=== PATIENT | male | born 1940 | race Caucasian/White ===

== ENCOUNTER → 2018-09-24 12:08 | Outpatient (CLI) | payer MEDICARE, OTHER, SELFPAY ==
--- NOTE | 2018-09-24 12:36 | RAD_ITS ---
STUDY: X-RAY CHEST REASON FOR EXAM: Male, 78 years old. Preop. No chest complaints. TECHNIQUE: PA and lateral views of the chest. COMPARISON: None. FINDINGS: The lungs are clear and expanded. There is no demonstrated pleural abnormality. Normal size heart. Normal mediastinum and mario. Normal visualized pulmonary arteries. Normal visualized aortic arch and descending thoracic aorta. Normal visualized thoracic spine. Normal visualized ribs, clavicles, and shoulders. There is no demonstrated abnormality of the visualized soft tissue structures of the upper abdomen. RAD/Chest PA and Lateral IMPRESSION: Normal x-ray examination of the chest. Electronically Signed: Malachi Morales DO at 12:56 EST Tel , Service support ,
--- NOTE | 2018-09-24 12:48 | EKG12_ITS ---
Test Reason : Blood Pressure : / mmHG Vent. Rate : 054 BPM Atrial Rate : 054 BPM P-R Int : 186 ms QRS Dur : 102 ms QT Int : 428 ms P-R-T Axes : 004 057 037 degrees QTc Int : 405 ms Sinus bradycardia Otherwise normal ECG Confirmed by DB HERRERA, MAGDALENA ([id number]), book or script editor AMALIA SANABRIA ([id number]) on 09/25/2018 9:37:29 AM Referred By: Clark Sanabria Confirmed By:MAGDALENA ACE MD
[2018-09-24 13:59] LABS: Hemoglobin A1c 7.7 % (4.2-6.3)
== END ==
PROVIDERS: Family Provider Preventive Medicine Occupational Medicine; PCP Preventive Medicine Occupational Medicine; Referring Provider Orthopaedic Surgery; Visit Provider Orthopaedic Surgery
DX: Z01.810 Encounter for preprocedural cardiovascular examination (principal); Z01.811 Encounter for preprocedural respiratory examination; E11.9 Type 2 diabetes mellitus without complications
CPT/HCPCS: 36415; 71046; 83036; 93005

== ENCOUNTER → 2020-09-09 13:22 | Outpatient (CLI) | payer MEDICARE, SELFPAY ==
[2020-09-09 14:18] LABS: Hemoglobin A1c 8.9 % (3.8-5.6)
[2020-09-09 14:40] LABS: ALB/GLOB Ratio 1.1 RATIO (0.9-2.4); AST(SGOT) 27 U/L (15-37); Alanine Aminotransfer ALT/SGPT 36 U/L (16-61); Albumin, Serum 3.7 g/dL (3.2-5.0); Alkaline Phosphatase 90 U/L (45-117); Anion Gap 7 (5-15); BUN 18 mg/dL (7-18); BUN/Creat Ratio 31.1 RATIO (10-20); Chloride 104 mmol/L (98-107); Cholesterol 117 mg/dL (200); Creatinine, Serum 0.58 mg/dL (0.70-1.30); EST Glomerular Filtration Rate 144 mL/min (>60); Est Glom Filt Rate - Afr Amer 174 mL/min (>60); Globulin 3.3 g/dL (2.2-4.2); Glucose 203 mg/dL (74-106); High Density Lipoprotein 43 mg/dL; PSA,Total - Annual Screen 2.62 ng/mL (0.00-4.00); Potassium 3.5 mmol/L (3.5-5.1); Sodium Level 140 mmol/L (136-145); Triglycerides 79 mg/dL; Very Low Density Lipoprotein 16 mg/dL (5-40)
== END ==
PROVIDERS: PCP Preventive Medicine Occupational Medicine; Referring Provider Preventive Medicine Occupational Medicine; Visit Provider Preventive Medicine Occupational Medicine
DX: E78.5 Hyperlipidemia, unspecified (principal); E11.9 Type 2 diabetes mellitus without complications; I10 Essential (primary) hypertension; Z12.5 Encounter for screening for malignant neoplasm of prostate
CPT/HCPCS: 36415; 80053; 80061; 82043; 83036; 84153; G0103

== ENCOUNTER → 2021-03-08 14:13 | Outpatient (CLI) | payer MEDICARE, SELFPAY ==
--- NOTE | 2021-03-08 14:20 | RAD_ITS ---
STUDY: X-RAY - LUMBAR SPINE REASON FOR EXAM: Male, 80 years old. Low back pain TECHNIQUE: 2 view(s) of the lumbar spine were obtained. COMPARISON: None FINDINGS: Normal lumbar lordosis. There is no substantial scoliosis. There is a normal alignment of the vertebrae. There is multilevel endplate spondylosis of the lumbar vertebrae. There is multi-level degenerative disc disease with multi-level disc space narrowing. There is no demonstrated fracture. The soft tissue structures are unremarkable. RAD/Lumbar Spine 2 or 3 Views IMPRESSION: Degenerative changes of the spine, as detailed above. Electronically Signed: Warren Powell MD at 11:15 EDT , Service support ,
== END ==
PROVIDERS: PCP Preventive Medicine Occupational Medicine; Referring Provider Anesthesiology Pain Medicine; Visit Provider Anesthesiology Pain Medicine
DX: M54.9 Dorsalgia, unspecified (principal)
CPT/HCPCS: 72100

== ENCOUNTER 2021-03-31 14:30 | Outpatient (RCR) | payer MEDICARE, SELFPAY ==
--- NOTE | 2021-03-15 15:32 | HP.PTEVAL_ITS ---
Patient's Visit Information LOIDA DONG is a 80 year old M referred to Physical Therapy by Dr. Stephanie Dickinson MD with a diagnosis of BACK AND LEG PAIN. Date of Evaluation: 03/15/21 Physical Therapist: Vianca Marks PT, Cert MDT - Visit Plan Frequency: 2-3x /Week Duration: 4-6 Weeks Plan: POSTURE CORRECTION/STRENGTHENING, INSTRUCTION IN APPROPRIATE BODY MECHANICS AND ACTIVITY MODIFICATIONS. DLS STARTING WITH A NEUTRAL SPINE PROGRESSING ROM TOLERATED. MIRIAM LE ROM, STRETCHING AND STRENGTHENING. HEP INSTRUCTION. 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 Present symptoms: MIRIAM LOW BACK, THIGH PAIN. R>L. INTERMITTENT MIRIAM LE NUMBNESS. RIGHT LE SX'S MUCH GREATER THAN LEFT. PAIN BELOW KNEES MIRIAM BEFORE LAST INJECTION. Present since: ABOUT 18 MONTHS OR SO AGO. Pain Scale: WORST 3/10, LEAST 1/10. Currently: 09/27. Commenced as a result of: NO APPARENT REASON. WAS BOTHERING HIM SOME BEFORE R TKR WHICH WAS ABOUT 18 MONTHS. Symptoms at onset: R BACK AND R LE. Worse: STANDING AND WALKING. LIMPING UP STAIRS DUE TO R KNEE STIFFNESS. Better: SITTING. OTHER: PATIENT REPORTS HIS SX'S ARE A LOT BETTER SINCE LAST NEHEMIAS APPROX 03/10/21. Disturbed sleep: NO. Previous history/Previous treatment: NO CHIROPRACTOR FOR YEARS EXCEPT RECENTLY X 3 VISITS FOR MID BACK PAIN SPRING 2020. NO BACK PT. ONLY ONE BACK NEHEMIAS AND THAT WAS LAST WEEK. NO BACK SURGERY. Coughing/sneezing/straining: NO. Gait: BETTER BUT STIFFNESS RIGHT KNEE ON STEPS. GAIT STILL SOMEWHAT TIME AND DISTANCE LIMITED DUE TO PAIN BUT AGAIN - MUCH BETTER SINCE INJECTION. Difficulty initiating urinatin: NO. Accidents: NO. Unexplained weight loss: NO. Imaging: RECENT LUMBAR X-RAY - STUDY: X- RAY - LUMBAR SPINE. REASON FOR EXAM: Male, 80 years old. Low back pain. TECHNIQUE: 2 view(s) of the lumbar spine were obtained. COMPARISON: None. . FINDINGS: Normal lumbar lordosis. There is no substantial scoliosis. There is a. normal alignment of the vertebrae. There is multilevel endplate spondylosis of the lumbar vertebrae. There is. multi-level degenerative disc disease with multi-level disc space. narrowing. There is no demonstrated fracture. The soft tissue structures are unremarkable. . RAD/Lumbar Spine 2 or 3 Views. IMPRESSION: Degenerative changes of the spine, as detailed above. . Electronically Signed: Warren Powell MD. at 11:15 EDT. 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 OTHER: IS CURRENTLY GETTING CHEMOTHERAPY AND RADIATION JUST CONCLUDED FOR LUNG CANCER. - Objective Sitting/Standing Posture: FH. DECREASED LORDOSIS. Active Correction of posture: NE. Other Observations: INDEP TRANSFER SIT TO STAND WITHOUT UE ASSIST. INDEP GAIT INTO PT WITHOUT ANY ASSISTIVE DEVICES OR LOB. Motor deficit: MIRIAM LE STRENGTH STRENGTH GROSSLY 5/5 WITH MMT'ING EXCEPT HIPS 4/5. Sensory deficit: DECREASED RIGHT THIGH AND KNEE LIGHT TOUCH COMPARED TO LEFT. ROM deficit: TIGHT MIRIAM HIP FLEXORS, HS'S AND GASTROC SOLEUS COMPLEX'S. Reflexes: NT. Dural Signs: NEGATIVE MIRIAM LE'S. Lumbar mvmt loss: flex - MOD. ext - YANIRA. R SG - MOD. L SG - YANIRA. Core strength: POOR. Palpation: NO ACUTE LUMBAR, SACRAL OR HIP TENDERNESS TODAY. TREATMENT: NEUROMUSCULAR REEDUCATION - RETRAINING OF MVMT AND POSTURE FOR SITTING, LYING AND STANDING ACTIVITIES. - Goals Goal 1:: DECREASE C/O LOW BACK AND MIRIAM LE SX'S. Goal Time Frame: 4-6 Weeks Goal 2:: IMPROVE STANDING AND WALKING FUNCTION Goal Time Frame: 4-6 Weeks Goal 3:: INSTRUCT INPROPHYLAXIS Goal Time Frame: 4-6 Weeks - Anticipated Interventions Patient/Client Instruction: Educate patient on: Condition, Plan of Care, Risk Factors For the Purpose of:: To improve self management Therapeutic Exercise to Include: Strength training, Body mechanics, Postural training, Flexibilty training, Neuromotor development, Dynamic Lumbar Stabilization For the Purpose of:: To decrease pain, To improve muscle performance and motor function, To increase tolerance to activity/condition/position, To improve ability of physical actions for home/community/work/leisure Thank you for the opportunity to evaluate your patient. For Medicare and Medicare HMO plans, please review the plan of care and approve it. It will need to be FAXED BACK to us at [phone] for Medicare purposes. For Medicare only, by signing this I certify the plan of care. Please let me know if there are questions or concerns regarding this plan of care. Physician Signature: Date:
== END 2021-03-31 19:00 | disposition home or self-care (01) ==
LOC: PT 14:30
PROVIDERS: PCP Preventive Medicine Occupational Medicine; Referring Provider Anesthesiology Pain Medicine; Visit Provider Anesthesiology Pain Medicine
DX: M54.9 Dorsalgia, unspecified (principal); M79.606 Pain in leg, unspecified
CPT/HCPCS: 97035; 97110; 97112; 97162; 97530

== ENCOUNTER → 2021-05-11 17:48 | Outpatient (CLI) | payer MEDICARE, SELFPAY ==
--- NOTE | 2021-05-11 18:15 | MRI_ITS ---
STUDY: MRI LUMBAR SPINE WITHOUT CONTRAST REASON FOR EXAM: Male, 80 years old. BACK AND LEG PAIN TECHNIQUE: Standardized fat and water weighted pulse sequences were obtained in the sagittal and axial planes. COMPARISON: X-ray 03/08/2021 FINDINGS: T12-L1: Normal endplates. Normal disc height, hydration and morphology. Normal bilateral facet joints. Normal central canal and bilateral lateral recesses. Normal bilateral intervertebral neural foramina. Normal lumbar lordosis. There is no substantial scoliosis. Normal conus medullaris that terminates at the L1/L2. L1-2: Normal endplates. Normal disc height, hydration and morphology. Normal bilateral facet joints. Normal central canal and bilateral lateral recesses. Normal bilateral intervertebral neural foramina. L2-3: Normal endplates. Normal disc height, hydration and morphology. Normal bilateral facet joints. Normal central canal and bilateral lateral recesses. Normal bilateral intervertebral neural foramina. L3-4: Mild bilateral facet hypertrophy and ligament flavum hypertrophy. Mild broad disc protrusion produces mild spinal stenosis and mild bilateral neural foraminal stenosis. L4-5: Moderate bilateral facet hypertrophy and ligament flavum hypertrophy. 2 mm of anterolisthesis of L4 on L5 with a moderate broad disc protrusion produces severe spinal stenosis with moderate bilateral neural foraminal stenosis with abutment of the L4 nerve roots bilaterally. L5-S1: Mild broad disc protrusion produces mild spinal stenosis and mild bilateral neural foraminal stenosis. Normal visualized sacral ala. Normal visualized paraspinous soft tissue structures. MRI/Spine Lumbar (Routine) IMPRESSION: Multilevel degenerative changes, as described above. Electronically Signed: Karlo Jones MD at 14:50 EDT Tel , Service support ,
== END ==
PROVIDERS: PCP Preventive Medicine Occupational Medicine; Referring Provider Anesthesiology Pain Medicine; Visit Provider Anesthesiology Pain Medicine
DX: M54.9 Dorsalgia, unspecified (principal); M79.606 Pain in leg, unspecified
CPT/HCPCS: 72148

== ENCOUNTER → 2023-02-09 | Outpatient (CLI) | payer MEDICARE, SELFPAY ==
--- NOTE | 2023-02-09 13:38 | MRI_ITS ---
STUDY: MRI LUMBAR SPINE WITHOUT CONTRAST REASON FOR EXAM: Male, 82 years old. pain into BILATERAL HIPS AND INTO LEGS TECHNIQUE: MRI examination lumbar spine fusion protocol including multiplanar multiecho noncontrast imaging. Contrast: No contrast administered. COMPARISON: 05/11/2021 FINDINGS: Vertebral bodies and alignment. 1. Vertebral body height is maintained throughout the lumbar spine. There has been interval mild wedge compression deformity at T12, Schmorl''s node is identified in the superior endplate of T12 which has developed in the interval. 2. There is a grade 1 anterolisthesis of L4 and L5 estimated at approximately 7 mm anterolisthesis. Discogenic endplate changes are present at the L4-5 level. 3. No destructive marrow replacement processes. 4. Paraspinous soft tissue planes have normal appearance. Normal appearance of the muscular fascial planes of the erector spinae. 5. Normal appearance of the sacrum and sacroiliac joints. Intervertebral disks levels. T12-L1: No evidence of disc herniation or canal stenosis, interval development of Schmorl''s node along the superior endplate of T12 as noted above. No disc herniation or canal stenosis at the T12-L1 level. L1-2: Disc desiccation, broad-based posterior disc bulge and minimal osteophyte without disc herniation canal or foraminal narrowing. L2-3: Disc desiccation, loss of disc height, degenerative endplate changes and broad-based disc bulge and osteophyte without evidence of acute disc herniation canal or foraminal narrowing. Mild facet hypertrophic changes. L3-4: Disc desiccation, facet hypertrophic changes, ligamentum flavum hypertrophy also noted. No acute disc herniation, central canal however is maintained at approximately 7 mm, and there is mild crowding of nerve roots in the lateral recesses in part contributed by concentric chronic appearing disc bulge, findings are stable. There is mild foraminal narrowing without terry nerve root impingement although the emerging RIGHT L3 nerve root is in contact with the disc. L4-5: Degenerative grade 1 anterolisthesis, no pars defects noted. Facet and ligament flavum hypertrophy noted. There is narrowing the central thecal sac to 6 mm, and effacement of the lateral recesses bilaterally. There also appears to be a synovial cyst on the LEFT which significantly deforms the LEFT lateral recess with potential nerve root impingement. Narrowing of the neural foramina bilaterally. L5-S1: Disc desiccation, broad-based posterior disc bulge and osteophyte complex. There is minimal retrolisthesis. No canal stenosis. There is narrowing of the neural foramina particularly on the LEFT and there is contact with the emerging LEFT L5 nerve root. Spinal cord: Normal appearance of the spinal cord and conus. Conus is located at L1. Cauda equina are remarkable for marked crowding of nerve roots at the L4-5 level. Early kinking of nerve roots also noted within the lumbar cistern. No evidence of cord compression or edema. No intramedullary signal abnormality noted. MRI/Spine Lumbar (Routine) IMPRESSION: 1. Extensive multilevel lumbar spondylosis. 2. Persistent grade 1 anterolisthesis of L4 and L5 contributed by degenerative facet changes. There is however moderate narrowing the central canal and significant narrowing of the lateral recesses with potential nerve root impingement as detailed. There is an anteriorly directed synovial cyst on the LEFT which significantly deforms the LEFT lateral recess with potential nerve root impingement. 3. Chronic changes at L5-S1, no evidence of canal stenosis, there is however contact with the emerging L5 nerve root on the LEFT with a chronic appearing disc bulge and osteophyte complex. 4. Moderate spondylosis at remaining levels without canal stenosis. 5. Interval development of wedge deformity at T12 and Schmorl''s node along the superior endplate of T12. No canal stenosis. 6. Normal appearance of the spinal cord and conus. Electronically Signed: Karlo Alfonso MD at 0:45 EDT ,
== END | disposition home or self-care (01) ==
LOC: MRI 13:04
PROVIDERS: PCP Preventive Medicine Occupational Medicine; Referring Provider Orthopaedic Surgery; Visit Provider Orthopaedic Surgery
DX: M48.061 Spinal stenosis, lumbar region without neurogenic claudication (principal); M54.2 Cervicalgia
CPT/HCPCS: 72148

== ENCOUNTER → 2023-03-22 | Outpatient (CLI) | payer MEDICARE, SELFPAY ==
--- NOTE | 2023-03-22 11:57 | US_ITS ---
INDICATION: CHRONIC KIDNEY 2 DISEASE EXAMINATION: Ultrasound US Kidney(s) complete (eg, kidneys and bladder) TECHNIQUE: Segovia scale and color doppler images were obtained of the kidneys. COMPARISON: FINDINGS: RIGHT KIDNEY: 12.0 cm length. There is no hydronephrosis. No shadowing calculus, focal lesion or perinephric collection is demonstrated. LEFT KIDNEY: 12.0 cm length. There is no hydronephrosis. No shadowing calculus, focal lesion or perinephric collection is demonstrated. URINARY BLADDER: Distended. Bladder volume 431 mL. Right ureteral jet was visualized, the left jet was not visualized. Prostate: 5.0 x 4.1 x 4.9 cm.. US/Kidney and Bladder IMPRESSION: Negative renal ultrasound. Electronically Signed: Paulette Bee MD at 23:14 EDT ,
== END | disposition home or self-care (01) ==
PROVIDERS: PCP Preventive Medicine Occupational Medicine; Referring Provider Student in an Organized Health Care Education/Training Program; Visit Provider Student in an Organized Health Care Education/Training Program
DX: N18.2 Chronic kidney disease, stage 2 (mild) (principal); R80.9 Proteinuria, unspecified
CPT/HCPCS: 76770

== ENCOUNTER → 2023-04-05 | Outpatient (CLI) | payer MEDICARE, SELFPAY ==
[2023-04-05 15:39] LABS: Absolute Lymphocyte Count 1.61 X10^3/uL (0.83-4.51); Absolute Neutrophil Count 2.3 X10^3/uL (2.0-7.7); Basophil# 0.02 X10^3/uL; Basophil% 0.4 % (0-1); Eosinophil# 0.06 X10^3/uL; Eosinophils% 1.3 % (0-5); Hematocrit 41.6 % (40-54); Hemoglobin 14.5 g/dL (13.0-16.5); Lymphocyte # 1.61 X10^3/ul (0.83-4.51); Lymphocyte % 35.9 % (19-41); Mean Corp Hgb Conc 34.9 g/dL (32-36); Mean Corpuscular Hgb 30.2 pg (27.0-32.0); Mean Corpuscular Volume 86.7 fL (80-94); Mean Platelet Vol. 9.8 fl (6.2-12.0); Monocyte# 0.45 X10^3/uL; NRBC Flagged by Analyzer 0 % (0-5); Neutrophil # 2.33 X10^3/uL (2.7-7.7); Neutrophil % 52.2 % (47-70); Platelet Count 146 K/mm3 (150-450); RBC Distribution Width CV 12.5 % (11.6-14.6); RBC Distribution Width SD 39.7 fl (35.1-43.9); White Blood Count 4.5 K/mm3 (4.4-11.0)
[2023-04-05 16:19] LABS: Anion Gap 8 (5-15); BUN 19 mg/dL (7-18); BUN/Creat Ratio 29.1 RATIO (10-20); Calcium,Total 8.9 mg/dL (8.5-10.1); Chloride 104 mmol/L (98-107); Creatinine, Serum 0.65 mg/dL (0.70-1.30); EST Glomerular Filtration Rate 124 mL/min (>60); Est Glom Filt Rate - Afr Amer 150 mL/min (>60); Glucose 144 mg/dL (74-106); Potassium 3.5 mmol/L (3.5-5.1); Sodium Level 140 mmol/L (136-145); Uric Acid 4.9 mg/dL (3.5-7.2)
[2023-04-05 16:31] LABS: Protein, Urine (Random) 39.7 mg/dL (<11.9); Protein:Creat Ratio 170 mg/g CRE (0-200)
[2023-04-06 08:12] LABS: PTHIN 44.5 pg/mL (18.4-80.1)
== END | disposition home or self-care (01) ==
LOC: LAB 15:07
PROVIDERS: PCP Preventive Medicine Occupational Medicine; Referring Provider Student in an Organized Health Care Education/Training Program; Visit Provider Student in an Organized Health Care Education/Training Program
DX: N18.2 Chronic kidney disease, stage 2 (mild) (principal); E21.1 Secondary hyperparathyroidism, not elsewhere classified; D63.1 Anemia in chronic kidney disease
CPT/HCPCS: 36415; 80048; 82570; 82652; 82784; 83970; 84156; 84165; 84166; 84550; 85025; 86334

== ENCOUNTER → 2023-04-18 | Outpatient (CLI) | payer MEDICARE, SELFPAY ==
--- NOTE | 2023-04-18 11:03 | EKG12_ITS ---
Test Reason : PREOP Blood Pressure : / mmHG Vent. Rate : 063 BPM Atrial Rate : 107 BPM P-R Int : 000 ms QRS Dur : 082 ms QT Int : 436 ms P-R-T Axes : 000 067 039 degrees QTc Int : 446 ms Sinus rhythm with occasional Premature ventricular complexes Abnormal ECG Confirmed by SHAAN HERRERA, CRISTY ([id number]), editorial project manager LISETTE GUERRERO ([id number]) on 04/20/2023 8:49:17 AM Referred By: Bull York Confirmed By:CASI GARDUNO MD
[2023-04-18 12:14] LABS: Hemoglobin A1c 6.1 % (3.8-5.6)
[2023-04-18 12:50] LABS: HIV - WCH Non-Reactive (Nonreactive); Hepatitis B Surface Antibody Non-Reactive; Hepatitis C Antibody Non-Reactive (Nonreactive)
[2023-04-19 05:07] LABS: Hepatitis A AB, Total Negative (Negative)
[2023-05-30 11:20] LABS: Magnesium 1.8 mg/dL (1.6-2.6)
--- NOTE | 2023-06-08 11:05 | PCM.HP.BLA ---
History and Physical Add?Addendum MR#: [id number] Acct: [id number] Name: LOIDA SALCIDO Rep #: [id number] : 1940 Provider: Dr. Bull York DO Age/Sex: 82/M Location: [facility] [place].ISABELA Status: Signed Intake Vital Signs 01/20/2313:42 Height 6 ft 1 in Intake Visit Reasons: LUMBER SPINE Chief Complaint: Lumbar spine pain Is patient in pain?: Yes Pain scale (1-10): 9 Allergies No Known Allergies Allergy (Verified 01/27/23 11:08) Medications amlodipine 5 mg-valsartan 320 mg tablet 1 tab PO DAILY 02/16/22 [History Confirmed 01/27/23] atorvastatin 20 mg tablet 20 mg PO DAILY 02/16/22 [History Confirmed 01/27/23] carvedilol 25 mg tablet ea PO 02/16/22 [History Confirmed 01/27/23] esomeprazole magnesium 40 mg capsule,delayed release cap PO 02/16/22 [History Confirmed 01/27/23] glipizide 5 mg tablet, extended release 24 hr 5 mg PO DAILY 02/16/22 [History Confirmed 01/27/23] hydrochlorothiazide 25 mg tablet 25 mg PO DAILY 02/16/22 [History Confirmed 01/27/23] pioglitazone 30 mg tablet 30 mg PO DAILY 02/16/22 [History Confirmed 01/27/23] potassium chloride 8 mEq capsule,extended release 8 meq PO DAILY 02/16/22 [History Confirmed 01/27/23] PFSH Social History Smoking Status: Former smoker HPI LUMBER SPINE Details: Parts of this documentation were recorded by a scribe, this documentation accurately reflects the service provided and the decisions made by me, Dr. Bull York DO 01/27/23 [id number]. LOIDA SALCIDO is a 82 year old M here today for follow up on ongoing low back pain. He rates his pain a 9/10 today. He reports the pain has been getting worse over the last several months. He does report numbness and tingling into his legs bilaterally. He states the pain is constant. His previous injections with Dr. Dickinson were not helpful. He would like to discuss what to options are available for control of his pain. He has tried Tylenol, Ibuprofen, heat, ice and stretching to help with his pain. Mr. Salcido returns after not having been seen in quite a while. He was dealing with his who was dying of lung cancer. She passed on in July of last year. He states that overall his symptoms are getting worse the pain goes down both legs with just a little bit of walking. Sitting down makes the pain go away. 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 His MRI scan was from 2020 so it is almost 2 years old. He wishes to have something done surgically and get it fixed. Can get some work done in his urologic system and his eyes sometime this month so it would probably be the end of February before any surgical intervention. On examination today it is noted that he can stand on his toes he can stand on his heels. He walks with a forward bent posture. Extension of his lumbar spine increases his pain and bending forward relieves his pain. He has good motor strength of all the major muscle groups of both lower extremities. He has barely perceptible Achilles reflexes and patellar reflexes bilaterally. We are ordering a new MRI scan of the lumbar spine. Plan on doing his decompression at L4-5 in February. I will see him again after the MRI scan. Coding Level of Care Code Off vis,est,level 3 Diagnoses Spinal stenosis at L4-L5 level M48.061 Time Spent (min) 25 Assessment and Plan Assessment and Plan (1) Spinal stenosis at L4-L5 level: Status: Acute
== END | disposition home or self-care (01) ==
LOC: PAT 06-08 15:52
PROVIDERS: Anesthesiology; PCP Preventive Medicine Occupational Medicine; Referring Provider Orthopaedic Surgery; Visit Provider Orthopaedic Surgery
DX: Z01.810 Encounter for preprocedural cardiovascular examination (principal); Z01.812 Encounter for preprocedural laboratory examination
CPT/HCPCS: 36415; 83036; 83735; 86703; 86706; 86708; 86803; 87081; 93005

== ENCOUNTER → 2023-05-18 | Outpatient (CLI) | payer MEDICARE, SELFPAY | END | disposition home or self-care (01) | LOC: LAB 11:18 | PROVIDERS: PCP Preventive Medicine Occupational Medicine; Referring Provider Internal Medicine Cardiovascular Disease; Visit Provider Internal Medicine Cardiovascular Disease | DX: E11.9 Type 2 diabetes mellitus without complications (principal); I49.3 Ventricular premature depolarization; R94.31 Abnormal electrocardiogram [ECG] [EKG] | CPT/HCPCS: 36415; 84443 ==

== ENCOUNTER → 2023-05-30 | Outpatient (CLI) | payer MEDICARE, SELFPAY | END | disposition home or self-care (01) | LOC: PSN 09:58 | PROVIDERS: PCP Preventive Medicine Occupational Medicine; Referring Provider Physician Assistant Medical; Visit Provider Physician Assistant Medical | DX: I49.3 Ventricular premature depolarization (principal); R94.31 Abnormal electrocardiogram [ECG] [EKG] | CPT/HCPCS: 93225; 93226 ==

== ENCOUNTER → 2023-06-02 | Outpatient (CLI) | payer MEDICARE, SELFPAY ==
--- NOTE | 2023-06-02 06:56 | ECHOCS_ITS ---
Reason For Study: Pre Op Procedure This was a 2D Doppler, Color Flow transthoracic echocardiogram. The study was technically difficult. Contrast injection was performed. Exam performed in department. Left Ventricle Normal LV size. Left ventricular systolic function is normal. The estimated ejection fraction is 60 %. Normal diastology for age. No regional wall motion abnormalities noted. Right Ventricle Normal RV size. Normal systolic function. Atria Normal left atrium. The right atrium is mildly enlarged. Mitral Valve The mitral valve is structurally normal. No prolapse or stenosis seen. Mild (1+) mitral valve insufficiency. Tricuspid Valve Normal tricuspid valve. Trivial tricuspid valve insufficiency. Right ventricular systolic pressure estimated to be 28 mmHg. Aortic Valve Trisinus/trileaflet aortic valve. Mild (1+) eccentric aortic valve insufficiency. Pulmonic Valve Normal pulmonic valve. Mild (1+) pulmonic valve insufficiency. Great Vessels Normal aortic root. Pericardium/Pleural No pericardial effusion. Medication 22 gauge I.V. with prn adaptor inserted into right arm. Diluted definity 1.5ml given slow IV push to enhance endocardial definition. MMode/2D Measurements & Calculations LVIDd: 4.5 cm IVSd: 0.97 cm Ao root diam: 3.8 cm LVIDs: 3.6 cm LVPWd: 0.95 cm LA dimension: 3.8 cm RVDd: 5.3 cm FS: 19.9 % LAV(MOD-bp): 65.2 ml LVAd ap4: 41.6 cm2 SV(MOD-sp4): 73.9 ml LAV(MOD-bp) Indexed: 28.8 ml/m2 LVLd ap4: 9.9 cm LAV(MOD-sp2): 54.6 ml EDV(MOD-sp4): 140.9 ml LAV(MOD-sp4): 72.0 ml EDV(sp4-el): 148.8 ml LVAs ap4: 24.7 cm2 LVLs ap4: 7.7 cm ESV(MOD-sp4): 67.0 ml ESV(sp4-el): 67.8 ml EF(MOD-sp4): 52.5 % EF(sp4-el): 54.5 % SV(sp4-el): 81.1 ml LA A4 area: 23.8 cm2 RA A4 area: 27.9 cm2 TAPSE: 3.2 cm Time Measurements MV dec time: 0.23 sec Doppler Measurements & Calculations MV E max sarabjit: 85.6 cm/sec Lat Peak E' Sarabjit: 10.9 cm/sec Med Peak E' Sarabjit: 9.9 cm/sec MV A max sarabjit: 66.1 cm/sec E/E' lat: 7.8 E/E' med: 8.6 MV E/A: 1.3 MV V2 max: 96.9 cm/sec MV P1/2t max sarabjit: 97.9 cm/sec Ao V2 max: 133.4 cm/sec MV max P.8 mmHg MV P1/2t: 81.0 msec Ao max P.1 mmHg MV V2 mean: 58.3 cm/sec Ao V2 mean: 88.6 cm/sec MV mean P.6 mmHg MV dec slope: 354.2 cm/sec2 Ao mean P.6 mmHg MV V2 VTI: 32.1 cm MVA(P1/2t): 2.7 cm2 Ao V2 VTI: 35.1 cm AV (velocity ratio): 0.73 LV V1 max: 98.9 cm/sec MR max sarabjit: 553.2 cm/sec PA V2 max: 96.5 cm/sec LV V1 max P.9 mmHg MR max P.4 mmHg PA V2 mean: 65.9 cm/sec LV V1 mean P.3 mmHg LV V1 mean: 71.2 cm/sec LV V1 VTI: 25.5 cm TR max sarabjit: 249.6 cm/sec TR max P.9 mmHg ECHO/Echo Complete W/ Contrast Interpretation Summary The estimated ejection fraction is 60 %. The right atrium is mildly enlarged. Mild (1+) mitral valve insufficiency. Mild (1+) eccentric aortic valve insufficiency. Mild (1+) pulmonic valve insufficiency. The study was technically difficult. Contrast injection was performed. Ordering Physician: Greg Nam Referring Physician: Elsa Shirley Performed By: Brodwolf, Robert, RCS
--- NOTE | 2023-06-06 15:36 | STRESSREP_ITS ---
Stress Test Report Date: 06/02/2023 Procedure: Pharmacologic stress nuclear imaging study Indications: Abnormal ECG Consent: Per the patient Procedure: The patient underwent pharmacologic (Regadenoson 0.4mg ) evaluation with a peak heart rate of 70 beats per minute (50%predicted maximal heart rate) and a peak blood pressure of 146/70 mmHg. The baseline ECG demonstrated sinus bradycardia with PVCs. The peak pharmacologic ECG demonstrated no ischemic changes. Frequent PVCs at rest, during infusion and in recovery. There was no complaint of chest discomfort during pharmacologic infusion or recovery. The patient was injected with 14.3 millicuries of technetium 99m Cardiolite and subsequently rest SPECT Cardiolite nuclear imaging was obtained in the horizontal long, vertical long, and short axis views. The patient underwent pharmacologic (Regadenoson) evaluation. The patient was injected with 44.7 millicuries of technetium 99m Cardiolite and subsequently stress SPECT Cardiolite nuclear imaging was obtained in the horizontal long, vertical long, and short axis views. A gated Cardiolite study at peak stress was obtained. The examination was stopped secondary to completion of protocol. Rest and stress SPECT Cardiolite nuclear imaging status post realignment, normalization, and attenuation correction demonstrate no fixed or reversible perfusion defects. There is end systolic thickening and brightening. The gated Cardiolite study demonstrates myocardial thickening and inward wall motion. The reported LVEF is 75%. Impression: 1. Pharmacologic (Regadenoson) evaluation 2. Peak pharmacologic ECG with no ischemic changes. 3. Frequent PVCs at baseline as well as during infusion and in recovery. 5. Rest and stress SPECT Cardiolite nuclear imaging demonstrate relative uniform tracer uptake and myocardial perfusion appearing within normal limits. 6. The gated Cardiolite study reports an LVEF of 75%. This note was generated with [employer] software. It may contain incorrect words, spelling, and punctuation that were not noted in checking the note before signing.
== END | disposition home or self-care (01) ==
PROVIDERS: PCP Preventive Medicine Occupational Medicine; Referring Provider Physician Assistant Medical; Visit Provider Physician Assistant Medical
DX: Z01.810 Encounter for preprocedural cardiovascular examination (principal); R94.31 Abnormal electrocardiogram [ECG] [EKG]; I49.3 Ventricular premature depolarization; I10 Essential (primary) hypertension; E78.5 Hyperlipidemia, unspecified
CPT/HCPCS: 78452; 93017; 93306; A9500; Q9957; A4216; C8929; J2785

== ENCOUNTER → 2023-06-12 | Outpatient (CLI) | payer MEDICARE, SELFPAY ==
--- NOTE | 2023-06-12 13:45 | RAD_ITS ---
STUDY: X-RAY CHEST REASON FOR EXAM: Male, 82 years old. pre-operative- Pacemaker TECHNIQUE: Single AP portable view of the chest. COMPARISON: None. FINDINGS: The lungs are clear and expanded. There is no demonstrated pleural abnormality. Normal size heart. Normal mediastinum and mario. Normal visualized pulmonary arteries. There is atherosclerotic tortuosity of the aortic arch and descending thoracic aorta. There are diffuse degenerative changes of the visualized thoracic spine. Normal visualized ribs, clavicles, and shoulders. There is no demonstrated abnormality of the visualized soft tissue structures of the upper abdomen. RAD/Chest PA and Lateral IMPRESSION: Degenerative changes, as described above. No demonstrated acute cardiopulmonary process. Electronically Signed: Corwin Hayward MD at 8:33 EDT ,
[2023-06-12 13:58] LABS: Bacteria 0 SEEN /hpf (None Seen); Mucous, Urine 0 SEEN /hpf (<or=2+); Red Blood Cells-Urine 0 SEEN /hpf (0-5); Squamous Epithelial Cells - UA 0 SEEN /hpf (0-5); White Blood Cells 0 SEEN /hpf (0-5)
[2023-06-12 15:01] LABS: Hematocrit 42.7 % (40-54); Hemoglobin 14.4 g/dL (13.0-16.5); Mean Corp Hgb Conc 33.7 g/dL (32-36); Mean Corpuscular Hgb 29.6 pg (27.0-32.0); Mean Corpuscular Volume 87.9 fL (80-94); Mean Platelet Vol. 10.2 fl (6.2-12.0); Platelet Count 155 K/mm3 (150-450); RBC Distribution Width CV 12.7 % (11.6-14.6); RBC Distribution Width SD 41.1 fl (35.1-43.9); Red Blood Count 4.86 M/mm3 (4.6-6.2); White Blood Count 4.7 K/mm3 (4.4-11.0)
[2023-06-12 15:03] LABS: Color, Urine Yellow (Yellow); Glucose, Dipstick Normal (Normal); Ketone-Dipstick Negative (Negative); Leukocyte Esterase-Dipstick Negative /ul (Negative); Nitrite-Dipstick Negative (Negative); Occult Blood-Urine 10 /ul (Negative); Protein-Dipstick 15 mg/dl (Negative); Urine Bilirubin Dipstick Negative (Negative); Urine Clarity Clear (Clear); Urine Urobilinogen Normal (Normal)
[2023-06-12 15:08] LABS: International Normalized Ratio 1.2; Prothrombin Time (Protime)PT. 15.3 SECONDS (11.7-14.9)
[2023-06-12 15:23] LABS: Anion Gap 5 (5-15); BUN 16 mg/dL (7-18); BUN/Creat Ratio 27.3 RATIO (10-20); Chloride 104 mmol/L (98-107); Creatinine, Serum 0.59 mg/dL (0.70-1.30); EST Glomerular Filtration Rate 140 mL/min (>60); Est Glom Filt Rate - Afr Amer 170 mL/min (>60); Glucose 148 mg/dL (74-106); Potassium 3.5 mmol/L (3.5-5.1); Sodium Level 138 mmol/L (136-145)
== END | disposition home or self-care (01) ==
PROVIDERS: PCP Preventive Medicine Occupational Medicine; Referring Provider Nurse Practitioner Family; Visit Provider Nurse Practitioner Family
DX: I49.5 Sick sinus syndrome (principal); I44.2 Atrioventricular block, complete; I49.3 Ventricular premature depolarization
CPT/HCPCS: 36415; 71046; 80048; 81001; 85027; 85610

== ENCOUNTER 2023-06-19 13:34 | Observation (INO) | payer MEDICARE, SELFPAY ==
--- NOTE | 2023-06-13 10:58 | PCM.HP.BLA ---
History and Physical Date of Admission: 06/19/23 This is a pleasant 82 year old male who presents to the cardiac recyclable materials [facility] for permanent pacemaker placement. He has a history significant for hypertension, diabetes mellitus and dyslipidemia. He was previously seen for preoperative clearance to undergo back surgery for spinal stenosis. As part of his preop work-up, an ECG was done. It was noted to be abnormal with frequent PVCs. His Holter monitor from 05/30/2023 demonstrated episodes of sinus arrest with accelerated idioventricular escape. Patient denies any chest pains or shortness of breath either at rest or with exertion. Denies any palpitations. No orthopnea. No PND. No ankle edema. Denies any syncope or presyncope. No lightheadedness or dizziness. Intake Vital Signs See EMR Allergies See EMR Medications See EMR [facility] Medical History Abnormal EKG Arthritis Back pain Benign positional vertigo Cardiac arrhythmia DDD (degenerative disc disease), lumbar Diabetes Elevated PSA Essential hypertension Former smoker Gastric reflux High cholesterol History of edema History of pain when walking History of stress test Hyperlipidemia Hypertension Hypokalemia Low back pain Muscle spasm of back Shortness of breath on exertion Sleep apnea Spinal stenosis at L4-L5 level Wears glasses Surgical History History of ankle surgery History of laparoscopic cholecystectomy History of total bilateral knee replacement (TKR) Hx of hemorrhoidectomy Family History Brother Hypertension Atrial fibrillation Cancer prostateFather Cancer prostate Social History Smoking Status: Former smoker how long ago did patient quit smokin years ago alcohol intake: never substance use type: does not use caffeine: Yes Type: coffee Number of servings: 2 ROS Const Const: Positive for fatigue and daytime sleepiness; Negative for weakness, headache(s), frequent falls, difficulty sleeping or excessive sweating Eyes Eyes: Negative for loss of peripheral vision, transient loss of vision, blurry vision, double vision or tunnel vision ENT ENT: Positive for balance problems; Negative for headache(s), dizziness or Nosebleed/epistaxis Cardio Chest Pain: No Palpitations: No Edema: Right Muscle aches with walking: None Resp Respiratory: Negative for SOB with activity, SOB at rest, SOB orthopnea\SOB lying down, Cough or paroxysmal nocturnal dyspnea GI GI: Negative nausea, vomiting, heartburn or black,tarry stools : Negative for hematuria Musc Musc: Positive for joint pain and balance problems; Negative for muscle aches/ myalgia or muscle weakness Skin Skin: Negative non-healing lesions, rash or unusual bruising Neuro Neuro: Negative for dizziness, lightheadedness, near syncope, syncope, frequent falls, headache(s), weakness, blurry vision, double vision or lack of coordination Jonathan Hematologic/Lymphatic: Negative for easy bleeding or easy bruising Endo Endo: Positive for fatigue; Negative for excessive sweating or increased thirst/drinking Psych Psych: Negative for anxiety or depression Allergy Allergy/Immunology: Negative for hives and Negative for rash Cardiology Exam Const Appearance: comfortable and no acute distress Nutritional Appearance: well nourished Neck Neck: no JVD Carotids: Negative bruit Chest Auscultation: Bilateral: Clear to Auscultation Cardio Rate: regular rate Rhythm: regular rhythm Heart sounds: S1 normal and S2 normal Neuro General: patient alert, patient awake and patient oriented x3 Extremities Lower Extremity Edema: None: Bilateral Supplemental Info Supplemental Information Echocardiogram 06/02/2023: Interpretation Summary The estimated ejection fraction is 60 %. The right atrium is mildly enlarged. Mild (1+) mitral valve insufficiency. Mild (1+) eccentric aortic valve insufficiency. Mild (1+) pulmonic valve insufficiency. The study was technically difficult. Contrast injection was performed. Assessment and Plan Assessment and Plan (1) Accelerated idioventricular rhythm: Plan: Patient's Holter monitor from 05/30/2023 demonstrated episodes of sinus arrest with accelerated idioventricular escape. He will proceed with permanent pacemaker placement. (2) Sick Sinus syndrome: Plan: Patient will proceed with permanent pacemaker placement.
[2023-06-16 10:58] VITALS: BMI 29.9
[2023-06-19] VITALS (9 sets, daily range): BP systolic 119–146; BP diastolic 69–85; PULSE 55–70; RESP 14–18; TEMP 36.3–36.7; O2SAT 94–98; BMI 29.8
--- NOTE | 2023-06-19 13:38 | CL.IE_ITS ---
Patient: LOIDA DONG Study Date: 06/19/2023 Performing: Jonh Gracia MD : 1940 Age: 82 Gender: male PROCEDURES PERFORMED LP04-([id number])INITIAL PACER INSERT+DUAL LEADS INDICATIONS Sinoatrial node dysfunction/Sick sinus syndrome PROCEDURE DETAILS The patient was brought to the Catheterization Lab in the postabsorptive nonsedated state. Informed consent was obtained prior to the procedure. Local anesthetic was given subcutaneously to the left upper chest area with Lidocaine 2%. Access was achieved and a guidewire was advanced into the left subclavian vein. PPM ventricular lead was inserted / positioned to right ventricular apex. PPM ventricular lead testing performed. PPM ventricular lead testing performed. PPM atrial lead was inserted / positioned to the right atrial appendage. PPM atrial lead testing performed. The Atrial lead sutured in place with 2-0 Silk. The Ventricular PM lead sutured in place with 2-0 Silk. PPM generator was attached to the lead(s) and inserted into the pocket. Device pocket was irrigated with antibiotic. Subcutaneous closure was completed with 3-0 Vicryl. Skin closure was completed with 4-0 Vicryl. Steri-strips applied to left subclavicular incision. The patient tolerated the procedure well. Estimated Blood Loss: < 10 mls IMPLANTED / EX-PLANTED DEVICES IMPLANTED DEVICE(S): PPM Generator - Control Panel Assembler: [employer], Model # Assurity MRI pulse generator PM [id number] , Serial # [id number] PPM Atrial lead - Control Panel Assembler: [employer], Model # Tendril STS 2088TC , Serial # [id number] PPM Ventricular lead - Control Panel Assembler: [employer], Model # Tendril STS 2088TC , Serial # [id number] DEVICE PARAMETERS ATRIAL LEAD PARAMETERS: P wave- 1.8 (mV) threshold- 0.75 (V) impedence- 440 (OHMS) VENTRICULAR LEAD PARAMETERS: R wave- 10.5 (mV) threshold- 0.5 (V) impedence- 710 (OHMS) DEVICE PARAMETERS: Mode- DDIR Lower rate- 60 Upper rate- 120 CONCLUSIONS / RECOMMENDATIONS Device Conclusions: Successful implantation of a dual chamber pacemaker Device Recommendations: Follow up with Primary Care Physician PROCEDURE MEDICATIONS Versed 1 mg IV Fentanyl 50 mcg IV Versed 1 mg IV Oxygen: 2 L/min via nasal cannula Antibiotic given in appropriate timeframe. Ancef 2 Gm IV @ 06/19/2023 12:23:32 Signed By Jonh Gracia MD On 06/19/2023 13:37:44 Jonh Gracia MD
[2023-06-19] MEDS: Carvedilol 25 MG Tablet PO (21:16)
[2023-06-19] MEDS: Atorvastatin Calcium 20 MG Tablet PO (21:16)
[2023-06-19] MEDS: Acetaminophen 325 MG Tablet 650 MG PO (21:19)
[2023-06-20 03:05] VITALS: BP 136/66; PULSE 61; RESP 18; TEMP 36.7; O2SAT 99
--- NOTE | 2023-06-20 05:55 | RAD_ITS ---
EXAM: XR CHEST, 3 VIEWS CLINICAL INDICATION: Post permanant ICD/Pacemaker -- inspiration/expiration. Arms Down. Wet read to MD TECHNIQUE: Frontal, lateral and one additional view of the chest. COMPARISON: 2 view chest 06/12/2023 FINDINGS: LUNGS AND PLEURAL SPACES: Unremarkable. No consolidation or edema. No pneumothorax. No effusion. HEART: Unremarkable. Cardiac silhouette not enlarged. MEDIASTINUM: Central airways and mediastinal contour are unremarkable. BONES/JOINTS: Unremarkable. SOFT TISSUES: Unremarkable. TUBES, LINES AND DEVICES: Left chest pacer with leads in the right atrium and right ventricle. RAD/Chest 3 View IMPRESSION: Left chest pacer with leads in the right atrium and right ventricle. No pneumothorax identified. Electronically Signed: Kanu Barrios MD at 4:36 EDT ,
--- NOTE | 2023-06-20 08:00 | PCM.PN.CARD ---
Subjective Subjective Patient seen and evaluated. Appears to be doing well. No complaints. Objective Data Vital Signs: Vital Signs Temp Pulse Resp BP Pulse Ox O2 Del Method 98.0 F 61 18 136/66 H 99 Room Air 06/20/23 03:05 06/20/23 03:05 06/20/23 03:05 06/20/23 03:05 06/20/23 03:05 06/20/23 03:15 Oxygen Delivery Method Room Air Weight: 225 lb 15.581 oz Body Mass Index (BMI) 29.8 Intake & Output: Intake and Output for Last 24 Hours 06/18/23 06/19/23 06/20/23 23:59 23:59 23:59 Intake Total 860 / 860 120 / 120 Output Total 625 / 625 200 / 200 Balance 235 / 235 -80 / -80 Cardiology Labs/Tests Rhythm: EKG: ECHO: Stress Test: Cardiac Cath: PCI: CT Surgery: Holter monitor: EPS: PPM: CXR: Chest CT Scan: Radiography Diagnostic Testing: Radiology Impression Chest X-Ray 06/20/23 05:55 IMPRESSION: Left chest pacer with leads in the right atrium and right ventricle. No pneumothorax identified. Electronically Signed: Kanu Barrios MD at 4:36 EDT , Physical Exam Const alert, oriented x3 and no apparent distress General Appearance: cooperative HEENT hearing grossly normal bilaterally Head and Scalp: atraumatic Eyes EOMs intact bilaterally Neck General: normal visual inspection Chest inspection of chest normal and palpation of chest normal Resp normal respiratory effort Auscultation: clear to auscultation bilaterally Cardio regular rate, regular rhythm, S1 normal heart sound and S2 normal heart sound Jugular Venous Distention: JVD GI normal to inspection, nondistended, normoactive bowel sounds Extremity normal capillary refill and no pedal edema Peripheral Pulses: Yes pulses 2+ throughout and femoral pulses present Skin no rashes or lesions noted Neuro oriented x3 and CN's II-XII intact bilaterally Psych Appearance: grossly normal and appropriate Assessment & Plan Assessment/Plan (1) Pacemaker: PLAN: Patient presented with sick sinus syndrome and idioventricular rhythm. Underwent permanent pacemaker implantation yesterday. Chest x-ray is unremarkable. Pacemaker interrogation done. If normal patient will be discharged for outpatient follow-up.
[2023-06-20 08:03] VITALS: BP 122/69; PULSE 60; RESP 14; TEMP 36.4
--- NOTE | 2023-06-20 08:32 | PCM.DC ---
Discharge Instructions Diet Discharge Diet: No restrictions (as you feel able. No excessive stretching. No lifting your arm over your head (keep elbow below shoulder level) until seen for your pacemaker check. Do not lift your elbow away from your side until you are seen for your first visit. Keep the arm sling on if it helps remind you not to lift your arm.) Activity Discharge Activity: May Not Drive May shower in (days): 2 Additional Activity Instructions:: May shower or bathe on [day 3]. Do not scrub the incision or soak in the tub. Just wash with soap and let the water run over the incision. Gently pat dry with towel. Medications: Take your pain medication as directed. Refer to your discharge instruction sheet for a list of medications you are to take. Dressing / Incision Call your doctor if your incision/area has: Continuous Slow Oozing, Sudden Increased Bleeding, Increased Pain/ Swelling, Increased Redness, Foul Smelling Discharge and Swelling at the incision site Call your doctor if you observe: Fever of 101 or Higher, Shortness of breath, Dizziness, Fainting spells, Swelling in the ankles, Chest pain, Prolonged hiccupping and Increased palpitations (irregular heartbeat) Suture Line Care: Avoid Pulling/Pushing and Avoid Pinching/Bending Cleanse incision/area with: Do not get Incision Wet and Keep Dressing Clean & Dry Additional Dressing/Incision Instructions:: When dressing is removed, wash and dry incision. Keep covered with a light bandage if it is rubbing against your clothing. Do not cover the incision with an airtight bandage. Change the bandage daily. Do not remove steri strips. The strips will fall off on their own. Follow Up Care Please Follow Up With: Jonh Gracia MD When: Pacer follow-up on June 26 at 1 PM Test Results: Test results from this visit will be discussed in further detail at your follow-up appointment, if applicable. Discharge Plan Admission Admit Date/Time: 06/19/23 13:34 Attending Provider: Jonh Gracia Primary Care Provider: Benton Multani Discharge Orders/Prescriptions Prescriptions: No Action carvedilol 25 mg tablet 25 mg PO BID Patient Comments: take 1 tablet by mouth twice a day hydrochlorothiazide 25 mg tablet 25 mg PO DAILY Patient Comments: take 1 tablet by mouth once daily pioglitazone 30 mg tablet 30 mg PO DAILY atorvastatin 20 mg tablet 20 mg PO DAILY glipizide 5 mg tablet extended release 24hr 5 mg PO DAILY esomeprazole magnesium 40 mg capsule,delayed release(DR/EC) 40 mg PO DAILY potassium chloride 8 mEq capsule, extended release 8 meq PO DAILY Patient Comments: take 2 capsules by mouth once daily with food omega-3 fatty acids [Super [place]-3] 1,000 mg capsule 1,000 mg PO DAILY mecobalamin (vitamin B12) 1,000 mcg tablet,chewable 1,000 mcg PO DAILY pyridoxine (vitamin B6) 100 mg tablet 100 mg PO DAILY flaxseed oil 1,000 mg capsule 1,000 mg PO DAILY Rx Instructions: administer with a meal magnesium glycinate-mag oxide 120 mg magnesium capsule 360 mg PO DAILY cholecalciferol (vitamin D3) [Vitamin D3] 25 mcg (1,000 unit) capsule 25 mcg PO DAILY PreserVision AREDS 4,296 mcg-226 mg-90 mg capsule 1 cap PO BID ascorbic acid (vitamin C) [C-500] 500 mg tablet extended release 500 mg PO DAILY coenzyme Q10 [Co Q-10] 100 mg capsule 100 mg PO DAILY amlodipine-valsartan 5-320 mg tablet 1 tab PO DAILY Patient Comments: take 1 tablet by mouth once daily Referrals / Follow Up: Benton Multani DO [Primary Care Provider] -
[2023-06-20] MEDS: Pantoprazole Sodium 40 MG Tablet PO (09:17)
[2023-06-20] MEDS: glipiZIDE XL 5 MG Tablet PO (09:17)
[2023-06-20] MEDS: Potassium Chloride Oral Tablet 10 MEQ PO (09:17)
[2023-06-20] MEDS: Pioglitazone Hydrochloride 30 MG Tablet PO (09:17)
[2023-06-20] MEDS: amLODIPine 5 MG Tablet PO (09:18)
[2023-06-20] MEDS: Carvedilol 25 MG Tablet PO (09:18)
[2023-06-20] MEDS: hydroCHLOROthiazide 25 MG Tablet PO (09:18)
--- NOTE | 2023-06-20 09:20 | CASEMGMT ---
RN CM: This RN CM met with pt at chairside. Pt alert, states he does live alone but is independent at baseline and has neighbors and friends available to assist him if needed. Pt states he often has visitors that stop by to check on him almost daily. Pt denies any discharge needs at this time. DC Plan: Return home with support of neighbors and friends. Beverly Dobbins RN CM
[2023-06-20] MEDS: Losartan Potassium 100 MG Tablet PO (11:30)
[2023-06-20 12:22] VITALS: BP 120/50; RESP 13; TEMP 36.6
== END 2023-06-20 08:33 | disposition home or self-care (01) ==
LOC: PCU 14:00
PROVIDERS: Admitting Provider Internal Medicine Cardiovascular Disease; PCP Preventive Medicine Occupational Medicine; Visit Provider Internal Medicine Cardiovascular Disease
DX: Z45.018 Encounter for adjustment and management of other part of cardiac pacemaker (principal); I49.5 Sick sinus syndrome; E11.9 Type 2 diabetes mellitus without complications; E78.5 Hyperlipidemia, unspecified; Z87.891 Personal history of nicotine dependence; E78.00 Pure hypercholesterolemia, unspecified; I10 Essential (primary) hypertension; K21.9 Gastro-esophageal reflux disease without esophagitis
CPT/HCPCS: 33208; 71047; 99152; 99153; 99221; J7040; J7050; C1894; G0378

== ENCOUNTER 2023-07-25 07:38 | Observation (INO) | payer MEDICARE, SELFPAY ==
--- NOTE | 2023-07-24 09:24 | HP.PCM_ITS ---
History and Physical Add?Addendum MR#: [id number] Acct: [id number] Name: LOIDA SALCIDO Rep #: [id number] : 1940 Provider: Dr. Bull York DO Age/Sex: 82/M Location: [facility] [place] Status: Signed Intake Vital Signs 01/20/2313:42 Height 6 ft 1 in Intake Visit Reasons: LUMBER SPINE Chief Complaint: Lumbar spine pain Is patient in pain?: Yes Pain scale (1-10): 9 Allergies No Known Allergies Allergy (Verified 01/27/23 11:08) Medications amlodipine 5 mg-valsartan 320 mg tablet 1 tab PO DAILY 02/16/22 [History Confirmed 01/27/23] atorvastatin 20 mg tablet 20 mg PO DAILY 02/16/22 [History Confirmed 01/27/23] carvedilol 25 mg tablet ea PO 02/16/22 [History Confirmed 01/27/23] esomeprazole magnesium 40 mg capsule,delayed release cap PO 02/16/22 [History Confirmed 01/27/23] glipizide 5 mg tablet, extended release 24 hr 5 mg PO DAILY 02/16/22 [History Confirmed 01/27/23] hydrochlorothiazide 25 mg tablet 25 mg PO DAILY 02/16/22 [History Confirmed 01/27/23] pioglitazone 30 mg tablet 30 mg PO DAILY 02/16/22 [History Confirmed 01/27/23] potassium chloride 8 mEq capsule,extended release 8 meq PO DAILY 02/16/22 [History Confirmed 01/27/23] PFSH Social History Smoking Status: Former smoker HPI LUMBER SPINE Details: Parts of this documentation were recorded by a scribe, this documentation accurately reflects the service provided and the decisions made by me, Dr. Bull York DO 01/27/23 1508. LOIDA SALCIDO is a 82 year old M here today for follow up on ongoing low back pain. He rates his pain a 9/10 today. He reports the pain has been getting worse over the last several months. He does report numbness and tingling into his legs bilaterally. He states the pain is constant. His previous injections with Dr. Dickinson were not helpful. He would like to discuss what to options are available for control of his pain. He has tried Tylenol, Ibuprofen, heat, ice and stretching to help with his pain. Mr. Salcido returns after not having been seen in quite a while. He was dealing with his who was dying of lung cancer. She passed on in July of last year. He states that overall his symptoms are getting worse the pain goes down both legs with just a little bit of walking. Sitting down makes the pain go away. 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 His MRI scan was from 2020 so it is almost 2 years old. He wishes to have something done surgically and get it fixed. Can get some work done in his urologic system and his eyes sometime this month so it would probably be the end of February before any surgical intervention. On examination today it is noted that he can stand on his toes he can stand on his heels. He walks with a forward bent posture. Extension of his lumbar spine increases his pain and bending forward relieves his pain. He has good motor strength of all the major muscle groups of both lower extremities. He has barely perceptible Achilles reflexes and patellar reflexes bilaterally. We are ordering a new MRI scan of the lumbar spine. Plan on doing his decompression at L4-5 in February. I will see him again after the MRI scan. Coding Level of Care Code Off vis,est,level 3 Diagnoses Spinal stenosis at L4-L5 level M48.061
[2023-07-25] VITALS (12 sets, daily range): BP systolic 131–171; BP diastolic 69–104; PULSE 56–70; RESP 12–20; TEMP 35.7–37; O2SAT 96–100; BMI 29.3; BMI 29.1
[2023-07-25] MEDS: Lactated Ringers 1,000 ML 15 ML IV ×2 (06:07→08:50)
[2023-07-25] MEDS: Magnesium 2 GM for ERAS IV (06:07)
[2023-07-25] MEDS: Insulin Lispro 100 UNIT/ML INSULN.PEN SC ×2 (06:21→20:43)
[2023-07-25 06:27] LABS: Bedside Glucose 265 mg/dL (74-106)
[2023-07-25] MEDS: Acetaminophen 500 MG Tablet 1000 MG PO ×3 (06:28→20:41)
[2023-07-25] MEDS: Cefazolin 2 GM in 0.9% Normal Saline (100mL Bag) 100 ML IV (08:15)
--- NOTE | 2023-07-25 08:45 | RAD_ITS ---
STUDY: X-RAY - LUMBAR SPINE REASON FOR EXAM: Male, 82 years old. LAMINECTOMY L4-5 TECHNIQUE: 1 lateral view(s) of the lumbar spine were obtained. COMPARISON: None FINDINGS: The localizing instrument is seen posterior to the L5 vertebrae. RAD/Spine 1 View Any Level IMPRESSION: The localizing instrument is seen posterior to the L5 vertebrae. Electronically Signed: Artur Baldwin MD at 11:07 EST ,
[2023-07-25] MEDS: THROMBIN (RECOMBINANT) 20,000 UNIT VIAL 20000 UNIT TOPICAL (08:53)
--- NOTE | 2023-07-25 09:25 | RAD_ITS ---
STUDY: X-RAY - LUMBAR SPINE REASON FOR EXAM: Male, 82 years old. LAMINECTOMY TECHNIQUE: Single lateral view(s) of the lumbar spine were obtained. COMPARISON: Comparison is made with prior study done earlier in the day. FINDINGS: The localization instrument is seen posterior to the L5-S1 disc space level. RAD/Spine 1 View Any Level IMPRESSION: The localization instrument is seen posterior to the L5-S1 disc space level. Electronically Signed: Artur Baldwin MD at 14:23 EST ,
--- NOTE | 2023-07-25 09:50 | RAD_ITS ---
STUDY: X-RAY - LUMBAR SPINE REASON FOR EXAM: Male, 82 years old. LAMINECTOMY TECHNIQUE: Single lateral view(s) of the lumbar spine were obtained. COMPARISON: None FINDINGS: A localization instrument is seen overlying the posterior L4-L5 disc space level. A second superior localizer is seen posterior to the L3-L4 disc space level. RAD/Spine 1 View Any Level IMPRESSION: Localization instruments as described above. Electronically Signed: Artur Baldwin MD at 11:05 EST ,
[2023-07-25 10:52] LABS: Bedside Glucose 170 mg/dL (74-106)
--- NOTE | 2023-07-25 11:16 | OP.PCM_ITS ---
Report of Operation Description of Surgical Findings:: Preoperative diagnosis: Severe spinal stenosis L4-5 Postoperative diagnosis: Same Procedure: Complete lumbar laminectomy decompression L4-5 CPT code 88576 Surgeon: Dr. York Operating Room Registered Nurse: Frida Valencia NP Anesthesia: General endotracheal by [facility] EBL: 100 cc Drains: None Complications: Initially we started the surgery at the L5-S1 level but quickly realized that that probably was not the correct level and we took another x-ray to confirm that we had to move up just half a vertebral body. Procedure: Patient was taken to the OR where he was placed under general endotracheal anesthesia. A Cortes catheter was inserted. Neuro monitoring placed her leads on the patient. He was then placed in the prone position on the Brian frame. After appropriate positioning with care to protect his bony prominences his genitalia his brachial plexus and ulnar nerves on both sides and his facial features and neck the back was prepped draped standard fashion I then made a longitudinal incision centered over what appeared to be L4-5. Subcut aneous tissues were incised the length of the skin incision. An open the lumbar fascia of the left of the spinous processes and elevated the paravertebral muscles off the lamina of 5 and then took an intraoperative x-ray that appeared that we were at L4-5. However we quickly realized that that was probably the wrong level that we were at 5 1 so I took another intraoperative x-ray to confirm the level which was just a little above where we were. We then removed the spinous process of L4. Thinned the lamina down with double-action rongeurs. Note that we opened both sides and put the super slide retractors in place then thinned down the lamina with double-action rongeurs I release ligamentum flavum off the underside of the lamina with curettes. I then performed a laminotomy on both sides the left and right. I then began the removal of the ligamentum flavum this was a long and tedious process. In addition the patient was and what we call and boozer is used blood throughout the procedure but it was only slow bleeding. Ligamentum flavum was removed slowly with a 45 degree Kerrison rongeurs. Was also released off the top of 5. Then it was slowly removed. We protected the dura whenever we could either by retracting it or using a cottonoids when possible. Micki I removed all the ligamentum flavum off the right side which was his worst side. I then moved to the other side of the bed and did the same thing working from the right in order to remove the ligamentum flavum on the left side. I checked the foramina and what was found to be quite open below. Note that we thoroughly irrigated with copious amounts of sterile saline in the course of the case every 10 to 15 minutes. We felt that the bleeding had slowed down considerably and we felt that we did not need a drain. We placed amnionic membranes over the laminotomy site. Gelfoam was placed over the top of that. Then close lumbar fascia using [id number] suture with #1 Vicryl for closure of subcutaneous tissues with 2-0 Vicryl in interrupted fashion. The skin was then approximated using skin clips. Sterile dressings were then applied. The patient was then recovered in the OR moved to his hospital bed and taken to recovery in satisfactory condition. This the end of operative summary on Viktor Salcido. This is Dr. York dictating.
[2023-07-25] MEDS: Lactated Ringers 1,000 ML 100 ML IV (12:00)
[2023-07-25 12:56] LABS: Bedside Glucose 169 mg/dL (74-106)
--- NOTE | 2023-07-25 13:02 | SUR.PHASEI ---
awaiting room upstairs
[2023-07-25] MEDS: oxyCODONE 5 MG Tablet PO ×2 (14:03→18:00)
[2023-07-25] MEDS: Cefazolin 1 GM/50 ML BAG IV (15:54)
[2023-07-25] MEDS: Morphine 2 MG/ML Syringe IV (15:54)
--- NOTE | 2023-07-25 17:41 | PCM.PN.HOSP ---
Subjective Subjective 82-year-old male presents to the hospital for elective lumbar laminectomy decompression of L4-5 due to spinal stenosis. Doing well after surgery, vital signs are stable and pain is controlled Objective Data Objective Data Vital Signs: Vital Signs Temp Pulse Resp BP Pulse Ox O2 Del Method O2 Flow Rate 98.2 F 56 L 18 145/104 H 98 Room Air 4 07/25/23 17:25 07/25/23 17:25 07/25/23 17:25 07/25/23 17:25 07/25/23 17:25 07/25/23 17:36 07/25/23 12:54 Oxygen Flow Rate (L/min) 4 Oxygen Delivery Method Room Air Weight: 221 lb Body Mass Index (BMI) 29.1 Intake & Output: Intake and Output for Last 24 Hours 07/24/23 07/25/23 07/26/23 03:59 03:59 03:59 Intake Total 2264 / 2264 Output Total 400 / 400 Balance 1864 / 1864 Lab / Micro Data Labs: Laboratory Results - last 24 hr 07/25/23 06:10: POC Glucose 265 H 07/25/23 10:33: POC Glucose 170 H 07/25/23 12:37: POC Glucose 169 H Radiography Diagnostic Testing: Radiology Impression Spine X-Ray 07/25/23 08:45 IMPRESSION: The localizing instrument is seen posterior to the L5 vertebrae. Electronically Signed: Artur Baldwin MD at 11:07 EST , Spine X-Ray 07/25/23 09:25 IMPRESSION: The localization instrument is seen posterior to the L5-S1 disc space level. Electronically Signed: Artur Baldwin MD at 14:23 EST , Spine X-Ray 07/25/23 09:50 IMPRESSION: Localization instruments as described above. Electronically Signed: Artur Baldwin MD at 11:05 EST , Physical Exam Narrative General: Alert, Oriented x3, Cooperative, No apparent distress HEENT: Atraumatic, PERRLA, EOMI, Normocephalic Oral: Moist Mucosa Neck: Supple, No JVD Lungs: Diminished, Normal air movement, No rhonchi, No wheeze, No rales Cardiovascular: Regular rate, Regular Rhythm, Normal S1, Normal S2, No murmurs Abdomen: Soft, Non Tender, Non-Distended, No Hepato-splenomegaly Extremities: edema, Capillary Refill Less than 3 Seconds Skin: Dressing CDI Musculoskeletal: No Tenderness to Palpation of Joints or Extremities Neurological: Cranial nerves II-XII grossly intact, Motor Exam 5/5 strength throughout, Sensory exam intact to light touch and pain Psych/Mental Status: Normal Affect, Appropriate Assessment & Plan Assessment/Plan (1) Status post laminectomy: PLAN: Plan 1. Spinal stenosis status post laminectomy on L4-5 on 07/25/2023 ? Pain management per primary ? PT/OT ? We will obtain a CBC and BMP in the morning, if an elevated creatinine then can hold losartan and oral hypoglycemics 2. HTN/HLD/sick sinus syndrome status post pacemaker ? Blood pressures are stable, can resume his home blood pressure medications ? We will monitor and make adjustments as necessary 3. DM2 ? She is on Actos and glipizide, with anticipation of discharge in the morning these can resume ? We will place on Accu-Cheks ACHS ? Sliding scale insulin ? We will monitor and make adjustments as necessary DVT: SCDs Charges/Coding Visit Charges Office Visits / Consults: 93091 OV L3 New
[2023-07-25] MEDS: Carvedilol 25 MG Tablet 50 MG PO (20:41)
[2023-07-25 22:31] LABS: Bedside Glucose 216 mg/dL (74-106)
[2023-07-26 02:00] VITALS: BP 113/62; PULSE 61; RESP 18; TEMP 36.8; O2SAT 97
[2023-07-26] MEDS: Cefazolin 1 GM/50 ML BAG IV (02:27)
[2023-07-26] MEDS: 0.9% Saline Lock 10 ML Syringe IV (02:36)
[2023-07-26] MEDS: Morphine 2 MG/ML Syringe IV (02:36)
[2023-07-26] MEDS: oxyCODONE 5 MG Tablet PO ×2 (06:35→14:02)
[2023-07-26] MEDS: Acetaminophen 500 MG Tablet 1000 MG PO ×2 (06:35→14:02)
[2023-07-26] MEDS: Insulin Lispro 100 UNIT/ML INSULN.PEN SC ×2 (06:35→11:48)
[2023-07-26 06:55] VITALS: O2SAT 98
[2023-07-26 06:58] LABS: Bedside Glucose 174 mg/dL (74-106)
[2023-07-26 07:22] LABS: Absolute Lymphocyte Count 0.95 X10^3/uL (0.83-4.51); Absolute Neutrophil Count 5.2 X10^3/uL (2.0-7.7); Basophil# 0.02 X10^3/uL; Basophil% 0.3 % (0-1); Eosinophil# 0.15 X10^3/uL; Eosinophils% 2.1 % (0-5); Hematocrit 39.2 % (40-54); Hemoglobin 12.9 g/dL (13.0-16.5); Lymphocyte # 0.95 X10^3/ul (0.83-4.51); Lymphocyte % 13.3 % (19-41); Mean Corp Hgb Conc 32.9 g/dL (32-36); Mean Corpuscular Hgb 29.9 pg (27.0-32.0); Mean Corpuscular Volume 90.7 fL (80-94); Mean Platelet Vol. 10.3 fl (6.2-12.0); Monocyte# 0.77 X10^3/uL; Monocyte% 10.8 % (0-10); NRBC Flagged by Analyzer 0 % (0-5); Neutrophil # 5.19 X10^3/uL (2.7-7.7); Neutrophil % 72.9 % (47-70); Platelet Count 122 K/mm3 (150-450); RBC Distribution Width CV 13.2 % (11.6-14.6); RBC Distribution Width SD 43.8 fl (35.1-43.9); Red Blood Count 4.32 M/mm3 (4.6-6.2); White Blood Count 7.1 K/mm3 (4.4-11.0)
[2023-07-26 07:30] VITALS: BP 130/81; PULSE 120; RESP 18; TEMP 36.8; O2SAT 98
[2023-07-26 07:39] LABS: Anion Gap 2 (5-15); BUN 21 mg/dL (7-18); BUN/Creat Ratio 29.2 RATIO (10-20); Calcium,Total 8.6 mg/dL (8.5-10.1); Chloride 102 mmol/L (98-107); Creatinine, Serum 0.72 mg/dL (0.70-1.30); EST Glomerular Filtration Rate 111 mL/min (>60); Est Glom Filt Rate - Afr Amer 134 mL/min (>60); Estimated Creatinine Clearance 64.36 ml/min; Glucose 184 mg/dL (74-106); Potassium 3.4 mmol/L (3.5-5.1); Sodium Level 135 mmol/L (136-145)
[2023-07-26 08:20] VITALS: BP 132/79; PULSE 62; RESP 16; TEMP 36.6; O2SAT 98
[2023-07-26] MEDS: glipiZIDE XL 5 MG Tablet PO (08:33)
[2023-07-26] MEDS: hydroCHLOROthiazide 25 MG Tablet PO (09:37)
[2023-07-26] MEDS: Pioglitazone Hydrochloride 30 MG Tablet PO (09:37)
[2023-07-26] MEDS: Atorvastatin Calcium 20 MG Tablet PO (09:38)
[2023-07-26] MEDS: Potassium Chloride Oral Tablet 10 MEQ PO (09:38)
[2023-07-26] MEDS: Pantoprazole Sodium 40 MG Tablet PO (09:38)
--- NOTE | 2023-07-26 10:16 | CASEMGMT ---
Met with patient to complete EMANUEL form. EMANUEL form explained to patient who voiced understanding and signed form. Original form placed in pt?s chart and copy provided to patient.? Madeleine Gtz, Discharge Planning Asst
--- NOTE | 2023-07-26 11:38 | CASEMGMT ---
STEVEN FRAGA Assessment: Face to Face with pt for initial transition planning/care coordination assessment. STEVEN FRAGA introduced self and role at [facility], pt voices understanding and consents to assessment. Pt is A&O x4 and answers all questions appropriately at this time. Pt sitting up in chair in no distress. Care providers, pharmacy, and demographics verified/updated. Admitting Dx: lumbar laminectomy decompression L4 PCP:Nerissa Specialists:shy York [facility]acy: [facility] Insurance: [employer] Prescription Benefit: yes LNOK: Elisha Ba, dtr Living Arrangements: Pt lives alone in a split level home with no steps to enter. Pt reports he was I in ADL's prior to surgery. Pt dtr will stay with him the first week after surgery, then another dtr the 2nd week and his son the 3rd week if needed. Pt denies concerns at home. Transportation: Pt drives self and denies concerns with transportation. Pt dtr to transport post surgery. DME:Pt has a BGM with sufficient supplies but states he does not use, raised toilet seat, FWW HHC/SNF: Denies hx of Pt states no concerns with going home at time of dc. Pt states no further concerns/needs. CM to follow. Advised pt to ask CM if any further question/concerns/needs arise, voices understanding. Pt Goal: Home Plan: Home
[2023-07-26] MEDS: Potassium Chloride Oral Tablet 20 MEQ 40 MEQ PO (11:48)
[2023-07-26 12:07] LABS: Bedside Glucose 168 mg/dL (74-106)
--- NOTE | 2023-07-26 13:47 | DS.PCM_ITS ---
Providers Date of Admission: 07/25/23 Primary Care Physician: Dr. Benton Multani DO Attending Physician: This is discharge me on Viktor Leaver. This patient was admitted yesterday morning. He underwent lumbar laminectomy at the L4-5 level. He is doing well postoperatively. 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 His dressing is dry. Neurologically he is intact. He is ready for discharge. He has been walking around the hospital with a walker and doing very well. I gave him directions regarding his activities at home. He already has an appointment to see me in a couple of weeks. He has been sent home on oxycodone acetaminophen. This is the end of discharge summary on Viktor Leaver. This is Dr. York dictating. Consultations 07/25/23 12:29 Consult: Hospitalist Routine Consulting Provider: Daryl Moy Reason for Consult: Medical Management EMERGENT Consult: No MD Notified: Yes Date Notified: 07/25/23 Time Notified: 15:37 Method of Notification: Text Reason For Visit: Lumbar laminectomy decompression L4 Diagnosis Discharge Diagnosis (1) Status post laminectomy: Status: Acute Code(s): Z98.890 - Other specified postprocedural states Medications at Discharge Home Medications atorvastatin 20 mg tablet 20 mg PO DAILY cholesterol 02/16/22 esomeprazole magnesium 40 mg capsule,delayed release 40 mg PO DAILY reflux 02/16/22 glipizide 5 mg tablet, extended release 24 hr 5 mg PO DAILY diabetes 02/16/22 hydrochlorothiazide 25 mg tablet 25 mg PO DAILY diuretic 02/16/22 pioglitazone 30 mg tablet 30 mg PO DAILY diabetes 02/16/22 ascorbic acid (vitamin C) 500 mg tablet,extended release (C-500) 500 mg PO DAILY vitamin 04/10/23 cholecalciferol (vitamin D3) 25 mcg (1,000 unit) capsule (Vitamin D3) 25 mcg PO DAILY vitamin 04/10/23 vitamins A,C,S-bnxo-wndcza 4,296 mcg-226 mg-90 mg capsule (PreserVision AREDS) 1 cap PO BID vitamin 04/10/23 omega-3 fatty acids 1,000 mg capsule ([place]-3) 1,000 mg PO DAILY supplement 05/11/23 coenzyme Q10 100 mg capsule (Co Q-10) 100 mg PO DAILY supplement 05/18/23 flaxseed oil 1,000 mg capsule 1,000 mg PO DAILY supplement 05/18/23 magnesium glycinate-mag oxide 360 mg PO DAILY supplement 05/18/23 mecobalamin (vitamin B12) 1,000 mcg chewable tablet 1,000 mcg PO DAILY vitamin 05/18/23 potassium chloride 8 mEq capsule,extended release 8 meq PO DAILY supplement 05/18/23 pyridoxine (vitamin B6) 100 mg tablet 100 mg PO DAILY vitamin 05/18/23 valsartan 320 mg tablet 320 mg PO DAILY #30 tabs 06/29/23 carvedilol 25 mg tablet 50 mg PO BID 07/13/23 oxycodone-acetaminophen 5 mg-325 mg tablet 1 tab PO Q6H PRN pain 10 days #40 tabs 07/26/23 Weight / BMI Weight Weight: 221 lb Body Mass Index (BMI) 29.1 ABG / Lab / Microbiology Data 07/26/23 07:00 07/26/23 07:00 Laboratory: Laboratory Results - last 24 hr 07/25/23 20:40: POC Glucose 216 H 07/26/23 06:34: POC Glucose 174 H 07/26/23 07:00: WBC 7.1, RBC 4.32 L, Hgb 12.9 L, Hct 39.2 L, MCV 90.7, MCH 29.9, MCHC 32.9, RDW Std Deviation 43.8, RDW Coeff of Miguel 13.2, Plt Count 122 L, MPV 10.3, Immature Gran % (Auto) 0.600, Neut % (Auto) 72.9 H, Lymph % (Auto) 13.3 L, [place] % (Auto) 10.8 H, Eos % (Auto) 2.1, Baso % (Auto) 0.3, Absolute Neuts (auto) 5.2, Absolute Lymphs (auto) 0.95, Nucleated RBC % 0, Sodium 135 L, Potassium 3.4 L, Chloride 102, Carbon Dioxide 31.0, Anion Gap 2 L, BUN 21 H, Creatinine 0.72, Estim Creat Clear Calc 64.36, Est GFR (MDRD) Af Amer 134, Est GFR (MDRD) Non-Af 111, BUN/Creatinine Ratio 29.2 H, Glucose 184 H, Calcium 8.6 07/26/23 11:47: POC Glucose 168 H Radiography Diagnostic Testing: Radiology Impression Spine X-Ray 07/25/23 09:25 IMPRESSION: The localization instrument is seen posterior to the L5-S1 disc space level. Electronically Signed: Artur Baldwin MD at 14:23 EST , D/C Instructions May shower in (days): 5 Meaningful Use Info Meaningful Use Diagnoses (Choose all that apply): None applicable Discharge Plan Admission Admit Date/Time: 07/25/23 07:38 Primary Reason for Your Visit: back surgery Attending Provider: Bull York Primary Care Provider: Benton Multani Consulting Providers: Daryl Moy; Sher Cuellar Discharge Orders/Prescriptions Prescriptions: No Action hydrochlorothiazide 25 mg tablet 25 mg PO DAILY Patient Comments: take 1 tablet by mouth once daily pioglitazone 30 mg tablet 30 mg PO DAILY atorvastatin 20 mg tablet 20 mg PO DAILY glipizide 5 mg tablet extended release 24hr 5 mg PO DAILY esomeprazole magnesium 40 mg capsule,delayed release(DR/EC) 40 mg PO DAILY potassium chloride 8 mEq capsule, extended release 8 meq PO DAILY Patient Comments: take 2 capsules by mouth once daily with food omega-3 fatty acids [[place]-3] 1,000 mg capsule 1,000 mg PO DAILY mecobalamin (vitamin B12) 1,000 mcg tablet,chewable 1,000 mcg PO DAILY pyridoxine (vitamin B6) 100 mg tablet 100 mg PO DAILY flaxseed oil 1,000 mg capsule 1,000 mg PO DAILY Rx Instructions: administer with a meal magnesium glycinate-mag oxide 120 mg magnesium capsule 360 mg PO DAILY valsartan 320 mg tablet 320 mg PO DAILY Qty: 30 11RF cholecalciferol (vitamin D3) [Vitamin D3] 25 mcg (1,000 unit) capsule 25 mcg PO DAILY PreserVision AREDS 4,296 mcg-226 mg-90 mg capsule 1 cap PO BID ascorbic acid (vitamin C) [C-500] 500 mg tablet extended release 500 mg PO DAILY coenzyme Q10 [Co Q-10] 100 mg capsule 100 mg PO DAILY carvedilol 25 mg tablet 50 mg PO BID Rx Instructions: must administer with a meal/food oxycodone-acetaminophen 5-325 mg tablet 1 tab PO Q6H PRN (Reason: pain) 10 Days Qty: 40 0RF Referrals / Follow Up: Benton Multani DO [Primary Care Provider] - Disposition Disposition (needs filled in before D/C Order can be placed): Home, Self Care
[2023-07-26 13:55] VITALS: BP 128/76; PULSE 70; RESP 18; TEMP 36.8; O2SAT 97
== END 2023-07-26 15:41 | disposition home or self-care (01) ==
LOC: SDC 13:25 → MS3 13:25
PROVIDERS: Family Medicine; Admitting Provider Orthopaedic Surgery; PCP Preventive Medicine Occupational Medicine; Referring Provider Orthopaedic Surgery; Visit Provider Orthopaedic Surgery
PROC: (CPT 63030; principal; 2023-07-25 07:00)
DX: M48.061 Spinal stenosis, lumbar region without neurogenic claudication (principal); E11.9 Type 2 diabetes mellitus without complications; Z87.891 Personal history of nicotine dependence; Z79.899 Other long term (current) drug therapy; Z79.84 Long term (current) use of oral hypoglycemic drugs; I10 Essential (primary) hypertension; E78.00 Pure hypercholesterolemia, unspecified; K21.9 Gastro-esophageal reflux disease without esophagitis; Z95.0 Presence of cardiac pacemaker
CPT/HCPCS: 63047; 00630; 72020; 80048; 82962; 85025; 94668; 96361; 96365; 96366; 96375; 96376; 97162; 97530; 99221; 99252; J7120; A4216; G0378; G0463; J2405

== ENCOUNTER → 2024-10-28 | Outpatient (CLI) | payer MEDICARE, SELFPAY ==
--- NOTE | 2024-10-28 13:58 | ECHOD_ITS ---
Reason For Study Reason For Study: ARRHYTHMIA Procedure This was a 2D Doppler, Color Flow transthoracic echocardiogram. Exam performed in department. Left Ventricle Normal LV size. Mild concentric left ventricular hypertrophy. The left ventricular ejection fraction is 65 %. Stage 1 diastolic dysfunction. Right Ventricle Normal right ventricle. Atria The left and right atria are normal. Mitral Valve Mild (1+) mitral valve insufficiency. Tricuspid Valve Trivial tricuspid valve insufficiency. Unable to estimate RV systolic pressure due to insufficient tricuspid regurgitant envelope. Aortic Valve Trisinus/trileaflet aortic valve. Mild (1+) aortic valve insufficiency. Pulmonic Valve The pulmonic valve is not well visualized. Great Vessels Mildly dilated aortic root. Pericardium/Pleural No pericardial effusion. MMode/2D Measurements & Calculations LVIDd: 4.5 cm IVSd: 1.2 cm LVOT diam: 2.2 cm LVIDs: 2.9 cm LVPWd: 1.0 cm LVOT area: 3.8 cm2 RVDd: 4.8 cm FS: 35.3 % asc Aorta Diam: 3.8 cm LAV(MOD-bp): 50.1 ml LVAd ap4: 31.4 cm2 LAV(MOD-bp) Indexed: 21.6 ml/m2 LVLd ap4: 9.5 cm LAV(MOD-sp2): 58.3 ml EDV(MOD-sp4): 83.0 ml LAV(MOD-sp4): 35.4 ml EDV(sp4-el): 88.4 ml LVAs ap4: 19.0 cm2 LVLs ap4: 8.5 cm ESV(MOD-sp4): 36.5 ml ESV(sp4-el): 36.2 ml EF(MOD-sp4): 56.0 % EF(sp4-el): 59.1 % LVAd ap2: 30.4 cm2 SV(MOD-sp4): 46.5 ml SV(MOD-sp2): 44.8 ml LVLd ap2: 9.9 cm SI(MOD-sp4): 20.1 ml/m2 SI(MOD-sp2): 19.4 ml/m2 EDV(MOD-sp2): 78.9 ml EDV(sp2-el): 78.9 ml LVAs ap2: 18.2 cm2 LVLs ap2: 8.3 cm ESV(MOD-sp2): 34.1 ml ESV(sp2-el): 33.8 ml EF(MOD-sp2): 56.8 % SV(sp4-el): 52.2 ml Ao sinus diam: 3.[address] Junction: 3.1 cm LA dimension(2D): 3.5 cm LA A4 area: 15.0 cm2 RA A4 area: 17.6 cm2 TAPSE: 2.4 cm Time Measurements MV dec time: 0.25 sec Doppler Measurements & Calculations MV E max sarabjit: 49.8 cm/sec Lat Peak E' Sarabjit: 8.5 cm/sec Med Peak E' Sarabjit: 7.4 cm/sec MV A max sarabjit: 62.3 cm/sec E/E' lat: 5.9 E/E' med: 6.8 MV E/A: 0.80 MV dec slope: 198.2 cm/sec2 Ao V2 max: 94.9 cm/sec LV V1 max: 83.5 cm/sec Ao max P.6 mmHg LV V1 max P.8 mmHg Ao V2 mean: 69.4 cm/sec LV V1 mean P.7 mmHg Ao mean P.1 mmHg LV V1 mean: 63.6 cm/sec Ao V2 VTI: 20.8 cm LV V1 VTI: 18.7 cm AV (velocity ratio): 0.90 JIMENEZ(I,D): 3.4 cm2 JIMENEZ(V,D): 3.4 cm2 SV(LVOT): 71.6 ml PA V2 max: 102.7 cm/sec ECHO/Echo Complete Interpretation Summary Mild concentric left ventricular hypertrophy. The left ventricular ejection fraction is 65 %. Stage 1 diastolic dysfunction. Mild (1+) mitral valve insufficiency. Mild (1+) aortic valve insufficiency. Mildly dilated aortic root. Ordering Physician: Greg Nam Referring Physician: MD Benton Multani Performed By: Lucina Carmichael RDCS
[2024-10-28 15:45] LABS: Anion Gap 6 (5-15); BUN 22 mg/dL (7-18); BUN/Creat Ratio 36.1 RATIO (10-20); Chloride 105 mmol/L (98-107); Creatinine, Serum 0.61 mg/dL (0.70-1.30); EST Glomerular Filtration Rate 134 mL/min (>60); Est Glom Filt Rate - Afr Amer 162 mL/min (>60); Glucose 127 mg/dL (74-106); Potassium 3.4 mmol/L (3.5-5.1); Sodium Level 141 mmol/L (136-145)
== END | disposition home or self-care (01) ==
PROVIDERS: PCP Preventive Medicine Occupational Medicine; Referring Provider Internal Medicine Cardiovascular Disease; Visit Provider Internal Medicine Cardiovascular Disease
DX: E11.9 Type 2 diabetes mellitus without complications (principal); I49.3 Ventricular premature depolarization; M25.471 Effusion, right ankle; M25.472 Effusion, left ankle
CPT/HCPCS: 36415; 80048; 93306

== ENCOUNTER → 2024-11-11 | Outpatient (CLI) | payer MEDICARE, SELFPAY ==
[2024-11-11 11:53] LABS: Creatinine, Urine (random) < 13.00 mg/dL (NO RANGE EST.); Microalbumin,Random Urine 15.5 mg/L (NO RANGE EST.)
[2024-11-11 21:14] LABS: Anion Gap 3 (5-15); BUN 20 mg/dL (7-18); Calcium,Total 9.4 mg/dL (8.5-10.1); Chloride 105 mmol/L (98-107); Creatinine, Serum 0.59 mg/dL (0.70-1.30); EST Glomerular Filtration Rate 140 mL/min (>60); Est Glom Filt Rate - Afr Amer 169 mL/min (>60); Glucose 153 mg/dL (74-106); Sodium Level 139 mmol/L (136-145)
[2024-11-11 21:44] LABS: Cholesterol 96 mg/dL (200); High Density Lipoprotein 58 mg/dL; Triglycerides 63 mg/dL; Very Low Density Lipoprotein 13 mg/dL (5-40)
== END | disposition home or self-care (01) ==
PROVIDERS: Physician Assistant Medical; PCP Preventive Medicine Occupational Medicine; Referring Provider Internal Medicine Cardiovascular Disease; Visit Provider Internal Medicine Cardiovascular Disease
DX: E78.5 Hyperlipidemia, unspecified (principal); I10 Essential (primary) hypertension
CPT/HCPCS: 36415; 80048; 80061; 82043; 82570

== ENCOUNTER → 2025-03-31 | Outpatient (CLI) | payer MEDICARE, SELFPAY ==
[2025-03-31 16:14] LABS: Anion Gap 11 (5-15); BUN 23 mg/dL (4-19); BUN/Creat Ratio 37.8 RATIO (10-20); Calcium,Total 9.4 mg/dL (7.6-11.0); Carbon Dioxide 25.9 mmol/L (21.0-32.0); Chloride 104 mmol/L (98-108); Glucose 130 mg/dL (70-99); Potassium 3.6 mmol/L (3.3-5.1)
--- OUTSIDE RECORDS SUMMARY | 2025-03-31 22:50 | XMS RPT_ITS | CCD ---
Author Organization [facility] Care Team Providers Care Dry Wall Installations Mechanic Name Role Phone TAMMY COKER MD Admitting Unavailable TAMMY COKER MD Attending Unavailable TAMMY COKER MD Primary Care Unavailable TAMMY COKER MD Consulting Unavailable PROVIDER, UNKNOWN Consulting Unavailable PROVIDER, UNKNOWN Consulting Unavailable PROVIDER, UNKNOWN Consulting Unavailable CLARK JOHN DR Admitting Unavailable CLARK JOHN DR Attending Unavailable CLARK JOHN DR Primary Care Unavailable ROGELIO CLAROS DO Consulting Unavailable PROVIDER, UNKNOWN Consulting Unavailable CLARK JOHN DR Admitting Unavailable CLARK JOHN DR Attending Unavailable CLARK JOHN DR Primary Care Unavailable ROGELIO CLAROS DO Consulting Unavailable PROVIDER, UNKNOWN Consulting Unavailable ROGELIO CLAROS DO Primary Care Physician [phone] ROGELIO CLAROS DO Primary Care Physician [phone] ROGELIO CLAROS DO Primary Care Unavailable ROGELIO CLAROS DO Attending Unavailable ROGELIO CLAROS DO Attending Unavailable ROGELIO CLAROS DO Primary Care Unavailable ROGELIO CLAROS DO Attending Unavailable ROGELIO CLAROS DO Primary Care Unavailable ROGELIO CLAROS DO Attending Unavailable ROGELIO CLAROS DO Primary Care Unavailable Dr. Rogelio Claros Primary Care Provider Dr. Rogelio Claros Referring Provider [phone] Dr. Bull York Attending Provider [phone] Dr. Rogelio Claros Primary Care Provider Dr. Rogelio Claros Referring Provider [phone] Dr. Bull York Attending Provider [phone] Dr. Jud Collazo Attending Provider [phone] Dr. Bull York Referring Provider [phone] Dr. Greg Nam Attending Provider [phone] ABHAY Santana Referring Provider ABHAY Santana Other Provider Roof SHEETROCK APPLICATOR, SHEETROCK APPLICATOR-Delmy Gillespie Attending Provider Dr. Bull York Other Provider Dr. Rogelio Claros Primary Care Provider Dr. Jud Collazo Attending Provider [phone] Dr. Bull York Referring Provider [phone] Dr. Rogelio Claros Referring Provider [phone] Dr. Greg Nam Attending Provider [phone] Dr. Greg Nam Referring Provider [phone] Dr. Bull York Attending Provider [phone] ABHAY Santana Referring Provider ABHAY Santana Other Provider Roof SHEETROCK APPLICATOR, KALI-Delmy Gillespie Attending Provider Dr. Bull York Other Provider Annie Field Attending Provider Unavailable Dr. Jonh Gracia Attending Provider Dr. Jonh Graica Other Provider Dr. Jonh Gracia Admit Provider Dr. Bull York Admit Provider Dr. Daryl Moy Attending Provider Dr. Daryl Moy Other Provider Dr. Sher Cuellar Other Provider Rogelio Claros DO Primary Care Provider [phone] Dr. Rogelio Claros DO Primary Care Provider [phone] Dr. Jonh Gracia MD Attending Provider Dr. Jonh Gracia MD Referring Provider [phone] Dr. Rogelio Claros DO Referring Provider Clovis Adkins Attending Provider Cyril, Greg Referring Unavailable Hyacinth, Rogelio Primary Care Unavailable Cyril, Greg Attending Unavailable Cyril, Greg Attending Unavailable Hyacinth, Rogelio Primary Care Unavailable Hyacinth, Rogelio Referring Unavailable Basil, Napoleon Referring Unavailable Hyacinth, Rogelio Primary Care Unavailable Basil, Napoleon Attending Unavailable Hyacinth, Rogelio Primary Care Unavailable Cyril, Greg Attending Unavailable Basil, Jonh Attending Unavailable Hyacinth, Rogelio Primary Care Unavailable Basil, Jonh Referring Unavailable Clovis Zazueta Attending Unavailable HyacinthRogelio damon Referring Unavailable Hyacinth, Rogelio Primary Care Unavailable Basil, Jonh Referring Unavailable Hyacinth, Rogelio Primary Care Unavailable Basil, Napoleon Attending Unavailable Cyril, Greg Referring Unavailable Hyacinth, Rogelio Primary Care Unavailable Cyril, Greg Attending Unavailable Allergies Allergy Classification Reported Allergen(s) Allergy Type Date of Onset Reaction(s) Facility (8 sources) metFORMIN; Translations: [metformin] Drug Allergy 8 Nausea and vomiting (disorder) [facility] (1 source) amLODIPine Drug Allergy 5 Other [facility] (1 source) amLODIPine Drug Allergy 5 [facility] (1 source) metFORMIN Drug Allergy 5 [facility] Medications Current Medications Medication Drug Class(es) Dates Sig (Normalized) Sig (Original) ascorbic acid 500 mg extended release oral tablet (4 sources) Vitamin C Start: 04-10-2023 take 1 tablet by mouth once daily Ascorbic Acid (Vitamin C) (C-500) 500 mg tablet extended release Active 500 mg PO DAILY April 10, 2023 12:00am vitamin atorvastatin 20 mg oral tablet (13 sources) HMG-CoA Reductase Inhibitor Start: 01-12-2017 End: 03-18-2025 take 1 tablet by mouth once daily Atorvastatin 20 mg tablet Active 20 mg PO DAILY 90 3 March 18, 2025 2:35pm cholesterol Blood Glucose Test Machine (4 sources) Start: 09-08-2020 Blood Glucose Test Machine See Instructions, Dispense glucometer, #1, UAD daily to test blood sugar, # 1 EA, 0 Refill(s), [facility]: [facility], Diabetes mellitus, type 2, 186, cm, 09/08/20 16:50:00 EST, Height, 102.9, kg, 09/08/20 16:47:00 EST, Dosing Weight Start Date: 09/08/20 Status: Ordered carvedilol 25 mg oral tablet (17 sources) alpha-Adrenergic Travis, beta-Adrenergic Travis Start: 07-13-2023 End: 03-18-2025 take 2 tablets by mouth twice daily at mealtime Carvedilol 25 mg tablet Active 50 mg PO TWICE A DAY 180 3 March 18, 2025 2:35pm must administer with a meal/food Start: 07-13-2023 take 50 mg by mouth twice daily at mealtime Carvedilol Active 50 MG PO TWICE A DAY July 12, 2023 11:00pm must administer with a meal/food Start: 02-16-2022 End: 07-13-2023 take 1 tablet by mouth twice daily at mealtime Carvedilol 25 mg tablet Discontinued 25 mg PO TWICE A DAY 60 June 29, 2023 12:00am July 13, 2023 10:31am must administer with a meal/food Start: 10-25-2021 carvedilol 25 mg oral tablet Dose : 25 mg = 1 tab(s), Oral, BIDM, # 180 tab(s), 3 Refill(s), [facility]: [facility], Essential hypertension, 182, cm, 06/07/21 13:23:00 EDT, Height, kg, 06/07/21 13:23:00 EDT, Dosing Weight Start Date: 10/25/21 Status: Ordered Start: 01-01-2009 carvedilol celestine sphate(COREG CR 80 MG 24 HR CAP) Take one(1) tablet daily. 0 01/01/2009 Active Comment on above: Take one(1) tablet d aily. cholecalciferol 0.025 mg oral capsule (4 sources) Vitamin D Start: 04-10-20 23 take 1 capsule by mouth once daily Cholecalciferol (Vitamin D3) (Vitamin D3) 25 mcg (1,000 unit) capsule Active 25 ug PO DAILY April 10, 2023 12:00am vitamin CoQ10 300 mg oral capsule (3 sources) Start: 09-08-20 CoQ10 300 mg oral capsule Dose : 300 mg = 1 cap(s), Oral, qDay, # 100 cap(s), 0 Refill(s) Start Date: 09/08/20 Status: Ordered esomeprazole 40 mg delayed release oral capsule (11 sources) Proton Pump Inhibitor Start: 02-17-20 Esomeprazole Magnesium Active CAP PO February 16, 2022 12:00am Start: 01-01-2009 take 1 capsule by mo [facility] once daily Esomeprazole Magnesium 40 mg capsule,delayed release(DR/EC) Active 40 mg PO DAILY February 16, 2022 12:00am reflux Comment on above: Take one(1) capsule daily. esomeprazole 40 mg oral delayed release capsule (1 source) Start: 1 esomeprazole 40 mg oral delayed release capsule Dose : 40 mg = 1 cap(s), Oral, qDay, # 90 cap(s), 3 Refill(s), [facility]: [facility], 182, cm, 06/07/21 13:23:00 EDT, Height, kg, 06/07/21 13:23:00 EDT, Dosing Weight Start Date: 06/07/21 Status: Ordered furosemide 40 mg oral tablet (2 sources) Loop Diuretic Start: 5 End: 5 take 1 tablet by mouth once daily Furosemide 40 mg tablet Active 40 mg PO daily 90 3 March 18, 2025 2:36pm glipiZIDE 5 mg oral tablet (11 sources) Sulfonylurea Start: 3 GlipiZIDE XL 5 mg oral tablet, extended release Dose : 5 mg = 1 tab(s), Oral, qDay, # 90 tab(s), 3 Refill(s), [facility]: [id number], Diabetes mellitus, type 2, 180.5, cm, 01/03/23 14:54:00 EDT, Height, kg, 01/03/23 14:54:00 EDT, Dosing Weight Start Date: 01/03/23 Status: Ordered Start: 02-16-2022 take 1 tablet by [facility] once daily Glipizide 5 mg tablet extended release 24hr Active 5 mg PO DAILY February 16, 2022 12:00am diabetes Start: 12-06-2021 GlipiZIDE XL 5 mg oral tablet, extended release Dose : 5 mg = 1 tab(s), Oral, qDay, # 90 tab(s), 3 Refill(s), [facility]: [facility], Diabetes mellitus, type 2, 180, cm, 12/06/21 13:06:00 EDT, Height, kg, 12/06/21 13:06:00 EDT, Dosing Weight Start Date: 12/06/21 Status: Ordered linseed oil 1000 mg oral capsule (4 sources) Start: 05-18-2023 take 1 capsule by mouth once daily Flaxseed Oil 1,000 mg capsule Active 1000 mg PO DAILY May 18, 2023 12:00am supplement administer with a meal Magnesium Glycinate-Mag Oxide (3 sources) Start: 05-18-2023 take 360 mg by mouth once daily Magnesium Glycinate-Mag Oxide Active 360 MG PO DAILY May 17, 2023 11:00pm Start: 05-18-2023 take 360 mg by mouth once daily Magnesium Glycinate-Mag Oxide Active 360 MG PO DAILY May 18, 2023 12:00am Magnesium Glycinate-Mag Oxide 120 mg magnesium capsule (1 source) Start: 05-18-2023 Magnesium Glyc inate-Mag Oxide 120 mg magnesium capsule Active 360 mg PO DAILY May 18, 2023 12:00am supplement mecobalamin 1 mg chewable tablet (4 sources) Start: 05-18-2023 take 1 tablet by mouth once daily Mecobalamin (Vitamin B12) 1,000 mcg tablet,chewable Active 1000 ug PO DAILY May 18, 2023 12:00am vitamin [employer] [place]-3 1050 mg oral capsule (4 sources) Start: 09-08-2020 [employer] [place]-3 1050 m g oral capsule Dose : 1,050 mg = 1 cap(s), Oral, qDay, # 90 cap(s), 0 Refill(s) Start Date: 09/08/20 Status: Ordered [employer] [place]-[employer] Fatty Acids (Super [employer] [place]-3) 1,000 mg capsule (4 sources) Start: 05-11-2023 take 3 capsules by mouth once daily [employer]-[employer] Fatty Acids (Super [employer] [place]-3) 1,000 mg capsule Active 1000 mg PO DAILY May 11, 2023 12:00am supplement Start: 05-11-2023 take 3 capsules by m outh once daily [employer]-[employer] Fatty Acids (Super [employer]-3) 1,000 mg capsule Active 1000 MG PO DAILY May 10, 2023 11:00pm Start: 05-11-2023 take 3 capsules by m outh once daily [employer]-[employer] Fatty Acids (Super [employer] [place]-3) 1,000 mg capsule Active 1000 MG PO DAILY May 11, 2023 12:00am pioglitazone 30 mg oral tablet (11 sources) Peroxisome Proliferator Receptor alpha Agonist, Peroxisome Proliferator Receptor gamma Agonist, Thiazolidinedione Start: 02-16-2022 take 1 tablet by mouth once daily Pioglitazone 30 mg tablet Active 30 mg PO DAILY February 16, 2022 12:00am diabetes Start: 12-06-2021 pioglitazone 3 0 mg oral tablet Dose : 30 mg = 1 tab(s), Oral, Daily, # 90 tab(s), 3 Refill(s), [facility]: [facility] [address], Diabetes mellitus, type 2, 180, cm, 12/06/21 13:06:00 EDT, Height, kg, 12/06/21 13:06:00 EDT, Dosing Weight Start Date: 12/06/21 Status: Ordered potassium chloride 20 meq extended release oral tablet (20 sources) Start: 10-29-2024 End: 03-18-2025 take 2 tablets by mouth once daily Potassium Chloride 20 mEq tablet extended release Active 40 meq PO daily 180 3 March 18, 2025 2:36pm Start: 10-14-2024 End: 10-29-2024 take 1 tablet by mouth once daily Potassium Chloride 20 mEq tablet extended release Discontinued 20 meq PO daily 90 October 14, 2024 1:00am October 29, 2024 10:38am Start: 05-18-2023 End: 10-14-2024 take 1 capsule by mouth once daily Potassium Chloride 8 mEq capsule, extended release Discontinued 8 meq PO DAILY May 18, 2023 10:16am October 14, 2024 4:55pm supplement Start: 05-11-2023 End: 05-18-2023 take 2 capsules by mouth once daily Potassium Chloride 8 mEq capsule, extended release Discontinued 16 meq PO DAILY May 11, 2023 10:09am May 18, 2023 10:18am Start: 05-11-2023 End: 05-18-2023 take 16 mEq by mouth once daily Potassium Chloride Dis continued 16 MEQ PO DAILY May 11, 2023 9:09am May 18, 2023 9:18am Start: 01-03-2023 potassium chlo ride 8 mEq (600 mg) oral capsule, extended release Dose : 16 mEq = 2 cap(s), Oral, qDay, take with food., # 180 cap(s), 3 Refill(s), [facility]: [id number], Hypokalemia, 180.5, cm, 01/03/23 14:54:00 EDT, Height, kg, 01/03/23 14:54:00 EDT, Dosing Weight Start Date: 01/03/23 Status: Ordered Start: 02-16-2022 End: 05-11-2023 take 1 capsule by mouth once daily Potassium Chloride 8 mEq capsule, extended release Discontinued 8 meq PO DAILY February 16, 2022 12:00am May 11, 2023 10:10am Start: 10-25-2021 potassium chlo ride 8 mEq (600 mg) oral capsule, extended release Dose : 16 mEq = 2 cap(s), Oral, qDay, take with food., # 180 cap(s), 3 Refill(s), [facility]acy: [facility], Hypokalemia, 182, cm, 06/07/21 13:23:00 EDT, Height, kg, 06/07/21 13:23:00 EDT, Dosing Weight Start Date: 10/25/21 Status: Ordered PreserVision AREDS 2 oral capsule (6 sources) Start: 01-03-2023 take 1 capsule by mouth twice daily PreserVision AREDS 2 oral capsule Dose = 1 cap(s), Oral, BID, # 60 cap(s), 0 Refill(s) Start Date: 01/03/23 Status: Ordered Start: 07-05-2022 take 1 capsule by [facility] twice daily PreserVision AREDS 2 oral capsule Dose = 1 cap(s), Oral, BID, # 60 cap(s), 0 Refill(s) Start Date: 07/05/22 Status: Ordered tamsulosin hydrochloride 0.4 mg oral capsule (1 source) alpha-Adrenergic Travis Start: 03-19-2024 take 1 capsule by mouth once daily Tamsulosin 0.4 mg capsule Active 0.4 mg PO daily March 19, 2024 12:00am ubidecarenone 100 mg oral capsule (13 sources) Start: 05-18-2023 Coenzyme Q10 (Co Q-10) 100 mg capsule Active 100 mg PO DAILY May 18, 2023 10:16am supplement Start: 05-11-2023 End: 05-18-2023 Coenzyme Q10 (Co Q-10) 100 m g capsule Discontinued 300 mg PO DAILY May 11, 2023 10:09am May 18, 2023 10:18am Start: 04-10-2023 End: 05-11-2023 Coenzyme Q10 (Co Q-10) 100 m g capsule Discontinued 100 mg PO DAILY April 10, 2023 12:00am May 11, 2023 10:10am Start: 09-08-2020 CoQ10 300 mg o ral capsule Dose : 300 mg = 1 cap(s), Oral, qDay, # 100 cap(s), 0 Refill(s) Start Date: 09/08/20 Status: Ordered valsartan 80 mg oral tablet (4 sources) Angiotensin 2 Receptor Travis Start: 03-18-2025 take 1 tablet by mouth once daily Valsartan 80 mg tablet Active 80 mg PO daily 90 3 March 18, 2025 12:00am Start: 06-29-2023 End: 10-14-2024 take 1 tablet by mouth once daily Valsartan 320 mg tablet Discontinued 320 mg PO DAILY 30 July 01, 2024 8:07am October 14, 2024 2:15pm vitamin b6 100 mg oral tablet (4 sources) Start: 05-18-2023 take 1 tablet by mouth once daily Pyridoxine (Vitamin B6) 100 mg tablet Active 100 mg PO DAILY May 18, 2023 12:00am vitamin Vitamin D3 (4 sources) Start: 09-08-2020 Vitamin D3 Dos e : 400 unit(s) = 1 tab(s), Oral, Daily, 0 Refill(s) Start Date: 09/08/20 Status: Ordered Vitamins A,C,R-Ijsq-Bgssbm (Preservision Areds) 4,296 mcg-226 mg-90 mg capsule (4 sources) Start: 04-10-2023 Vitamins A,C,D-Iwtm-Vtlilm (Preservision Areds) 4,296 mcg-226 mg-90 mg capsule Active 1 NMA PO TWICE A DAY April 10, 2023 12:00am vitamin Start: 04-10-2023 take 1 capsule by [facility] twice daily Vitamins A,C,E-Szwi-Figqld (Preservision Areds) 4,296 mcg-226 mg-90 mg capsule Active 1 CAP PO TWICE A DAY April 09, 2023 11:00pm Start: 04-10-2023 take 1 capsule by [facility] twice daily Vitamins A,C,E-Eqol-Wammsb (Preservision Areds) 4,296 mcg-226 mg-90 mg capsule Active 1 CAP PO TWICE A DAY April 10, 2023 12:00am Completed/Discontinued Medications Medication Drug Class(es) Dates Sig (Normalized) Sig (Original) acetaminophen 325 mg / oxyCODONE hydrochloride 5 mg oral tablet (4 sources) Opioid Agonist Start: 07-26-2023 End: 08-05-2023 Oxycodone-Acetaminoph en 5-325 mg tablet Discontinued 1 {tbl} PO EVERY 6 HOURS as needed for pain 40 10 0 July 26, 2023 August 04, 2023 1:00am August 05, 2023 1:31am Status post laminectomy Other specified postprocedural states Start: 07-26-2023 take 1 tablet by [facility] every six hours Oxycodone-Acetaminophen Active 1 TABLET PO EVERY 6 HOURS 40 10 July 26, 2023 amLODIPine 5 mg / valsartan 320 mg oral tablet (18 sources) Dihydropyridine Calcium Channel Travis, Angiotensin 2 Receptor Travis Start: 10-14-2024 End: 03-18-2025 Amlodipine-Valsartan 5-320 mg tablet Discontinued 1 {tbl} PO daily October 14, 2024 1:00am March 18, 2025 2:27pm Start: 10-18-2023 End: 10-18-2023 Amlodipine-Valsartan 5-320 m g tablet Discontinued 1 {tbl} PO DAILY October 18, 2023 1:00am October 18, 2023 4:04pm Start: 05-29-2023 End: 06-29-2023 Amlodipine-Valsartan 5-320 m g tablet Discontinued 1 {tbl} PO DAILY May 29, 2023 12:00am June 29, 2023 1:37pm blood pressure Start: 05-29-2023 End: 06-29-2023 take 1 tablet by mouth once daily Amlodipine-Valsartan Discontinued 1 TABLET PO DAILY May 28, 2023 11:00pm June 29, 2023 12:37pm Start: 02-16-2022 End: 05-18-2023 take 1 tablet by mouth once daily amlodipine-valsartan 5 mg-320 mg oral tablet Dose = 1 tab(s), Oral, Daily, # 90 tab(s), 3 Refill(s), [facility]: [id number], Essential hypertension, 180.5, cm, 01/03/23 14:54:00 EDT, Height, kg, 01/03/23 14:54:00 EDT, Dosing Weight Start Date: 01/03/23 Status: Ordered Start: 02-16-2022 End: 05-18-2023 take 1 tablet by mouth once daily Amlodipine-Valsartan Discontinued 1 TABLET PO DAILY February 15, 2022 11:00pm May 18, 2023 10:04am Start: 12-06-2021 take 1 tablet by memo th once daily amlodipine-valsartan 5 mg-320 mg oral tablet Dose = 1 tab(s), Oral, Daily, # 90 tab(s), 3 Refill(s), [facility]acy: [facility], Essential hypertension, 180, cm, 12/06/21 13:06:00 EDT, Height, kg, 12/06/21 13:06:00 EDT, Dosing Weight Start Date: 12/06/21 Status: Ordered Start: 01-01-2009 amlodipine/tabatha sartan(EXFORGE 10 MG-320 MG TAB) Take one(1) tablet daily. 0 01/01/2009 Active Comment on above: Take one(1) tablet d aily. Calcium Carbonate / vitamin D3 (1 source) CALCIUM CARBONAT E/VITAMIN D3 (VITAMIN D-3 ORAL) Take by mouth. 0 Active Comment on above: Take by mouth. hydroCHLOROthiazide 25 mg oral tablet (12 sources) Thiazide Diuretic Start: 009 End: 025 take 1 tablet by mouth once daily Hydrochlorothiazide 25 mg tablet Discontinued 25 mg PO DAILY February 16, 2022 12:00am October 14, 2024 4:54pm diuretic Comment on above: Take one(1) tablet d ailnelson. Mrnoy-LH4-ATO-NOJ-ZI0-Ifl- Astx 1000-130(40-80) mg cap (1 source) Zsonm-UP4-POC-EP A-OM6-Lip -Astx 1000-130(40-80) mg cap Take by mouth. 0 Active Comment on above: Take by mouth. MULTIVITAMINS WITH FLUORIDE (MULTI VIT-FLUORIDE ORAL) (1 source) MULTIVITAMINS WI TH FLUORIDE (MULTI VIT-FLUORIDE ORAL) Take by mouth. 0 Active Comment on above: Take by mouth. ubiquinol (1 source) COQ10, UBIQUINOL , ORAL Take by mouth. 0 Active Comment on above: Take by mouth. vitamin b12 5 mg sublingual tablet (1 source) Vitamin B12 cyanocobalamin, vitamin B-12, 5,000 mcg subl Dissolve under the tongue. 0 Active Comment on above: Dissolve under the t ongue. Problems Active Problems Problem Classification Problem Date Documented Date Episodic/Chronic Cardiac dysrhythmias (20 sources) Cardiac arrhythmia; Translations: [Cardiac arrhythmia, unspecified] Onset: 10-14-2024 05-11-2023 Chronic Comment on above: Per Holter 05/2023; Conditions associated with dizziness or vertigo (1 source) Peripheral vertigo 12-06-2021 Episodic Conduction disorders (15 sources) Accelerated idioventricular rhythm; Translations: [Atrioventricular block, complete] Onset: 10-14-2024 06-08-2023 Chronic Comment on above: Per Holter in 05/2023 ; Quinn DPPM implante d 06/19/23 @ [facility] Diabetes mellitus without complication (16 sources) Type 2 diabetes mellitus without complications; Translations: [Type 2 diabetes mellitus] Onset: 11-28-2018 09-08-2020 Chronic Disorders of lipid metabolism (18 sources) Hyperlipidemia; Translations: [Hyperlipidemia, unspecified] Onset: 11-21-2024 09-08-2020 Chronic Diverticulosis and diverticulitis (1 source) Diverticulosis of colon; Translations: [Diverticulosis of large intestine without perforation or abscess without bleeding] Onset: 01-16-2009 01-16-2009 Chronic Esophageal disorders (4 sources) Gastroesophageal reflux disease; Translations: [Gastro-esophageal reflux disease without esophagitis] Onset: 08-07-2012 07-05-2022 Chronic Essential hypertension (11 sources) Essential (primary) hypertension; Translations: [Essential hypertension] Onset: 11-28-2018 08-26-2020 Chronic Fluid and electrolyte disorders (2 sources) Hypokalemia; Translations: [Hypokalemia] 06-07-2021 Episodic Comment on above: ON POTASSIUM Genitourinary symptoms and ill-defined conditions (5 sources) Retention of urine, unspecified; Translations: [Proteinuria] Onset: 11-28-2018 01-10-2023 Episodic Osteoarthritis (1 source) Unilateral primary osteoarthritis, right knee; Translations: [Unilateral primary osteoarthritis, right knee] Onset: 11-28-2018 Chronic Other aftercare (1 source) Drug monitoring done; Translations: [Encounter for therapeutic drug level monitoring] Episodic Other aftercare (1 source) Long-term current use of drug therapy; Translations: [Other predatory animal exterminator (current) drug therapy] Episodic Other non-traumatic joint disorders (2 sources) Pain in right knee; Translations: [Pain in right knee] Onset: 11-28-2018 Episodic Other non-traumatic joint disorders (2 sources) Ankle edema; Translations: [Effusion, right ankle] 06-29-2023 Episodic Other nutritional; endocrine; and metabolic disorders (1 source) Obesity, unspecified; Translations: [Obesity, unspecified] Onset: 11-28-2018 Chronic Other nutritional; endocrine; and metabolic disorders (1 source) Body mass index (BMI) 30.0-30.9, adult; Translations: [Body mass index (BMI) 30.0-30.9, adult] Onset: 11-28-2018 Chronic Other screening for suspected conditions (not mental disorders or infectious disease) (8 sources) Raised prostate specific antigen; Translations: [Elevated prostate specific antigen [PSA]] Episodic Other skin disorders (1 source) Cafe au lait spots; Translations: [Cafe au lait spots] 09-04-2023 Episodic Residual codes; unclassified (1 source) Obstructive sleep apnea (adult) (pediatric); Translations: [Obstructive sleep apnea (adult) (pediatric)] Onset: 11-28-2018 Chronic Residual codes; unclassified (3 sources) H/O Spinal surgery; Translations: [Other specified postprocedural states] 07-25-2023 Episodic Residual codes; unclassified (1 source) Other specified postprocedural states; Translations: [Other postprocedural status] 07-26-2023 Episodic Spondylosis; intervertebral disc disorders; other back problems (4 sources) Degeneration of lumbar intervertebral disc 06-07-2021 Chronic Spondylosis; intervertebral disc disorders; other back problems (20 sources) Spasm of back muscles; Translations: [Low back pain] 12-08-2020 Episodic Unclassified (4 sources) Patient encounter status 09-08-2020 Past or Other Problems Problem Classification Problem Date Documented Da te Episodic/Chronic Other and unspecified benign neoplasm (1 source) History of polyp of colon; Translations: [Personal history of colonic polyps] Onset: 01-01-2009 01-01-2009 Episodic Other non-traumatic joint disorders (2 sources) Effusion, right ankle; Translations: [Effusion of joint, ankle and foot] Onset: 10-14-2024 06-29-2023 Episodic Other non-traumatic joint disorders (1 source) Effusion, left ankle; Translations: [Effusion, left ankle] Onset: 10-14-2024 Episodic Varicose veins of lower extremity (1 source) Venous varices; Translations: [Varicose veins of unspecified lower extremity with pain] Onset: 01-12-2016 01-12-2016 Episodic Results Test Name Value Interpretation Reference Range Facility Cardiology Visit Reporton Cardiology Visit Report [facility] [address] [place] [address] OFFICE VISIT Date of Service: 03/18/25 MR#: [id number] Acct: [id number] Name: LOIDA DONG Rep #: [id number] 32 : 1940 Provider: ABHAY Land Age/Sex: 84/M Location: [facility] Status: Signed HPI HPI History of Present Illness Details: Loida Dong is an 84-year-old male who presents to the office today for follow-up for monitoring his cardiovascular health. He has a history of sick sinus syndrome status post permanent pacemaker placement, hypertension and dyslipidemia. Echocardiogram 10/28/2024 demonstrates a preserved ejection fraction of 65%, mild concentric LVH, mild valve disease. His pacemaker report 12/27/24 demonstrates presenting rhythm as FAISAL/VPVS with PVC, 0 atrial high rate episodes detected, 0 high ventricular rate episodes detected 8 years and 1 month battery life remaining. Upon presentation today, he reports noticing SOB with bending over forward. This has been occurring for months. He feels he is also becoming tired quick but feels this is chronic/been going on for quite some time now. He notices some dizziness with certain movements. Further ROS below. Intake Vital Signs 10/14/24 08:42 03/18/25 13:58 03/18/25 14:01 Height 6 ft 1 in 6 ft 1 in 6 ft 1 in Weight: 220 lb BMI 29.0 BP 143/90 H 142/70 H Blood Pressure Location Lt brachial Rt brachial Position Sitting Sitting Respiration 18 Pulse 67 Pulse Source Monitor Pulse Oximetry (%) 98 Intake Visit Reasons: 6 M Medical Device Assembler Required: No Is patient in pain?: No Allergies amlodipine Adverse Reaction (Intermediate, Verified 10/14/24 13:11) Other metformin Adverse Reaction (Intermediate, Verified 10/14/24 13:11) Nausea/Vom/Diarrhea Medications ???Medication ???Instructions ???Recorded ???Confirmed ???Type esomeprazole magnesium 40 mg 40 mg PO DAILY reflux 02/16/2210/12 History capsule,delayed release glipizide 5 mg tablet, extended 5 mg PO DAILY diabetes 02/16/22 History release 24 hr pioglitazone 30 mg tablet 30 mg PO DAILY diabetes 02/16/22 0 03/18/25 History ascorbic acid (vitamin C) 500 mg 500 mg PO DAILY vitamin 04/10/23 0 03/18/25 History tablet,extended release (C-500) cholecalciferol (vitamin D3) 25 25 mcg PO DAILY vitamin 04/10/23 0 03/18/25 History mcg (1,000 unit) capsule (Vitamin D3) vitamins A,C,Q-xweg-djxuue 4,296 1 cap PO BID vitamin 04/10/2310/12 History mcg-226 mg-90 mg capsule (PreserVision AREDS) omega-3 fatty acids 1,000 mg 1,000 mg PO DAILY supplement 05/1103/18/25 History capsule (Super [place]-3) coenzyme Q10 100 mg capsule (Co 100 mg PO DAILY supplement 3 03/18/25 History Q-10) flaxseed oil 1,000 mg capsule 1,000 mg PO DAILY supplement 05/1803/18/25 History magnesium glycinate-mag oxide 360 mg PO DAILY supplement 3 03/18/25 History mecobalamin (vitamin B12) 1,000 1,000 mcg PO DAILY vitamin 3 03/18/25 History mcg chewable tablet pyridoxine (vitamin B6) 100 mg 100 mg PO DAILY vitamin 05/18/23 0 03/18/25 History tablet tamsulosin 0.4 mg capsule 0.4 mg PO QDAY 03/19/24 03/18/25 H istory atorvastatin 20 mg tablet 20 mg PO DAILY cholesterol #90 tab s 03/18/25 03/18/25 Rx carvedilol 25 mg tablet 50 mg (2 x 25 mg) PO BID #180 tabs 03/18/25 03/18/25 Rx furosemide 40 mg tablet 40 mg PO QDAY #90 tabs 03/18/25 Rx potassium chloride 20 mEq 40 meq (2 x 20 mEq) PO QDAY #180 0 03/18/25 03/18/25 Rx tablet,extended release tabs valsartan 80 mg tablet 80 mg PO QDAY #90 tabs 03/18/25 Rx Have you fallen in the past year?: No PFSH Medical History Spot, [id number] History of echocardiogram Ankle edema, bilateral Pacemaker Sick sinus syndrome Accelerated idioventricular rhythm Cardiology follow-up encounter Dyslipidemia PVCs (premature ventricular contractions) Abnormal EKG Preop cardiovascular exam Muscle spasm of back Benign positional vertigo Hypokalemia Hyperlipidemia Essential hypertension Elevated PSA DDD (degenerative disc disease), lumbar Cardiac arrhythmia Wears glasses Diabetes Arthritis High cholesterol Back pain Gastric reflux Former smoker Sleep apnea Shortness of breath on exertion History of pain when walking History of edema History of stress test Hypertension Spinal stenosis at L4-L5 level Low back pain Surgical History History of back surgery S/P laminectomy Status post laminectomy History of ankle surgery History of laparoscopic cholecystectomy Hx of hemorrhoidectomy History of total bilateral knee replacement (more content not included)... Normal [facility] Basic Metabolic Profile (BMP )on 11-11-2024 BUN/CRE 34.0 RATIO High 10-20 [facility] Comment on above: Performed By: #### L 500.2500 #### [facility] [address] [place], [address] CA,Total 9.4 mg/dL Normal 8.5-10.1 [facility] Comment on above: Performed By: #### L 500.2500 #### [facility] [address] [place], [address] Chloride [Moles/Vol] 105 mmol/L Normal 98-107 [facility] Comment on above: Performed By: #### L 500.2500 #### [facility] [address] [place], [address] CO2 [Moles/Vol] 31.0 mmol/L Normal 21.0-32.0 [facility] Comment on above: Performed By: #### L 500.2500 #### [facility] [address] [place], [address] Creatinine [Mass/Vol] 0.59 mg/dL Low 0.70-1.30 [facility] Comment on above: Result Comment: The validity of the calculated GFR GFRAA in patients over 70 years has not been determined. Clinical correlation is essential. Performed By: #### L 500.2500 #### [facility] [address] [place], [address] EST GFR - AA 169 mL/min Normal >60 [facility] Comment on above: Result Comment: Afri can Haitian GFR Calc Performed By: #### L 500.2500 #### [facility] [address] [place], [address] GAP 3 Low 5-15 [facility] Comment on above: Performed By: #### L 500.2500 #### [facility] [address] [place], [address] GFR/1.73 sq M.predicted among non-blacks MDRD (S/P/Bld) [Vol rate/Area] 140 mL/min/{1.73_m2} Normal >60 [facility] Comment on above: Result Comment: Non- GFR Calc Performed By: #### L 500.2500 #### [facility] [address] [place], [address] Glucose [Mass/Vol] 153 mg/dL High 74-106 [facility] Comment on above: Result Comment: Fast ing Glucose result greater than or equal to 126 mg/dL suggests DIABETES MELLITUS per A.D.A. criteria. Performed By: #### L 500.2500 #### [facility] [address] [place], [address] Potassium [Moles/Vol] 4.0 mmol/L Normal 3.5-5.1 [facility] Comment on above: Performed By: #### L 500.2500 #### [facility] [address] [place], [address] Sodium [Moles/Vol] 139 mmol/L Normal 136-145 [facility] Comment on above: Performed By: #### L 500.2500 #### [facility] [address] [place], [address] Urea nitrogen [Mass/Vol] 20 mg/dL High 7-18 [facility] Comment on above: Performed By: #### L 500.2500 #### [facility] [address] [place], [address] Lipid Profileon 11-11-2024 Cholesterol [Mass/Vol] 96 mg/dL Normal 200 [facility] Comment on above: Result Comment: <200 mg/dL Desirable 200-240 mg/dL Borderline >240 mg/dL High Risk Performed By: #### L 500.4100, L502.0250 #### [facility] [address] [place], [address] Cholesterol in HDL [Mass/Vol] 58 mg/dL Normal [facility] Comment on above: Result Comment: The drugs N-Acetylcysteine and Metamizole may falsely depress this assay. Reference Range HDL <40 mg/dL Low HDL Cholesterol HDL >or= 60 mg/dL High HDL Cholesterol Performed By: #### L 500.4100, L502.0250 #### [facility] [address] [place], [address] Cholesterol in LDL [Mass/Vol] 25 mg/dL Normal 0-130 [facility] Comment on above: Performed By: #### L 500.4100, L502.0250 #### [facility] [address] [place], [address] Cholesterol in VLDL [Mass/Vol] 13 mg/dL Normal 5-40 [facility] Comment on above: Performed By: #### L 500.4100, L502.0250 #### [facility] [address] [place], [address] Triglyceride [Mass/Vol] 63 mg/dL Normal [facility] Comment on above: Result Comment: The drugs N-Acetylcysteine and Metamizole may falsely depress this assay. Serum Triglycerides Reference Interval Normal <150 mg/dL Borderline high 150 - 199 mg/dL High 200 - 499 mg/dL Very High > or = 500 mg/dL Performed By: #### L 500.4100, L502.0250 #### [facility] [address] [place], [address] Microalb:Creat Ratio,Random URon 11-11-2024 MALB:CRE TNP Normal <30 mg/g CRE [facility] Comment on above: Performed By: #### L 500.4100, L502.0250 #### [facility] [address] [place], [address] MICROALBUMIN,UR 15.5 mg/L Normal NO RANGE EST. [facility] Comment on above: Performed By: #### L 500.4100, L502.0250 #### [facility] [address] [place], [address] UR CREAT < 13.00 Normal NO RANGE EST. [facility] Comment on above: Performed By: #### L 500.4100, L502.0250 #### [facility] [address] [place], [address] Basic Metabolic Profile (BMP )on 10-28-2024 BUN/CRE 36.1 RATIO High 10- [facility] Comment on above: Performed By: #### L 500.2500 #### [facility] [address] [place], [address] CA,Total 9.0 mg/dL Normal 8.5-10.1 [facility] Comment on above: Performed By: #### L 500.2500 #### [facility] [address] [place], [address] Chloride [Moles/Vol] 105 mmol/L Normal 98-107 [facility] Comment on above: Performed By: #### L 500.2500 #### [facility] [address] [place], [address] CO2 [Moles/Vol] 30.0 mmol/L Normal 21.0-32.0 [facility] Comment on above: Performed By: #### L 500.2500 #### [facility] [address] [place], [address] Creatinine [Mass/Vol] 0.61 mg/dL Low 0.70-1.30 [facility] Comment on above: Result Comment: The validity of the calculated GFR GFRAA in patients over 70 years has not been determined. Clinical correlation is essential. Performed By: #### L 500.2500 #### [facility] [address] [place], [address] EST GFR - AA 162 mL/min Normal >60 [facility] Comment on above: Result Comment: Afri can Haitian GFR Calc Performed By: #### L 500.2500 #### [facility] [address] [place], [address] GAP 6 Normal 5-15 [facility] Comment on above: Performed By: #### L 500.2500 #### [facility] [address] [place], [address] GFR/1.73 sq M.predicted among non-blacks MDRD (S/P/Bld) [Vol rate/Area] 134 mL/min/{1.73_m2} Normal >60 [facility] Comment on above: Result Comment: Non- GFR Calc Performed By: #### L 500.2500 #### [facility] [address] [place], [address] Glucose [Mass/Vol] 127 mg/dL High 74-106 [facility] Comment on above: Result Comment: Fast ing Glucose result greater than or equal to 126 mg/dL suggests DIABETES MELLITUS per A.D.A. criteria. Performed By: #### L 500.2500 #### [facility] [address] [place], [address] Potassium [Moles/Vol] 3.4 mmol/L Low 3.5-5.1 [facility] Comment on above: Performed By: #### L 500.2500 #### [facility] [address] [place], [address] Sodium [Moles/Vol] 141 mmol/L Normal 136-145 [facility] Comment on above: Performed By: #### L 500.2500 #### [facility] [address] [place], [address] Urea nitrogen [Mass/Vol] 22 mg/dL High 7-18 [facility] Comment on above: Performed By: #### L 500.2500 #### [facility] [address] [place], [address] Echo Completeon 10-28-2024 Echo Complete [facility] [address] [place] [address] Echo Complete 10/28/24 1359 MR#: [id number] Acct: [id number] Name: LOIDA DONG Rep #: [id number] : 1940 84 From: Greg Nam MD Attending Dr: Dr. Greg Nam MD Status: REG CLI Ordering Dr: Greg Nam MD Date: 10/28/24 Location: [facility] Sex: M C Admitted: Reason For Study Reason For Study: ARRHYTHMIA Procedure This was a 2D Doppler, Color Flow transthoracic echocardiogram. Exam performed in department. Left Ventricle Normal LV size. Mild concentric left ventricular hypertrophy. The left ventricular ejection fraction is 65 %. Stage 1 diastolic dysfunction. Right Ventricle Normal right ventricle. Atria The left and right atria are normal. Mitral Valve Mild (1+) mitral valve insufficiency. Tricuspid Valve Trivial tricuspid valve insufficiency. Unable to estimate RV systolic pressure due to insufficient tricuspid regurgitant envelope. Aortic Valve Trisinus/trileaflet aortic valve. Mild (1+) aortic valve insufficiency. Pulmonic Valve The pulmonic valve is not well visualized. Great Vessels Mildly dilated aortic root. Pericardium/Pleural No pericardial effusion. MMode/2D Measurements Calculations LVIDd: 4.5 cm IVSd: 1.2 cm LVOT diam: 2.2 cm LVIDs: 2.9 cm LVPWd: 1.0 cm LVOT area: 3.8 cm2 RVDd: 4.8 cm FS: 35.3 % _ asc Aorta Diam: 3.8 cm LAV(MOD-bp): 50.1 ml LVAd ap4: 31.4 cm2 LAV(MOD-bp) Indexed: 21.6 ml/m2 LVLd ap4: 9.5 cm LAV(MOD-sp2): 58.3 ml EDV(MOD-sp4): 83.0 ml LAV(MOD-sp4): 35.4 ml EDV(sp4-el): 88.4 ml LVAs ap4: 19.0 cm2 LVLs ap4: 8.5 cm ESV(MOD-sp4): 36.5 ml ESV(sp4-el): 36.2 ml EF(MOD-sp4): 56.0 % EF(sp4-el): 59.1 % _ LVAd ap2: 30.4 cm2 SV(MOD-sp4): 46.5 ml SV(MOD-sp2): 44.8 ml LVLd ap2: 9.9 cm SI(MOD-sp4): 20.1 ml/m2 SI(MOD-sp2): 19.4 ml/m2 EDV(MOD-sp2): 78.9 ml EDV(sp2-el): 78.9 ml LVAs ap2: 18.2 cm2 LVLs ap2: 8.3 cm ESV(MOD-sp2): 34.1 ml ESV(sp2-el): 33.8 ml EF(MOD-sp2): 56.8 % _ SV(sp4-el): 52.2 ml Ao sinus diam: 3.[address] Junction: 3.1 cm _ LA dimension(2D): 3.5 cm LA A4 area: 15.0 cm2 RA A4 area: 17.6 cm2 _ TAPSE: 2.4 cm Time Measurements MV dec time: 0.25 sec Doppler Measurements Calculations MV E max royal: 49.8 cm/sec Lat Peak E' Royal: 8.5 cm/sec Med Peak E' Royal: 7.4 cm/sec MV A max royal: 62.3 cm/sec E/E' lat: 5.9 E/E' med: 6.8 MV E/A: 0.80 _ MV dec slope: 198.2 cm/sec2 Ao V2 max: 94.9 cm/sec LV V1 max: 83.5 cm/sec Ao max P.6 mmHg LV V1 max P.8 mmHg Ao V2 mean: 69.4 cm/sec LV V1 mean P.7 mmHg Ao mean P.1 mmHg LV V1 mean: 63.6 cm/sec Ao V2 VTI: 20.8 cm LV V1 VTI: 18.7 cm AV (velocity ratio): 0.90 JIMENEZ(I,D): 3.4 cm2 JIMENEZ(V,D): 3.4 cm2 _ SV(LVOT): 71.6 ml PA V2 max: 102.7 cm/sec ECHO/Echo Complete Interpretation Summary Mild concentric left ventricular hypertrophy. The left ventricular ejection fraction is 65 %. Stage 1 diastolic dysfunction. Mild (1+) mitral valve insufficiency. Mild (1+) aortic valve insufficiency. Mildly dilated aortic root. Ordering Physician: Greg Nam Referring Physician: MD Rogelio Claros Performed By: Lucina Carmichael [facility] 10/30/24 1247 Date Greg Nam MD CC: Dr. Greg Nam MD; Dr. Rogelio Claros DO Date Dictated: 10/28/24 1359 Date Transcribed: 10/30/24 1247 [facility] Specialist: Signed Normal [facility] Cardiology Visit Reporton Cardiology Visit Report [facility] [address] [place] [address] OFFICE VISIT Date of Service: 10/14/24 MR#: [id number] Acct: [id number] Name: LOIDA DONG Rep #: [id number] : 1940 Provider: Dr. Greg Nam MD Age/Sex: 84/M Location: [facility] Status: Signed HPI HPI History of Present Illness Details: This gentleman with past medical history significant for sick sinus syndrome status post permanent pacemaker placement, hypertension and dyslipidemia is here for follow-up visit. Denies any chest pains or shortness of breath. No orthopnea. No PND. No palpitations. Lately has been complaining of some lower extremity edema. Per him, he may have increase his salt intake recently. Intake Vital Signs 03/19/24 13:10 10/14/24 08:42 Height 6 ft 1 in 6 ft 1 in Weight: 238 lb BMI 31.4 BP 134/82 H Blood Pressure Location Lt brachial Position Sitting Respiration 16 Pulse 63 Pulse Source NIBP Intake Visit Reasons: 6 M FU Medical Device Assembler Required: No Accompanied by: Self Is patient in pain?: No Allergies amlodipine Adverse Reaction (Intermediate, Verified 10/14/24 13:11) Other metformin Adverse Reaction (Intermediate, Verified 10/14/24 13:11) Nausea/Vom/Diarrhea Medications ???Medication ???Instructions ???Recorded ???Confirmed ???Type atorvastatin 20 mg tablet 20 mg PO DAILY cholesterol 02/16/22 10/14/24 History esomeprazole magnesium 40 mg 40 mg PO DAILY reflux 02/16/22 10/14/24 History capsule,delayed release glipizide 5 mg tablet, extended 5 mg PO DAILY diabetes 02/16/22 10/14/24 History release 24 hr hydrochlorothiazide 25 mg tablet 25 mg PO DAILY diuretic 02/16/22 10/14/24 History pioglitazone 30 mg tablet 30 mg PO DAILY diabetes 02/16/22 10/14/24 History ascorbic acid (vitamin C) 500 mg 500 mg PO DAILY vitamin 04/10/23 10/14/24 History tablet,extended release (C-500) cholecalciferol (vitamin D3) 25 25 mcg PO DAILY vitamin 04/10/23 03/19/24 History mcg (1,000 unit) capsule (Vitamin D3) vitamins A,C,Q-mvpd-hpvzpn 4,296 1 cap PO BID vitamin 04/10/23 10/14/24 History mcg-226 mg-90 mg capsule (PreserVision AREDS) omega-3 fatty acids 1,000 mg 1,000 mg PO DAILY supplement 05/11/23 10/14/24 History capsule (Super [place]-3) coenzyme Q10 100 mg capsule (Co 100 mg PO DAILY supplement 05/18/23 03/19/24 History Q-10) flaxseed oil 1,000 mg capsule 1,000 mg PO DAILY supplement 05/18/23 03/19/24 History magnesium glycinate-mag oxide 360 mg PO DAILY supplement 05/18/23 10/14/24 History mecobalamin (vitamin B12) 1,000 1,000 mcg PO DAILY vitamin 05/18/23 10/14/24 History mcg chewable tablet potassium chloride 8 mEq 8 meq PO DAILY supplement 05/18/23 10/14/24 History capsule,extended release pyridoxine (vitamin B6) 100 mg 100 mg PO DAILY vitamin 05/18/23 10/14/24 History tablet carvedilol 25 mg tablet 50 mg PO BID 07/13/23 10/14/24 History tamsulosin 0.4 mg capsule 0.4 mg PO QDAY 03/19/24 10/14/24 History amlodipine 5 mg-valsartan 320 mg 1 tab PO QDAY 10/14/24 10/14/24 History tablet Ejection fraction %: 75 Have you fallen in the past year?: No PFSH Medical History Abnormal EKG Accelerated idioventricular rhythm Ankle edema, bilateral Arthritis Back pain Benign positional vertigo Cardiac arrhythmia Cardiology follow-up encounter DDD (degenerative disc disease), lumbar Diabetes Dyslipidemia Elevated PSA Essential hypertension Former smoker Gastric reflux High cholesterol History of echocardiogram History of edema History of pain when walking History of stress test Hyperlipidemia Hypertension Hypokalemia Low back pain Muscle spasm of back Pacemaker Preop cardiovascular exam PVCs (premature ventricular contractions) Shortness of breath on exertion Sick sinus syndrome Sleep apnea Spinal stenosis at L4-L5 level Spot, [id number] Wears glasses Surgical History History of ankle surgery History of back surgery History of laparoscopic cholecystectomy History of total bilateral knee replacement (TKR) Hx of hemorrhoidectomy S/P laminectomy Status post laminectomy Family History Brother Hypertension Atrial fibrillation Cancer prostate Father Cancer prostate Social History housing: house Smoking Status: Former smoker how long ago did patient quit smokin years ago alcohol intake: never substance use type: does not use caffeine: Yes Type: coffee Number of servings: 2 ROS Const Const: Negative for fatigue, weakness, headache(s) or weight gain ENT ENT: Negat (more content not included)... Normal [facility] Absolute lymphocyte countOrd ered By: Daryl Moy on 07-26-2023 Lymphocytes Auto (Unsp spec) [#/Vol] 0.95 10*3/uL 0.83-4.51 [facility] Basophil percentageOrdered B y: Daryl Moy on 07-26-2023 Basophils/100 WBC (Bld) 0.3 % 0-1 [facility] Chloride [Moles/Vol] 102 mmol/L 98-107 [facility] Eosinophils/100 WBC (Bld) 2.1 % 0-5 [facility] Glucose [Mass/Vol] 184 mg/dL 74-106 [facility] Comment on above: Fasting Glucose resu lt greater than or equal to 126 mg/dL suggests DIABETES MELLITUS per A.D.A. criteria. Neutrophils (Bld) [#/Vol] 5.2 10*3/uL 2.0-7.7 [facility] Neutrophils/100 WBC (Bld) 72.9 % 47-70 [facility] Potassium [Moles/Vol] 3.4 mmol/L 3.5-5.1 [facility] Sodium [Moles/Vol] 135 mmol/L 136-145 [facility] WBC (Bld) [#/Vol] 7.1 10*3/uL 4.4-11.0 [facility] Blood erythrocytes count (nu mber/volume)Ordered By: Daryl Moy on 07-26-2023 RBC (Bld) [#/Vol] 4.32 10*6/uL 4.6-6.2 [facility] Blood hemoglobin measurement (mass/volume)Ordered By: Daryl Moy on 07-26-2023 Hemoglobin (Bld) [Mass/Vol] 12.9 g/dL 13.0-16.5 [facility] Blood lymphocytes/100 leukoc ytesOrdered By: Daryl Moy on 07-26-2023 Lymphocytes/100 WBC (Bld) 13.3 % 19-41 [facility] Blood monocytes/100 leukocyt esOrdered By: Daryl Moy on 07-26-2023 Monocytes/100 WBC (Bld) 10.8 % 0-10 [facility] Blood platelet mean volumeOr dered By: Daryl Moy on 07-26-2023 Platelet mean volume (Bld) [Entitic vol] 10.3 fL 6.2-12.0 [facility] Determination of erythrocyte mean corpuscular volume (MCV)Ordered By: Daryl Moy on 07-26-2023 MCV (RBC) [Entitic vol] 90.7 fL 80-94 [facility] Glucose Glucometer (dC) [M ass/Vol]Ordered By: Bull York on 07-26-2023 Glucose [Mass/Vol] 168 mg/dL 74-106 [facility] Comment on above: MANAGEMENT OF PATIEN T CARE PER NURSING PROTOCOL Hematocrit Auto (Bld) [Volum e fraction]Ordered By: Daryl Moy on 07-26-2023 Hematocrit (Bld) [Volume fraction] 39.2 % 40-54 [facility] - Chemistry and C hemistry - challengeOrdered By: Daryl Moy on 07-26-2023 CO2 [Moles/Vol] 31.0 mmol/L 21.0-32.0 [facility] Urea nitrogen/Creatinine [Mass ratio] 29.2 mg/mg 10-20 [facility] - Hematology and Cell countsOrdered By: Daryl Moy on 07-26-2023 Erythrocyte distribution width (RBC) [Entitic vol] 43.8 fL 35.1-43.9 [facility] Erythrocyte distribution width (RBC) [Ratio] 13.2 % 11.6-14.6 [facility] Immature granulocytes/100 WBC (Bld) 0.600 % 0.0-0.9 [facility] Comment on above: IG% - Immature Granu locytes (promyelocytes, myelocytes and metamyelocytes) > 1% indicates that a LEFT SHIFT is Present. MCH (RBC) [Entitic mass] 29.9 pg 27.0-32.0 [facility] Nucleated RBC/100 WBC (Bld) [Ratio] 0 % 0-5 [facility] MCHC Auto (RBC) [Mass/Vol]Or dered By: Daryl Moy on 07-26-2023 MCHC (RBC) [Mass/Vol] 32.9 g/dL 32-36 [facility] No Panel InformationOrdered By: Daryl Moy on 07-26-2023 Estimated Creatinine Clearance Calc 64.36 ml/min [facility] Estimated GFR (MDRD) Amer 134 mL/min >60 [facility] Comment on above: GFR Calc Estimated GFR (MDRD) Non-Af Amer 111 mL/min >60 [facility] Comment on above: Non- GFR Calc Platelets bldOrdered By: Bobby Moy on 07-26-2023 Platelets (Bld) [#/Vol] 122 10*3/uL 150-450 [facility] Serum or plasma calcium eunice urement (mass/volume)Ordered By: Daryl Moy on 07-26-2023 Calcium [Mass/Vol] 8.6 mg/dL 8.5-10.1 [facility] Serum or plasma creatinine m easurement (mass/volume)Ordered By: Daryl Moy on 07-26-2023 Creatinine [Mass/Vol] 0.72 mg/dL 0.70-1.30 [facility] Comment on above: The validity of the calculated GFR & GFRAA in patients over 70 years has not been determined. Clinical correlation is essential. Serum or plasma urea nitroge n measurement (mass/volume)Ordered By: Daryl Moy on 07-26-2023 Urea nitrogen [Mass/Vol] 21 mg/dL 7-18 [facility] Thin prep Papanicolaou smear with manual screeningOrdered By: Daryl Moy on 07-26-2023 Thin prep Papanicolaou smear with manual screening 2 5-15 [facility] Basophil percentageOrdered B y: Red Means on 06-12-2023 Basophil percentage 0 SEEN /hpf 0-5 [facility] Chloride [Moles/Vol] 104 mmol/L 98-107 [facility] Glucose [Mass/Vol] 148 mg/dL 74-106 [facility] Comment on above: Fasting Glucose resu lt greater than or equal to 126 mg/dL suggests DIABETES MELLITUS per A.D.A. criteria. Potassium [Moles/Vol] 3.5 mmol/L 3.5-5.1 [facility] Sodium [Moles/Vol] 138 mmol/L 136-145 [facility] WBC (Bld) [#/Vol] 4.7 10*3/uL 4.4-11.0 [facility] Bilirubin Test strip Ql (U)O rdered By: Red Means on 06-12-2023 Bilirubin Ql (U) Negative Negative [facility] Blood erythrocytes count (nu mber/volume)Ordered By: Red Means on 06-12-2023 RBC (Bld) [#/Vol] 4.86 10*6/uL 4.6-6.2 [facility] Blood hemoglobin measurement (mass/volume)Ordered By: Red Means on 06-12-2023 Hemoglobin (Bld) [Mass/Vol] 14.4 g/dL 13.0-16.5 [facility] Blood platelet mean volumeOr dered By: Red Means on 06-12-2023 Platelet mean volume (Bld) [Entitic vol] 10.2 fL 6.2-12.0 [facility] Determination of erythrocyte mean corpuscular volume (MCV)Ordered By: Red Means on 06-12-2023 MCV (RBC) [Entitic vol] 87.9 fL 80-94 [facility] Hematocrit Auto (Bld) [Volum e fraction]Ordered By: Red Means on 06-12-2023 Hematocrit (Bld) [Volume fraction] 42.7 % 40-54 [facility] INR in Blood by Coagulation assayOrdered By: Red Means on 06-12-2023 INR Coag (Bld) [Relative time] 1.2 {INR} [facility] Ketones Test strip Ql (U)Ord ered By: Red Means on 06-12-2023 Ketones Ql (U) Negative Negative [facility] Laboratory - Chemistry and C hemistry - challengeOrdered By: Red Means on 06-12-2023 CO2 [Moles/Vol] 29.0 mmol/L 21.0-32.0 [facility] Urea nitrogen/Creatinine [Mass ratio] 27.3 mg/mg 10-20 [facility] Laboratory - CoagulationOrde red By: Red Means on 06-12-2023 PT Coag (PPP) [Time] 15.3 s 11.7-14.9 [facility] Laboratory - Hematology and Cell countsOrdered By: Red Means on 06-12-2023 Erythrocyte distribution width (RBC) [Entitic vol] 41.1 fL 35.1-43.9 [facility] Erythrocyte distribution width (RBC) [Ratio] 12.7 % 11.6-14.6 [facility] MCH (RBC) [Entitic mass] 29.6 pg 27.0-32.0 [facility] MCHC Auto (RBC) [Mass/Vol]Or dered By: Red Means on 06-12-2023 MCHC (RBC) [Mass/Vol] 33.7 g/dL 32-36 [facility] Mucus LM Ql (Urine sed)Order ed By: Red Means on 06-12-2023 Mucus Ql (Urine sed) 0 SEEN /hpf [facility] Nitrite Test strip Ql (U)Ord ered By: Red Means on 06-12-2023 Nitrite Ql (U) Negative Negative [facility] No Panel InformationOrdered By: Red Means on 06-12-2023 Estimated GFR (MDRD) Amer 170 mL/min >60 [facility] Comment on above: GFR Calc Estimated GFR (MDRD) Non-Af Amer 140 mL/min >60 [facility] Comment on above: Non- GFR Calc Platelets bldOrdered By: Jevon Means on 06-12-2023 Platelets (Bld) [#/Vol] 155 10*3/uL 150-450 [facility] Protein Test strip Ql (U)Ord ered By: Red Means on 06-12-2023 Protein Ql (U) 15 mg/dl Negative [facility] Serum or plasma calcium eunice urement (mass/volume)Ordered By: Red Means on 06-12-2023 Calcium [Mass/Vol] 9.0 mg/dL 8.5-10.1 [facility] Serum or plasma creatinine m easurement (mass/volume)Ordered By: Red Means on 06-12-2023 Creatinine [Mass/Vol] 0.59 mg/dL 0.70-1.30 [facility] Comment on above: The validity of the calculated GFR & GFRAA in patients over 70 years has not been determined. Clinical correlation is essential. Serum or plasma urea nitroge n measurement (mass/volume)Ordered By: Red Means on 06-12-2023 Urea nitrogen [Mass/Vol] 16 mg/dL 7-18 [facility] Squamous epithelial cells de tection in urine sediment by light microscopyOrdered By: Red Means on 06-12-2023 Epithelial cells.squamous LM Ql (Urine sed) 0 SEEN /hpf 0-5 [facility] Thin prep Papanicolaou smear with manual screeningOrdered By: Red Means on 06-12-2023 Thin prep Papanicolaou smear with manual screening 5 5-15 [facility] Urine blood detectionOrdered By: Red Means on 06-12-2023 RBC Ql (U) 10 /ul Negative [facility] RBC Ql (U) 0 SEEN /hpf 0-5 [facility] Urine clarityOrdered By: Jevon Means on 06-12-2023 Clarity (U) Clear Clear [facility] Urine color determinationOrd ered By: Red Means on 06-12-2023 Color (U) Yellow Yellow [facility] Urine glucose detectionOrder ed By: Red Means on 06-12-2023 Glucose Ql (U) Normal mg/dl Normal [facility] Urine leukocyte esterase det ection by dipstickOrdered By: Red Means on 06-12-2023 Leukocyte esterase Test strip Ql (U) Negative Negative [facility] Urine pHOrdered By: Red johnson on 06-12-2023 pH (U) 7.0 [pH] 5.0 - 8.0 [facility] Urine sediment bacteria coun t by microscopy (number/high power field)Ordered By: Red Means on 06-12-2023 Bacteria LM.HPF (Urine sed) [#/Area] 0 /[HPF] None Seen [facility] Urine specific gravity measu rementOrdered By: Red Means on 06-12-2023 Specific gravity (U) [Rel density] 1.010 1.002-1.030 [facility] Urobilinogen Auto test strip Ql (U)Ordered By: Red Means on 06-12-2023 Urobilinogen Ql (U) Normal mg/dl Normal [facility] Laboratory - Chemistry and C hemistry - challengeOrdered By: Amrik Crowder on 05-30-2023 Magnesium [Mass/Vol] 1.8 mg/dL 1.6-2.6 [facility] No Panel InformationOrdered By: Greg Nam on 05-18-2023 Thyroid Stimulating Hormone (TSH) 1.10 uIU/mL 0.358-3.74 [facility] HIV 1 and HIV-2 antibody ass ay with HIV-1 p24 antigen detectionOrdered By: Bull York on 04-18-2023 HIV 1+2 Ab+HIV1 p24 Ag IA Ql Non-Reactive Nonreactive [facility] No Panel InformationOrdered By: Bull York on 04-18-2023 Nasal Screen MRSA/MSSA [facility] Hepatitis A Antibody Total Negative Negative [facility] Comment on above: Performed at: [address] [id number] Director: Cole Alicea PhD, Phone: [phone] Hepatitis C Antibody Non-Reactive Nonreactive [facility] Comment on above: Non Reactive: < 0.8 Equivocal: >/= 0.8 to < 1.0 Reactive: >/= 1.0The CDC recommends that a reactive/equivocal HCV antibody result be followed up by the HCV Nucleic Acid Amplificationtest (824461) Nasal Screen MRSA/MSSA [facility] Serum hepatitis B virus surf luis alberto antibody IgG detectionOrdered By: Bull York on 04-18-2023 HBV surface IgG Ql (S) Non-Reactive [facility] Comment on above: Non Reactive: Incons istent with immunity less than <10 mIU/mL Reactive: Consistent with immunity greater than or equal to 10 mIU/mL Whole blood hemoglobin A1c/t otal hemoglobin ratio (mass fraction)Ordered By: Faraz Chaparro on 04-18-2023 HbA1c (Bld) [Mass fraction] 6.1 % 3.8-5.6 [facility] Comment on above: Normal < 5.7 % Predi abetic 5.7 - 6.4 % Diabetic >or= 6.5 % Please note range changes. Mitchell 04-14-2023 CNPN Telephone (ELYAWS) -------- LEAVERLOIDA ([id number]) 1940 M Date Time Provider Department 04/14/23 GERRY LEHMAN During your visit today, we recorded the following information about you: Mellisa Carter 04/14/2023 4:50 PM Signed Received referral from Nurse DX: MONOCLONAL PROTEIN REF PROV: BHAVNISH VERONICA INS: PRIMETIME Spoke to pt and he stated that he is getting back surgery. Pt requested that we reach out to him end of April to schedule Placed pt's referral in Ready to Schedule folder at [facility] desk Frida Villar 05/15/2023 3:15 PM Signed Spoke with patient and his surgery has been postponed and he would like to have us call him in mid-June to schedule. [facility] 2:49 PM Signed I called and spoke to Loida and he stated that he has not yet had his back surgery. He stated that he had to have a pace maker placed and has now got approved to have the back surgery but does not know when it will be yet. He stated he will call us back when he is ready to schedule this visit. Information placed in deferred patient folder at the desk. Margaret Aguilar [facility] Allergies As of Date: 04/14/2023 (No Known Allergies) Date Reviewed: 01/24/2017 Reviewed by: Marianna Savage (Rn), RN - Fully Assessed Reason for Visit: New Patient [172] Prescriptions as of 08/29/2023 - atorvastatin (LIPITOR) 20 mg tablet - MULTIVITAMINS WITH FLUORIDE (MULTI VIT-FLUORIDE ORAL) Take by mouth. - COQ10, UBIQUINOL, ORAL Take by mouth. - Ltvig-GY2-FKG-EPA-OM6-Li p-Astx 1000-130(40-80) mg cap Take by mouth. - CALCIUM CARBONATE/VITAMIN D3 (VITAMIN D-3 ORAL) Take by mouth. - cyanocobalamin, vitamin B-12, 5,000 mcg subl Dissolve under the tongue. - carvedilol phosphate(COREG CR 80 MG 24 HR CAP) Take one(1) tablet daily. - amlodipine/valsartan(EXF ORGE 10 MG-320 MG TAB) Take one(1) tablet daily. - HYDROCHLOROTHIAZIDE 25 MG TAB Take one(1) tablet daily. - esomeprazole mag trihydrate(NEXIUM 40 MG CAP) Take one(1) capsule daily. Problem List As Of Date 04/14/2023 Noted Resolved PERSONAL HISTORY OF COLONIC POLYPS [Z86.010] 01/01/2009 DIVERTICULOSIS COLON - NO HEMORRHAGE [K57.30] 01/16/2009 Gastroesophageal reflux disease [K21.9] 08/07/2012 Varicose veins with pain [I83.819] 01/12/2016 Encounter Status:Closed by MELLISA MAR on 08/29/23 Normal [facility] Absolute lymphocyte countOrd ered By: Charles Martin on 04-05-2023 Lymphocytes Auto (Unsp spec) [#/Vol] 1.61 10*3/uL 0.83-4.51 [facility] Basophil percentageOrdered B y: Charles Martin on 04-05-2023 Basophils/100 WBC (Bld) 0.4 % 0-1 [facility] Chloride [Moles/Vol] 104 mmol/L 98-107 [facility] Eosin[facility]/100 WBC (Bld) 1.3 % 0-5 [facility] Glucose [Mass/Vol] 144 mg/dL 74-106 [facility] Comment on above: Fasting Glucose resu lt greater than or equal to 126 mg/dL suggests DIABETES MELLITUS per A.D.A. criteria. Neutrophils (Bld) [#/Vol] 2.3 10*3/uL 2.0-7.7 [facility] Neutrophils/100 WBC (Bld) 52.2 % 47-70 [facility] Potassium [Moles/Vol] 3.5 mmol/L 3.5-5.1 [facility] Sodium [Moles/Vol] 140 mmol/L 136-145 [facility] WBC (Bld) [#/Vol] 4.5 10*3/uL 4.4-11.0 [facility] Blood erythrocytes count (nu mber/volume)Ordered By: [facility]hao [facility]23 RBC (Bld) [#/Vol] 4.80 10*6/uL 4.6-6.2 [facility] Blood hemoglobin measurement (mass/volume)Or[facility] By: [facility] 04-05-2023 Hemoglobin (Bld) [Mass/Vol] 14.5 g/dL 13.0-16.5 [facility] Blood lymphocytes/100 leukoc ytesOrdered By: [facility] on 04-05-2023 Lymphocytes/100 WBC (Bld) 35.9 % 19-41 [facility] Blood monocytes/100 leukocyt esOrdered By: [facility] on 04-05-2023 Monocytes/100 WBC (Bld) 10.0 % 0-10 [facility] Blood platelet mean volumeOr dered By: [facility] on 04-05-2023 Platelet mean volume (Bld) [Entitic vol] 9.8 fL 6.2-12.0 [facility] Determination of erythrocyte mean corpuscular volume (MCV)Ordered By: [facility] 04-05-2023 MCV (RBC) [Entitic vol] 86.7 fL 80-94 [facility] Hematocrit Auto (Bld) [Volum e fraction]Ordered By: [facility] Liuwarsing on 04-05-2023 Hematocrit (Bld) [Volume fraction] 41.6 % 40-54 [facility] Laboratory - Chemistry and C hemistry - challengeOrdered By: Bhavnish Veronica on 04-05-2023 CO2 [Moles/Vol] 28.0 mmol/L 21.0-32.0 [facility] Urea nitrogen/Creatinine [Mass ratio] 29.1 mg/mg 10-20 [facility] - Hematology and Cell countsOrdered By: Charles Martin on 04-05-2023 Erythrocyte distribution width (RBC) [Entitic vol] 39.7 fL 35.1-43.9 [facility] Erythrocyte distribution width (RBC) [Ratio] 12.5 % 11.6-14.6 [facility] Immature granulocytes/100 WBC (Bld) 0.200 % 0.0-0.9 [facility] Comment on above: IG% - Immature Granu locytes (promyelocytes, myelocytes and metamyelocytes) > 1% indicates that a LEFT SHIFT is Present. MCH (RBC) [Entitic mass] 30.2 pg 27.0-32.0 [facility] Nucleated RBC/100 WBC (Bld) [Ratio] 0 % 0-5 [facility] MCHC Auto (RBC) [Mass/Vol]Or dered By: Charles Martin on 04-05-2023 MCHC (RBC) [Mass/Vol] 34.9 g/dL 32-36 [facility] No Panel InformationOrdered By: Charles Martin on 04-05-2023 Albumin (PEP) Not Reportable [facility] Yetyk-1-Sxohvltyg Not Reportable [facility] Zougi-8-Ttcvnoupe Not Reportable [facility] Estimated GFR (MDRD) Amer 150 mL/min >60 [facility] Comment on above: GFR Calc Estimated GFR (MDRD) Non-Af Amer 124 mL/min >60 [facility] Comment on above: Non- GFR Calc Gamma Globulins Not Reportable [facility] Parathyroid Hormone (Intact) 44.5 pg/mL 18.4-80.1 [facility] Platelets bldOrdered By: Rancho Martin on 04-05-2023 Platelets (Bld) [#/Vol] 146 10*3/uL 150-450 [facility] Serum albumin to globulin ra francoise by protein electrophoresisOrdered By: Charles Martin on 04-05-2023 Albumin/Globulin Elph [Mass ratio] Not Reportable [facility] Serum globulin measurement ( mass/volume)Ordered By: Charles Liubryant on 04-05-2023 Globulin (S) [Mass/Vol] Not Reportable [facility] Serum or plasma IgA measurem ent (mass/volume)Ordered By: [facility] on 04-05-2023 IgA [Mass/Vol] Not Reportable [facility] Serum or plasma IgG measurem ent (mass/volume)Ordered By: zhao Martin on 04-05-2023 IgG [Mass/Vol] See comment [facility] Comment on above: TEST RESULTS LIMITSI mmunofixation, SerumImmunofixation Result,Serum AbnormalImmunofixation shows IgG monoclonal protein with kappa light chain specificity. PLEASE NOTE: Samples from patients receiving DARZALEX(R) (daratumumab) or SARCLISA(R)(isatuximab-irfc) treatment can appear as an IgG kappa and mask a complete response (CR). If this patient is receiving these therapies, this LUKE assay interference can be removed by ordering test number [id number], Daratumumab-Specific, Serum or [id number], Isatuximab-Specific, Serum and submitting a new sample for testing or by calling the lab to add this test to the current sample.Immunoglobulin G, Qn,Serum 867 mg/dL [id number] A, Qn,Serum 118 mg/dL 61-437Immunoglobulin M, Qn,Serum 92 mg/dL 15-143 [facility] ORIGINAL REPORT ON FILE IN LAB CONTAINS ADDITIONAL TEST SITE INFORMATION. Serum or plasma IgM measurem ent (mass/volume)Ordered By: [facility] on 04-05-2023 IgM [Mass/Vol] Not Reportable [facility] Serum or plasma beta globuli n measurement by electrophoresis (mass/volume)Ordered By: [facility] on 04-05-2023 Beta globulin Elph [Mass/Vol] Not Reportable [facility] Serum or plasma calcitriol m easurement (mass/volume)Ordered By: [facility] on 04-05-2023 1,25-dihydroxyvitamin D3 [Mass/Vol] 26.0 pg/mL 24.8-81.5 [facility] Comment on above: Performed at: [address] [id number] Director: Deyanira Woods MD, Phone: [phone] Serum or plasma calcium eunice urement (mass/volume)Or[facility] By: [facility] on 04-05-2023 Calcium [Mass/Vol] 8.9 mg/dL 8.5-10.1 [facility] Serum or plasma creatinine m easurement (mass/volume)Ordered By: [facility] on 04-05-2023 Creatinine [Mass/Vol] 0.65 mg/dL 0.70-1.30 [facility] Comment on above: The validity of the calculated GFR & GFRAA in patients over 70 years has not been determined. Clinical correlation is essential. Serum or plasma urea nitroge n measurement (mass/volume)Ordered By: [facility] on 04-05-2023 Urea nitrogen [Mass/Vol] 19 mg/dL 7-18 [facility] Serum or plasma uric acid me asurement (mass/volume)Ordered By: [facility] on 04-05-2023 Urate [Mass/Vol] 4.9 mg/dL 3.5-7.2 [facility] Comment on above: The drugs N-Acetylcy steine and Metamizole may falsely depress this assay. Thin prep Papanicolaou smear with manual screeningOrdered By: Charles Martin on 04-05-2023 Thin prep Papanicolaou smear with manual screening 8 5-15 [facility] Thin prep Papanicolaou smear with manual screening Not Reportable [facility] Total protein bloodOrdered B y: Charles Martin on 04-05-2023 Protein [Mass/Vol] See comment [facility] Comment on above: TEST RESULTS LIMITSP rotein Elec + Interp, SerumProtein, Total 6.1 g/dL 6.0-8.5Albumin 3.8 g/dL 2.9-4.3Seztk-4-Hguqoglc 0.2 g/dL 0.0-0.8Qrenn-5-Weyrwikh 0.6 g/dL 0.4-1.0Beta Globulin 0.6 Low g/dL 0.7-1.3Gamma Globulin 0.8 g/dL 0.4-1.8M-Murali 0.2 High g/dL Not ObservedGlobulin, Total 2.3 g/dL 2.2-3.9A/G Ratio 1.7 0.7-1.7Please note: Protein electrophoresis scan will follow via computer, mail, orcourier delivery.P E Interpretation, SThe SPE pattern demonstrates a single peak (M-spike) in the gamma region which may represent monoclonal protein. This peak may also be caused by circulating immune complexes, cryoglobulins, C-reactive protein, fibrinogen or hemolysis. If clinically indicated, the presence of a monoclonal gammopathy may be confirmed by immunofixation, as well as an evaluation of the urine for the presence of Bence-Orellana protein. [facility] ORIGINAL REPORT ON FILE IN LAB CONTAINS ADDITIONAL TEST SITE INFORMATION. Urine creatinine measurement (mass/volume)Ordered By: Charles Martin on 04-05-2023 Creatinine (U) [Mass/Vol] 234.00 mg/dL NO RANGE EST. [facility] Urine protein measurement (m ass/volume)Ordered By: Charles Martin on 04-05-2023 Protein (U) [Mass/Vol] 39.7 mg/dL 0.0-11.8 [facility] Urine protein/creatinine mas s ratioOrdered By: Charles Martin on 04-05-2023 Protein/Creatinine (U) [Mass ratio] 170 mg/g CRE 0-200 [facility] 24CRUon 01-13-2023 Creatinine [Mass/Vol] 89.4 mg/dL Normal 39.0-259.0 [facility] ([place]) Comment on above: Performed By: #### 2 YUDI, 24UTP #### [place] [address] U24 Creatinine 1.61 g/24hr Normal 0.95-2.49 [facility] ([place]) Comment on above: Performed By: #### 2 YUDI, 24UTP #### [place] [address] 24UTPon 01-13-2023 U24 Protein 306 mg/24hr High <=149 [facility] ([place]) Comment on above: Order Comment: total volume 1800 mL Performed By: #### 2 4CRU, 24UTP #### [address] [address] U24 Total Volume 1800 mL/24hr Normal [facility] ([place]) Comment on above: Order Comment: total volume 1800 mL Performed By: #### 2 4CRU, 24UTP #### [address] [address] Ur Protein 17 mg/dL High 0-11 [facility] ([place]) Comment on above: Order Comment: total volume 1800 mL Performed By: #### 2 4CRU, 24UTP #### [address] [address] LABORATORYOrdered By: Monserrat Mccain on 01-13-2023 Creatinine (24H U) [Mass/Time] 1.61 g/24 hr Invalid Interpretation Code 0.95 - 2.49 g/24 hr AO Chemistry S Creatinine (U) [Mass/Vol] 89.4 mg/dL Invalid Interpretation Code 39.0 - 259.0 mg/dL AO ADM SS Protein (CSF) [Mass/Vol] 306 MG/24 HR Invalid Interpretation Code <=149mg/24hr AO Chemistry S Ur Protein 17 mg/dL Invalid Interpretation Code 0 - 11 mg/dL AO ADM SS No Panel InformationOrdered By: Britt Mccain on 01-13-2023 U24 Total Volume 1800 mL/24hr Invalid Interpretation Code AO Chemistry S .GFRon 01-09-2023 GFR Non- 143 ml/min/1.73sqm Normal [facility] ([place]) Comment on above: Result Comment: GFR Population mean for , Non- Americans Ages 20-29 = 116 mL/min/1.73 sq.m. Ages 30-39 = 107 mL/min/1.73 sq.m. Ages 40-49 = 99 mL/min/1.73 sq.m. Ages 50-59 = 93 mL/min/1.73 sq.m. Ages 60-69 = 85 mL/min/1.73 sq.m. Ages 70+ = 75 mL/min/1.73 sq.m. Chronic Kidney Disease: Less than 60 mL/min/1.73 square meters End Stage Renal Disease: Less than 15 mL/min/1.73 square meters Performed By: #### P SA, GFR, CMP, LIPID #### [address] [address] GFR 173 ml/min/1.73sqm Normal [facility] ([place]) Comment on above: Result Comment: GFR Population mean for , Non- Americans Ages 20-29 = 116 mL/min/1.73 sq.m. Ages 30-39 = 107 mL/min/1.73 sq.m. Ages 40-49 = 99 mL/min/1.73 sq.m. Ages 50-59 = 93 mL/min/1.73 sq.m. Ages 60-69 = 85 mL/min/1.73 sq.m. Ages 70+ = 75 mL/min/1.73 sq.m. Chronic Kidney Disease: Less than 60 mL/min/1.73 square meters End Stage Renal Disease: Less than 15 mL/min/1.73 square meters Performed By: #### P SA, GFR, CMP, LIPID #### [address] [address] CMPon 01-09-2023 Albumin Level 4.1 G/dL Normal 3.4-4.8 [facility] ([place]) Comment on above: Performed By: #### P SA, GFR, CMP, LIPID #### [address] [address] Albumin/Globulin [Mass ratio] 1.6 {ratio} Normal 1.1-2.5 [facility] ([place]) Comment on above: Performed By: #### P SA, GFR, CMP, LIPID #### [address] [address] ALP [Catalytic activity/Vol] 71 U/L Normal 40-135 [facility] ([place]) Comment on above: Performed By: #### P SA, GFR, CMP, LIPID #### [address] [address] ALT [Catalytic activity/Vol] 39 U/L Normal 16-63 [facility] ([place]) Comment on above: Performed By: #### P SA, GFR, CMP, LIPID #### [address] [address] AST [Catalytic activity/Vol] 36 U/L Normal 10-40 [facility] ([place]) Comment on above: Performed By: #### P SA, GFR, CMP, LIPID #### [address] [address] Bili Total 1.2 mg/dL High 0.2-1.0 [facility] ([place]) Comment on above: Result Comment: Use of this assay is not recommended for patients undergoing treatment with eltrombopag due to the potential for falsely elevated results. Performed By: #### P SA, GFR, CMP, LIPID #### [address] [address] BUN/Creatinine Ratio 20 ratio Normal 7-27 [facility] ([place]) Comment on above: Performed By: #### P SA, GFR, CMP, LIPID #### [address] [address] Calcium [Mass/Vol] 9.3 mg/dL Normal 8.4-10.2 [facility] ([place]) Comment on above: Performed By: #### P SA, GFR, CMP, LIPID #### [address] [address] Chloride [Moles/Vol] 104 mmol/L Normal 98-107 [facility] ([place]) Comment on above: Performed By: #### P SA, GFR, CMP, LIPID #### [address] [address] CO2 [Moles/Vol] 30 mmol/L Normal 23-31 [facility] ([place]) Comment on above: Performed By: #### P SA, GFR, CMP, LIPID #### [address] [address] Creatinine [Mass/Vol] 0.55 mg/dL Low 0.70-1.30 [facility] ([place]) Comment on above: Performed By: #### P SA, GFR, CMP, LIPID #### [address] [address] Electrolyte Balance 9.0 mEq/L Normal 4.0-15.0 [facility] ([place]) Comment on above: Performed By: #### P SA, GFR, CMP, LIPID #### [address] [address] Globulin 2.5 G/dL Normal [facility] ([place]) Comment on above: Performed By: #### P SA, GFR, CMP, LIPID #### [address] [address] Glucose [Mass/Vol] 141 mg/dL High 83-110 [facility] ([place]) Comment on above: Performed By: #### P SA, GFR, CMP, LIPID #### [address] [address] Potassium [Moles/Vol] 3.8 mmol/L Normal 3.5-5.1 [facility] ([place]) Comment on above: Performed By: #### P SA, GFR, CMP, LIPID #### [address] [address] Sodium [Moles/Vol] 143 mmol/L Normal 136-145 [facility] ([place]) Comment on above: Performed By: #### P SA, GFR, CMP, LIPID #### [address] [address] Total Protein 6.6 G/dL Normal 6.4-8.2 [facility] ([place]) Comment on above: Performed By: #### P SA, GFR, CMP, LIPID #### [address] [address] Urea nitrogen [Mass/Vol] 11 mg/dL Normal 7-18 [facility] ([place]) Comment on above: Performed By: #### P SA, GFR, CMP, LIPID #### [address] [address] LABORATORYOrdered By: Audra Becerra on 01-09-2023 Albumin DL <= 20 mg/L (U) [Mass/Vol] 7830 mcg/dL Invalid Interpretation Code AO ADM SS Albumin/Creatinine DL <= 20 mg/L (U) [Mass ratio] 416 mcg/mg Invalid Interpretation Code 0 - 30 mcg/mg AO ADM SS Creatinine (U) [Mass/Vol] 18.8 mg/dL Invalid Interpretation Code 39.0 - 259.0 mg/dL AO ADM SS Cholesterol [Mass/Vol] 116 mg/dL Invalid Interpretation Code 0 - 200 mg/dL AO ADM SS Cholesterol in HDL [Mass/Vol] 65 mg/dL Invalid Interpretation Code 40 - 60 mg/dL AO ADM SS Cholesterol in LDL [Mass/Vol] 43 mg/dL Invalid Interpretation Code 0 - 130 mg/dL AO ADM SS Triglyceride [Mass/Vol] 42 mg/dL Invalid Interpretation Code 0 - 150 mg/dL AO ADM SS LABORATORYOrdered By: [facility] on 01-09-2023 Albumin BCP dye [Mass/Vol] 4.1 G/dL Invalid Interpretation Code 3.4 - 4.8 G/dL AO ADM SS Albumin/Globulin [Mass ratio] 1.6 {ratio} Invalid Interpretation Code 1.1 - 2.5 ratio AO ADM SS ALP [Catalytic activity/Vol] 71 U/L Invalid Interpretation Code 40 - 135 U/L AO ADM SS ALT With P-5'-P [Catalytic activity/Vol] 39 U/L Invalid Interpretation Code 16 - 63 U/L AO ADM SS AST With P-5'-P [Catalytic activity/Vol] 36 U/L Invalid Interpretation Code 10 - 40 U/L AO ADM SS Bilirubin [Mass/Vol] 1.2 mg/dL Invalid Interpretation Code 0.2 - 1.0 mg/dL AO ADM SS Calcium [Mass/Vol] 9.3 mg/dL Invalid Interpretation Code 8.4 - 10.2 mg/dL AO ADM SS Chloride [Moles/Vol] 104 mmol/L Invalid Interpretation Code 98 - 107 mmol/L AO ADM SS CO2 [Moles/Vol] 30 mmol/L Invalid Interpretation Code 23 - 31 mmol/L AO ADM SS Creatinine [Mass/Vol] 0.55 mg/dL Invalid Interpretation Code 0.70 - 1.30 mg/dL AO ADM SS Electrolyte Balance 9.0 mEq/L Invalid Interpretation Code 4.0 - 15.0 mEq/L AO ADM SS GFR/1.73 sq M.predicted among blacks MDRD (S/P/Bld) [Vol rate/Area] 173 ml/min/1.73sqm Invalid Interpretation Code AO Chemistry S GFR/1.73 sq M.predicted among non-blacks MDRD (S/P/Bld) [Vol rate/Area] 143 ml/min/1.73sqm Invalid Interpretation Code AO Chemistry S Globulin 2.5 G/dL Invalid Interpretation Code AO ADM SS Glucose [Mass/Vol] 141 mg/dL Invalid Interpretation Code 83 - 110 mg/dL AO ADM SS Potassium [Moles/Vol] 3.8 mmol/L Invalid Interpretation Code 3.5 - 5.1 mmol/L AO ADM SS Prostate specific Ag [Mass/Vol] 2.94 ng/mL Invalid Interpretation Code 0.00 - 4.00 ng/mL AO ADM SS Protein [Mass/Vol] 6.6 G/dL Invalid Interpretation Code 6.4 - 8.2 G/dL AO ADM SS Sodium [Moles/Vol] 143 mmol/L Invalid Interpretation Code 136 - 145 mmol/L AO ADM SS Urea nitrogen [Mass/Vol] 11 mg/dL Invalid Interpretation Code 7 - 18 mg/dL AO ADM SS Urea nitrogen/Creatinine [Mass ratio] 20 ratio Invalid Interpretation Code 7 - 27 ratio AO ADM SS LIPIDon 01-09-2023 Cholesterol [Mass/Vol] 116 mg/dL Normal 0-200 [facility] ([place]) Comment on above: Result Comment: Chol esterol Reference Interval: Less than 200 Desirable 200-239 Borderline high risk 240 and above High risk Performed By: #### P SA, GFR, CMP, LIPID #### [address] [address] Cholesterol in HDL [Mass/Vol] 65 mg/dL High 40-60 [facility] ([place]) Comment on above: Performed By: #### P SA, GFR, CMP, LIPID #### [address] [address] Cholesterol in LDL [Mass/Vol] 43 mg/dL Normal 0-130 [facility] ([place]) Comment on above: Performed By: #### P SA, GFR, CMP, LIPID #### [address] [address] Triglyceride [Mass/Vol] 42 mg/dL Normal 0-150 A [facility] ([place]) Comment on above: Result Comment: Trig lyceride Reference Interval: Less than 150 Normal 150-199 Borderline high risk 200-499 High risk 500 or higher Very high risk Performed By: #### P SA, GFR, CMP, LIPID #### [address] [address] MALBRon 01-09-2023 U Creatinine 18.8 mg/dL Low 39.0-259.0 [facility] ([place]) Comment on above: Performed By: #### M ALBR #### [address] [address] U Microalb 7830 mcg/dL Normal [facility] ([place]) Comment on above: Performed By: #### M ALBR #### [address] [address] U Ratio Alb/Cre 416 mcg/mg High 0-30 [facility] ([place]) Comment on above: Performed By: #### M ALBR #### [address] [address] PSAon 01-09-2023 Prostate Specific Antigen 2.94 ng/mL Normal 0.00-4.00 [facility] ([place]) Comment on above: Performed By: #### P SA, GFR, CMP, LIPID #### [address] [address] PSAFon 07-06-2022 PSA, % Free 46 % Normal [facility] ([place]) Comment on above: Result Comment: Tota l and free PSA test methodology used is the Electrochemiluminescence Immunoassay by [employer]. Total or free PSA values by differing methodologies cannot be interchanged. The below table lists the probability of finding prostate cancer upon needle biopsy, for men 50 years or older and total PSA concentrations from 4.0-10.0 ng/mL. Results should be interpreted within the broader clinical context. Free PSA(%) 50-59 years 60-69 years >69 years <11 49.2% 57.5% 64.5% 11-18 26.9% 33.9% 40.8% 19-25 18.3% 23.9% 29.7% >25 9.1% 12.2% 15.8% Performed By: [facility] [address] [place] [address] Fire Boat Engineer: Allyn Fraga III#: [id number] Performed By: #### P SATF #### [address] [address] PSA, Diagnostic 4.34 ng/mL High <2.60 [facility] ([place]) Comment on above: Result Comment: Tota l PSA test methodology used is the Electrochemiluminescence Immunoassay by [employer]. Total PSA values by differing methodologies cannot be interchanged. For an individual patient, the significance of a PSA level should be interpreted in a broad clinical context, including age, race, family history, digital rectal exam, prostate size, results of prior testing (prostate biopsy, free PSA, PCA3), and use of 5-alpha reductase inhibitors. Considering the high incidence of asymptomatic cancer in the general population that may not pose an ultimate risk to a patient, the decision to recommend urological evaluation or prostate biopsy should be individualized after consideration of all these factors. REFERENCE: Kishan Clifford M.D., M.P.H., Rich Aiken M.D., Ph.D., Blaine Hauser M.D., Peggy Quiles M.P.H., Michelle Roman, ScOlinda. Effect of Verification Bias on Screening for Prostate Cancer by Measurement of Prostatic Specific Antigen. N Engl J Med 2003,349:335-42. Performed By: [facility] [employer] [address] [place] [address] Fire Boat Engineer: Allyn Fraga IIIIA#: [id number] Performed By: #### P OLLIE #### Josephine [address] [address] LABORATORYOrdered By: Ni Velasquez on 12-06-2021 Albumin BCP dye [Mass/Vol] 3.7 G/dL Invalid Interpretation Code 3.4 - 4.8 G/dL AO ADM SS Albumin/Globulin [Mass ratio] 1.3 {ratio} Invalid Interpretation Code 1.1 - 2.5 ratio AO ADM SS ALP [Catalytic activity/Vol] 70 U/L Invalid Interpretation Code 40 - 135 U/L AO ADM SS ALT With P-5'-P [Catalytic activity/Vol] 35 U/L Invalid Interpretation Code 16 - 63 U/L AO ADM SS AST With P-5'-P [Catalytic activity/Vol] 42 U/L Invalid Interpretation Code 10 - 40 U/L AO ADM SS Bilirubin [Mass/Vol] 1.1 mg/dL Invalid Interpretation Code 0.2 - 1.0 mg/dL AO ADM SS Calcium [Mass/Vol] 9.3 mg/dL Invalid Interpretation Code 8.4 - 10.2 mg/dL AO ADM SS Chloride [Moles/Vol] 101 mmol/L Invalid Interpretation Code 98 - 107 mmol/L AO ADM SS Cholesterol [Mass/Vol] 114 mg/dL Invalid Interpretation Code 0 - 200 mg/dL AO ADM SS Cholesterol in HDL [Mass/Vol] 65 mg/dL Invalid Interpretation Code 40 - 60 mg/dL AO ADM SS Cholesterol in LDL [Mass/Vol] 40 mg/dL Invalid Interpretation Code 0 - 130 mg/dL AO ADM SS CO2 [Moles/Vol] 30 mmol/L Invalid Interpretation Code 23 - 31 mmol/L AO ADM SS Creatinine [Mass/Vol] 0.56 mg/dL Invalid Interpretation Code 0.70 - 1.30 mg/dL AO ADM SS Electrolyte Balance 8.0 mEq/L Invalid Interpretation Code 4.0 - 15.0 mEq/L AO ADM SS Globulin 2.9 G/dL Invalid Interpretation Code AO ADM SS Glucose [Mass/Vol] 132 mg/dL Invalid Interpretation Code 83 - 110 mg/dL AO ADM SS Potassium [Moles/Vol] 4.0 mmol/L Invalid Interpretation Code 3.5 - 5.1 mmol/L AO ADM SS Prostate specific Ag [Mass/Vol] 4.08 ng/mL Invalid Interpretation Code 0.00 - 4.00 ng/mL AO ADM SS Protein [Mass/Vol] 6.6 G/dL Invalid Interpretation Code 6.4 - 8.2 G/dL AO ADM SS Sodium [Moles/Vol] 139 mmol/L Invalid Interpretation Code 136 - 145 mmol/L AO ADM SS Triglyceride [Mass/Vol] 43 mg/dL Invalid Interpretation Code 0 - 150 mg/dL AO ADM SS Urea nitrogen [Mass/Vol] 19 mg/dL Invalid Interpretation Code 7 - 18 mg/dL AO ADM SS Urea nitrogen/Creatinine [Mass ratio] 34 ratio Invalid Interpretation Code 7 - 27 ratio AO ADM SS LABORATORYOrdered By: Asif Howard on 12-06-2021 Albumin DL <= 20 mg/L (U) [Mass/Vol] 6116 mcg/dL Invalid Interpretation Code AO ADM SS Albumin/Creatinine DL <= 20 mg/L (U) [Mass ratio] 40 mcg/mg Invalid Interpretation Code 0 - 30 mcg/mg AO ADM SS Creatinine (U) [Mass/Vol] 151.8 mg/dL Invalid Interpretation Code 39.0 - 259.0 mg/dL AO ADM SS LABORATORYOrdered By: SYSTEM SYSTEM on 12-06-2021 GFR 170 ml/min/1.73sqm Invalid Interpretation Code AO Chemistry S GFR Non- 140 ml/min/1.73sqm Invalid Interpretation Code AO Chemistry S LABORATORYOrdered By: Pamela Dubois on 01-13-2021 Glucose [Mass/Vol] 114 mg/dL Invalid Interpretation Code 82 - 115 mg/dL [facility] Work Phone: PROGRESS NOTEon 12-05-2018 Protein mass conc [facility] PROGRESS NOTE/DISCHARGE SUMMARY NAME ACCOUNT SEX AGE ADMIT DISCHARGE PT MED. RECORD# NUMBER DATE DATE TYPE LEAVER, [id number] Bernard 78 11/26/18 Hola MARISCAL [id number] ROOM: [facility] DATE OF : 1940 DICTATING PHYSICIAN: Stefany Vides DATE OF SERVICE: November 27, 2018 ADMITTING DIAGNOSES: 1. Right knee primary osteoarthritis. 2. Hypertension. 3. Prediabetes/diabetes. FINAL DIAGNOSES: 1. Right knee primary osteoarthritis. 2. Hypertension. 3. Prediabetes/diabetes. 4. Status post right total knee replacement. SUBJECTIVE: The patient had ongoing history of right knee pain. After failing conservative measures, the patient underwent a right total knee replacement yesterday. He did receive perioperative antibiotics. Intraoperatively, he was uneventful. For details, please see dictated operative report. He was transferred to the third floor at [facility]. His pain has been fairly well-controlled. He feels that the knee is tight. He currently denies chest pain, shortness of breath, dizziness, or calf pain. He seems to be doing well overall. He would like to consider a discharge to home later today. OBJECTIVE: Vitals: Spo2 94% on 1 liter nasal cannula, blood pressure 129/75, pulse 60, temperature 98.2, respirations 16. The patient is alert and oriented x3 in no acute distress at rest breathing easily without respiratory distress. Inspection of the right knee reveals a Mepilex dressing that is clean, dry, and intact. Negative Iain's bilaterally without signs of DVT. Pedal pulse is present and equal bilaterally. Sensation is intact to light touch. The patient is able to actively plantar and dorsiflex bilateral feet against resistance. Neurovascularly intact. DIAGNOSTIC DATA: Postoperative x-rays were reviewed and are with a right total knee replacement without evidence of hardware failure or loosening. CBC results: White blood cell count is 10.5, hemoglobin 13.2, hematocrit 37.0, platelet count 155,000. Fasting blood glucose this morning was 224 and bedside glucoses have ranged between 147 and 224. ASSESSMENT/PLAN: Page 1 of 2 LOIDA DONG Progress Note/Discharge Summary 1. Status post right total knee arthroplasty postoperative day #1. 2. Continue Percocet 5/325 1 to 2 p.o. every 4 hours p.r.n. pain and Oramorph 15 mg 1 p.o. b.i.d. for pain control. 3. Deep venous thrombosis prophylaxis with bilateral NEPTALI and sequential compression devices and aspirin 81 mg 1 p.o. b.i.d. for 1 month postoperative. 4. Begin physical therapy/occupational therapy, weightbearing as tolerated, right lower extremity with a walker. 5. Encouraged incentive spirometry. 6. Continue postoperative medical management per hospitalist group. I did stress the importance to the patient of keeping perioperative blood sugars less than 200. He voiced understanding. 7. Cortes catheter has been discontinued. The patient will attempt to void on his own today. 8. The patient is orthopedically stable and okay for discharge to home today if he is cleared medically, having adequate pain control, and working well with physical therapy. Follow up in the office next week for reassessment right knee with x-rays. Dictated By: Stefany Vides PA-C 11/27/18 07:28 JOB #: [id number] Transcribed By: am 11/27/18 14:13 Electronically signed by: E-sign Stefany BLANK 12/03/18 08:57 Page 2 of 2 LOIDA DONG Progress Note/Discharge Summary Normal [facility] HISTORY AND PHYSICAL EXAMon 12-03-2018 HISTORY AND PHYSICAL EXAM [facility] HISTORY & PHYSICAL NAME ACCOUNT SEX AGE ADMIT DISCHARGE PT MED. RECORD# NUMBER DATE DATE TYPE LEAVER, [id number] M 78 1 LOIDA [id number] ROOM: DATE OF : 40 DICTATING PHYSICIAN: Stefany Vides PROCEDURE TYPE: Right total knee replacement. PROCEDURE DATE: November 26, 2018 ATTENDING PHYSICIAN: Dr. Clark John. HISTORY OF PRESENT ILLNESS: This is a 78-year-old male with a chief complaint of progressively worsening right knee pain since around spring. He has had a previous left total knee replacement and is very pleased with the surgical outcome. No specific injury. The pain is described as intermittent, aching, sharp, stabbing and sore. He occasionally gets a shooting pain. He does have some buttock and right leg pain on occasion. Stairs, driving, walking 40 or 50 feet, and walking up a hill seem to make his symptoms worse. Activity modifications include a reduced ability to perform normal daily activities. He has been having difficulties with bathing, showering, getting dressed, and doing his grocery shopping. He used to enjoy going to flea markets and garage sales, but he cannot do this anymore. Cutting wood, lawn care, and family vacations are increasingly difficult to partake in. The pain is between a 2 and 9/10, on average a 7/10. He has tripped and stumbled. He feels unsafe using a wheelbarrow for his wood or clearing snow for fear that the knee is going to give out. Conservative measures have included rest, elevation, cortisone injection, physical therapy, home exercises, and [id number] Advil without any long-term relief. He has not had any previous surgeries on this knee. He feels he has failed adequate nonoperative measures and wishes to proceed with a right total knee replacement at this time. PAST MEDICAL HISTORY: (1) Hypertension. (2) Pre-diabetes/diabetes. PAST SURGICAL HISTORY: (1) Cholecystectomy in 2001. (2) Left ankle surgery in 2004. (3) Hemorrhoidectomy in 1996. (4) Left total knee replacement in August 2011. MEDICATIONS: (1) Advil 200 mg one p.o. daily. (2) Amlodipine/valsartan 5/320 mg one p.o. daily. (3) Atorvastatin calcium 20 mg one p.o. daily. (4) CoQ10 100 mg every day. (5) Coreg 80 mg one p.o. at h.s. (6) Esomeprazole magnesium 40 mg one p.o. daily. (7) Hydrochlorothiazide 25 mg one p.o. q.a.m. (8) Klor-Con 10 mEq one p.o. b.i.d. (9) Krill oil 500 mg one p.o. daily. (10) Vitamin D3 1000 units one capsule p.o. daily. ALLERGIES: No known drug allergies. Page 1 of 4 LOIDA DONG History & Physical SOCIAL HISTORY: Retired. Former smoker. He admits to occasional alcohol use. He denies illicit drug use. REVIEW OF SYSTEMS: Documented in the [facility] medical history sheet. Please refer to the attached document. PHYSICAL EXAMINATION GENERAL APPEARANCE: The patient is alert and oriented x3, in no acute distress at rest, breathing easily without respiratory distress. VITAL SIGNS: Height is 72 inches. Weight is 222 pounds. BMI is 30.1. Blood pressure is 132/82, pulse 70, respirations 16, and temperature 98.4. HEENT: Head: Normocephalic, atraumatic. Eyes: PERRLA, EOMI. Sclerae anicteric. Conjunctivae without injection. Ears: Auditory acuity is grossly intact bilaterally. Nose: Bilateral patent nares without tenderness or drainage. Throat: Pharynx is clear without erythema or exudate. Tongue and uvula are midline. Buccal mucosa is pink and moist. NECK: Supple without adenopathy, JVD, carotid bruit, masses or tenderness. CHEST: Symmetrical and nontender to palpation. AP diameter is within normal limits. LUNGS: Clear to auscultation bilaterally without wheezes, rales or rhonchi. HEART: Regular rate and rhythm without murmurs, rubs or gallops appreciated at this time. ABDOMEN: Soft, nondistended. Normoactive bowel sounds x4 without tenderness. EXTREMITIES/MUSCULOSKELE RIN: He is able to stand and walk with a limp with pain coming from the right knee. The right knee has pain and crepitus with motion of 0-125 degrees. The right knee has varus deformity. The left knee has a well-healed incision. The knees are ligamentously stable. Grade 5 strength. Joint line tenderness medial more so than lateral. Patellofemoral pain and crepitus of the right knee. No calf pain or swelling. Negative Homans sign. Legs are neurovascularly intact. No hip pain with gentle motion. Negative straight leg raise. No pain with axial loading of the hips. NEUROLOGICAL: Cranial nerves II through XII are grossly intact without any focal sensory or motor deficits noted. DIAGNOSTIC DATA: X-rays of the right knee dated June 29, 2018, from [facility]; weightbearing AP, tunnel, sunrise and lateral views, are consistent with [id number] contact medially, patellofemoral arthritis, loss of joint space, bone spurring medially and laterally, no obvious acute fractures or dislocation, and sclerosis of the distal femur and upper tibia. Page 2 of 4 LOIDA DONG History & Physical IMPRESSIONS: 1. Right knee primary osteoarthritis. 2. Obesity. 3. Diabetes. 4. Hypertension. PLAN: Dr. Clark John did discuss and review with the patient all treatment options, including surgical versus nonsurgical. At this time, the patient does wish to proceed with a right total knee replacement. The potential risks, benefits, and complications of this procedure were reviewed in detail, including but not limited to , infection, nerve and blood vessel damage, persistent pain, numbness, tingling, paresthesias, blood clot, pulmonary embolism, and requirement of possible further surgery. The patient expressed full understanding. He has no further questions for the doctor and does agree to proceed with the above-stated procedure and signed the appropriate surgery consent form. The plan is for discharge to home upon leaving the hospital. Dictated By: Stefany Vides PA-C 11/12/18 07:27 JOB #: [id number] Transcribed By: kaden 11/12/18 08:25 Electronically signed by: E-sign Stefany BLANK 11/26/18 10:00 Update to H&P: [ ] No changes: I have examined the patient and reviewed the H&P and there are no changes. [ ] As previously dictated with the following changes: PHYSICIAN SIGNATURE: _ TIME: DATE: Page 3 of 4 LOIDA DONG History & Physical Normal [facility] OPERATIVE PROCEDURESon 12-03 Protein mass [facility] OPERATIVE REPORT NAME ACCOUNT SEX AGE ADMIT DISCHARGE PT MED. RECORD# NUMBER DATE DATE TYPE IKER, [id number] Bernard 78 11/26/18 2 LOIDA [id number] ROOM: [facility] DATE OF : 1940 DICTATING PHYSICIAN: Clark John DATE OF SURGERY: November 26, 2018 SURGEON: Clark John MD [employer]: Stefany Vides PA-C/[employer]WINDER [employer] student ANESTHESIOLOGIST: Bonnie Laurent CRNA ANESTHETIC: Duramorph spinal. PREOPERATIVE DIAGNOSIS: Right knee primary osteoarthritis. POSTOPERATIVE DIAGNOSIS: Right knee primary osteoarthritis. OPERATION PERFORMED: Right total knee replacement. COMPLICATIONS: None. ESTIMATED BLOOD LOSS: 50 mL. SPECIAL MEDICATIONS: Ancef, tranexamic acid. INDICATIONS FOR SURGERY: The patient is a 78-year-old man with a history of knee arthritis. He had a previous left knee replacement and has done well. He wishes to have a right knee replacement. Appropriate informed consent was obtained and signed. FINDINGS: Intraoperative findings were consistent with his history, physical, and radiographic examination. He has severe arthritis of the right knee. He underwent a standard small incision, anterior approach to the knee followed by a cemented ConforMIS custom total knee replacement using a pre-made femur and tibia. The patella was a 38 x 8.5 mm symmetric patella. The inserts were 6A, which corresponded with a 6.1 mm medial and an 8 mm lateral polyethylene thickness. This reproduced his anatomy nicely. The patella tracked well. He underwent standard wound closure in layers. certified ophthalmic surgical assistant, physician respiratory therapy assistant was utilized throughout the entire procedure. Page 1 of 3 LOIDA DONG Operative Report She helped with patient positioning, holding of limbs, and holding of retractors. She helped with exposure throughout. She helped with sizing and alignment of the components, wound closure, bandage application, and patient transfer. Without executive personal assistant, surgical time would have been increased significantly, and surgical outcome could have been less optimal. DESCRIPTION OF OPERATION: The patient was taken to the operating room and transferred to the OR table. He was given a Duramorph spinal anesthetic previously. Appropriate time-out was performed. A well-padded tourniquet was applied to the right upper thigh. NEPTALI hose and an SCD were placed on the left lower extremity. The right lower extremity was prepped, padded and draped in the usual sterile orthopedic fashion for the procedure. We began by injecting our pain-relieving solution of epinephrine, Duramorph and ropivacaine into the anterosuperior knee. The limb was exsanguinated, and the tourniquet was applied to 300 mmHg. A midline incision was made through skin and subcutaneous tissue, bringing us down to the extensor mechanism. Medial parapatellar arthrotomy was carried out. Straw-colored joint fluid was evacuated. Bone spurs were removed about the patella. We released a sleeve of tissue off the upper and medial tibia. We resected the infrapatellar fat pad. We resected degenerative medial and lateral menisci as well as the ACL. The PCL was preserved. The collateral ligaments were preserved. We took tissue off the anterior aspect of the distal femur. Severe arthritis was noted throughout the knee. At this point, the cutting guide system was used for the femur under standard technique, performing the anterior, posterior and chamfer cuts with the assistants holding the limb, holding the retractors, and having adequate exposure. We then went to the tibial side and removed the cartilage from the upper tibia. The tibial external alignment guides were held in place with three pins. We originally did a -2 cut based on the I-view. We decided to switch to a neutral cut with 0, which was done. This was done with 10 degrees of posterior slope built in to match his anatomy. Once this was done, the femoral trial was placed. The tibial trial was placed, and it was allowed to free float. We checked the external alignment. We pinned that in place. The punch and the drill were used on the upper tibia. The patella was everted, measured and appropriate resection carried out, leaving us a 15 mm thick patella. We did remove bone spurs from the posteromedial and posterolateral aspect of the knee as well. The guide for the patella was held by surgeon while the respiratory therapy assistant drilled three holes into the patella. The trial was placed and removed. The wound was thoroughly irrigated, cleaned and dried. We controlled the bleeding at the back of the knee with the Bovie. We injected the back of the knee with our pain-relieving solution with a spinal needle. Two full batches of bone cement were mixed. The knee was thoroughly irrigated, cleaned and dried. When the knee was thoroughly dry and the cement was at the appropriate texture, we cemented on the tibia, femur and patella. The patella was clamped in position, and the other things were hammered into position. The excess bone cement was removed. Inserts were placed, and the knee was held in full extension. While the surgeon was holding the knee in full extension, the respiratory therapy assistant injected pain-relieving solution throughout the knee. Once this was done and the cement was adequately hardened, the tourniquet was let down at 54 minutes. The bleeding was controlled with the Bovie. The wound was thoroughly irrigated. We trialed and decided on the 6A inserts as above. Each of the trials were sequentially removed, Page 2 of 3 LOIDA DONG Operative Report that compartment irrigated and cleansed, and then the actual insert placed medially and laterally. At this point, the knee was flexed and extended, and the patella tracked nicely. The tourniquet was then let down. Bleeding was controlled with the Bovie. The arthrotomy was repaired with #1 Vicryl about the patella, a running #2 Stratafix, a mid-layer of 0 Vicryl, inverted 2-0 Vicryl, skin prep, Steri-Strips, Mepilex dressing, LUIS ALBERTO wraps, NEPTALI hose and SCDs. He was awakened from his anesthetic and transferred back to his own bed in the recovery room in satisfactory condition. He will be brought in as an observation status. The hospitalist will be consulted due to his diabetes, and we will plan on aspirin for DVT prevention. Dictated By: Clark John MD 11/26/18 14:31 JOB #: [id number] Transcribed By: kaden 11/27/18 10:26 Electronically signed by: E-SIGN DR. CLARK JOHN M.D. 12/03/18 08:54 Page 3 of 3 LOIDA DONG Operative Report Normal [facility] [facility] PROGRESS NOTEon 12-03-2018 Protein mass [facility] PROGRESS NOTE NAME ACCOUNT SEX AGE ADMIT DISCHARGE PT MED. RECORD# NUMBER DATE DATE TYPE LEAVER, [id number] Bernard 78 11/26/18 Hola MARISCAL [id number] ROOM: 301 DATE OF : 1940 DICTATING PHYSICIAN: Clark John DATE OF SERVICE: November 28, 2018 CHIEF COMPLAINT: Right knee replacement. SUBJECTIVE: Patient is postoperative day number 2 from a right total knee replacement. He was not able to void yesterday. Medical service felt more comfortable starting him on Flomax and keeping him overnight. Patient's Cortes has been removed. Patient has been able to void on his own reportedly. He denies chest pain or shortness of breath. He is hoping for discharge to home later today. OBJECTIVE: T-max was 100.2. TC is 98.6. Vital signs are stable. Nursing summary sheet was reviewed. Right knee bandage on, clean and dry. Mepilex dressing was checked. There is no blood on it. Luis Alberto wrap was reapplied. He had no calf pain or swelling bilaterally. Negative Iain's sign bilaterally. Good active motion toes and ankles. Knee motion is 5 to 35 degrees. He is able to do a straight leg raise bilaterally. Legs are neurovascularly intact. DIAGNOSTIC DATA: X-rays have been reviewed yesterday showing a knee replacement in good position. Laboratory work shows a white count of 8.3, hemoglobin 11.9, platelet count 143,000. Metabolic panel from yesterday reviewed. UA reviewed. Most recent glucose 167. Highest glucose 224 yesterday morning. ASSESSMENT: 1. Right knee replacement for arthritis. 2. Diabetes. 3. Difficulty voiding. PLAN: Treatment options were discussed with the patient. Hopefully he will be ready for discharge to home today. If okay with the hospitalist's service he will be discharged. Ice and elevate the knee. Work on knee range of motion. I believe he is going to be started on Flomax and continue with that at home. Continue with pain medication. Continue aspirin for DVT prevention. We will follow him up in the office in 12 days. Dictated By: Clark John MD 11/28/18 09:04 Page 1 of 2 LOIDA DONG Progress Note JOB #: [id number] Transcribed By: [email or web address] 11/28/18 09:14 Electronically signed by: E-SIGN DR. CLARK JOHN M.D. 12/03/18 08:54 Page 2 of 2 LOIDA DONG Progress Note Normal [facility] REPORTon 12-01-19 [facility] REPORT [facility] CONSULTATION REPORT NAME ACCOUNT SEX AGE ADMIT DISCHARGE PT MED. NUMBER DATE DATE TYPE RECORD# LOIDA DONG [id number] M 78 11/26/18 2 [id number] ROOM: [facility] DATE OF : 1940 DICTATING PHYSICIAN: Tammy Coker DATE OF CONSULTATION: November 27, 2018 CONSULTING PHYSICIAN: Dr. Clark John REASON FOR CONSULTATION: Postoperative medical management with right total knee replacement. HISTORY OF PRESENT ILLNESS: The patient is a 78-year-old male with past medical history significant for hypertension, prediabetes, and osteoarthritis. He underwent right total knee replacement without any apparent complications. He has been followed by orthopedics. Pain is controlled. He states he has had hypertension for several years. He was started on Metformin in August for diabetes and he took the first dose and vomited and his family practitioner plans to treat him again after surgery is completed and he is at home. Upon evaluation, he states the pain is controlled. He denies any acute complaints. His blood pressure has been stable. PAST MEDICAL HISTORY: (1) Hypertension. (2) Prediabetes/diabetes. He had vomited from first dose of metformin. (3) Obesity with BMI of 30.71. (4) Vertigo. (5) Obstructive sleep apnea. He declined CPAP in the past. (6) Hyperlipidemia. PAST SURGICAL HISTORY: (1) Right total knee replacement on November 26, 2018. (2) Left total knee replacement in 2010. (3) Hemorrhoidectomy by Dr. Rogelio Sandhu. (4) Multiple colonoscopies with colon polyps. He states he is due in the next few years for repeat. (5) Cholecystectomy. (6) Left ankle surgery. MEDICATIONS: Current medications: (1) Atorvastatin 20 mg daily. (2) Carvedilol daily. (3) Vitamin D3 1000 international units daily. (4) Esomeprazole 40 mg daily. (5) Krill oil 500 mg daily. (6) Potassium chloride 10 mEq daily. (7) Amlodipine/Valsartan 5/320 mg daily. (8) Hydrochlorothiazide 25 mg daily. (9) CoQ10 100 mg daily. ALLERGIES: No known drug allergies. Page 1 of 2 [facility] Consultation FAMILY HISTORY: Mother from complications from a bowel obstruction. Father with prostate cancer. SOCIAL HISTORY: The patient is . He lives at home with spouse. He is retired from [employer]. He worked there for 32 years. He drinks multiple cups of coffee per day. He does not smoke nor drink alcohol. REVIEW OF SYSTEMS: Denies any headache, acute visual changes. No recent weight changes, fever, or chills. No itching or rashes. No chest pain or shortness of breath. He states his pain in his knee is controlled. He has not had any increased pain. He has not had any previous heart disease. PHYSICAL EXAMINATION: The patient was sitting up in no acute distress. He is alert, pleasant, cooperative, well-nourished, and well-developed male in no acute distress. Blood pressure 129/75, heart rate 60, respirations 16, temperature 98.2, oxygen saturation 94% on room air, and weight 232 pounds. BMI is 30.71. HEENT: Unremarkable. Neck is supple. No nodes or masses. No JVD. No bruit. Lungs: Normal respiratory effort, equal lung expansion, clear to auscultation bilaterally. Heart regular rate and rhythm. Abdomen: Positive bowel sounds. Soft and nontender. Extremities revealed NEPTALI hose in place with no pitting edema. Neurologic: He is alert and oriented. Mood, affect, and memory within normal limits. DIAGNOSTIC DATA: Laboratory data reviewed and on chart. ASSESSMENT/RECOMMENDATIO N: 1. 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 2. Hypertension with stable blood pressure. He will follow up with his primary care physician as an outpatient. 3. Prediabetes/diabetes. I did talk to him about retrying metformin maybe at the lowest dose and see if he can tolerate. Due to the research and the fact that he may oh off complications in the future by trying it again, I will leave this up to his primary care physician. 4. All other medical conditions appear stable at present. Thank you for the consultation. From a medical standpoint, he maybe discharged home to follow up with his primary care physician as an outpatient. Dictated by sergey Og for Tammy Coker M.D. 11/27/18 11:48 I evaluated the patient myself, The above E&M is accurate and done by me Ronna Coker M.D. JOB #: [id number] Transcribed By: am 11/27/18 18:59 Electronically signed by: Page 2 of 2 LOIDA DONG Consultation E-Sign: TAMMY COKER MD 11/30/18 11:16 Page 3 of 2 LOIDA DONG Consultation Normal [facility] PROGRESS NOTESon 11-30-2018 Protein mass conc [facility] PROGRESS NOTE NAME ACCOUNT SEX AGE ADMIT DISCHARGE PT MED. RECORD# NUMBER DATE DATE TYPE LEAVER, [id number] Bernard 78 11/28/18 1 LOIDA [id number] ROOM: [facility] DATE OF : 1940 DICTATING PHYSICIAN: Tammy Coker DATE OF SERVICE: November 28, 2018 SUBJECTIVE: The patient is able to urinate on his own since the initiation of Flomax. Update from nursing staff. He is feeling well. Denies any acute complaints. OBJECTIVE: Blood pressure 131/65, heart rate 83, respirations 16, temperature 98.6 with T-max of 99. Oxygen saturation 96% on room air. A well-nourished, well-developed 78-year-old male in no acute distress who is alert, pleasant and cooperative. Able to answer questions appropriately. No focal deficits noted. Lungs: Normal respiratory effort. ASSESSMENT AND PLAN: 1. Urinary retention improved with Flomax. Will send him home on 0.8 mg daily for 30 days with 1 refill. He will follow up with his primary care physician. He will recommend urology if he has any further difficulties. This may have just been from the surgery and catheter. 2. Case was discussed with Dr. Clark John this morning and from a medical standpoint, he can be discharged home. The only new prescription for medicine was Flomax 0.8 mg daily. 3. Above was discussed with the patient. All of his questions were answered. He verbalized understanding of the plan. Thank you for the consultation. Dictated by sergey Og for Dr. Coker I evaluated the patient myself, The above E&M is accurate and done by me Ronna Coker M.D. 11/28/18 11:21 JOB #: [id number] Transcribed By: so 11/28/18 11:23 Electronically signed by: E-Sign: TAMMY COKER MD SIGNDATE Page 1 of 1 LOIDA DONG Progress Note Normal [facility] Protein mass [facility] PROGRESS NOTE NAME ACCOUNT SEX AGE ADMIT DISCHARGE PT MED. RECORD# NUMBER DATE DATE TYPE IKER, [id number] M 78 11/26/18 Hola MARISCAL [id number] ROOM: 301 DATE OF : 1940 DICTATING PHYSICIAN: Tammy Coker DATE OF SERVICE: November 27, 2018 SUBJECTIVE: Mr. Dong was doing well postoperatively. He had some reduced urine output and at that point I did order a bladder scan. This revealed more than 900 mL in the bladder. At that point, he underwent a straight cath and 1200 mL of urine was removed. He was initiated on Flomax 0.4 mg. I will give him another dose of that today. ASSESSMENT: Urinary retention. PLAN: We will initiate Flomax. We will give 0.8 mg today and reassess the situation in the morning. The patient should remain in here for now. Dictated By: Tammy Coker MD 11/27/18 16:49 JOB #: [id number] Transcribed By: taylor 11/27/18 19:00 Electronically signed by: E-Sign: TAMMY COKER MD 11/30/18 11:16 Page 1 of 1 LOIDA DONG Progress Note Normal [facility] CBCon 11-28-2018 Basophils #/vol (Bld) 0.00 x10EE3/UL Normal 0.00 - 0.1 0 [facility] Comment on above: Performed By: #### 2 01110 #### [facility],[address] [place] [address] Basophils/100 WBC (Bld) 0.4 % Normal 0.0 - 2.0 [facility] Comment on above: Performed By: #### 2 12885 #### [facility],[address] [place] [address] CBC Normal [facility] Comment on above: Result Comment: CBC- COMPLETE BLOOD COUNT Performed By: #### 2 06031 #### [facility],[address] [place] [address] Eosinophils #/vol (Bld) 0.20 x10EE3/UL Normal 0.00 - 0 .50 [facility] Comment on above: Performed By: #### 2 67878 #### [place] [id number] Eosinophils/100 WBC (Bld) 2.7 % Normal 0.0 - 7.0 [facility] Comment on above: Performed By: #### 2 53386 #### [facility],[address] [place] [address] Erythrocyte distribution width Ratio (RBC) 13.6 % Normal 12.0 - 15.6 [facility] Comment on above: Performed By: #### 2 55437 #### [place] [address] Hematocrit Volume Fraction (Bld) 33.2 % Low 40.0 - 52.0 [facility] Comment on above: Performed By: #### 2 53862 #### [place] [address] Hemoglobin mass conc (Bld) 11.9 g/dL Low 13.0 - 17.5 [facility] Comment on above: Performed By: #### 2 41469 #### [place] [address] Lymphocytes #/vol (Bld) 1.60 x10EE3/UL Normal 0.80 - 2 .80 [facility] Comment on above: Performed By: #### 2 28386 #### [facility],[address] [place], [place] [id number] Lymphocytes/100 WBC (Bld) 19.7 % Low 20.0 - 45.0 [facility] Comment on above: Performed By: #### 2 81072 #### [place] [address] MANUAL DIFF N/A Normal [facility] Comment on above: Performed By: #### 2 15545 #### [place] [address] MCH Entitic mass (RBC) 30 pg Normal 27 - 33 [facility] Comment on above: Performed By: #### 2 70232 #### [facility],[address] [place] [address] MCHC mass conc (RBC) 36 X10 3 Normal 32 - 36 [facility] Comment on above: Performed By: #### 2 37962 #### [facility],[address] [place] [address] MCV Entitic volume (RBC) 83 fL Normal 81 - 98 [facility] Comment on above: Performed By: #### 2 27384 #### [facility],[address] [place] [address] Monocytes #/vol (Bld) 0.90 x10EE3/UL Normal 0.20 - 1.0 0 [facility] Comment on above: Performed By: #### 2 80386 #### [place] [address] MONOS % 11.3 % High 0.0 - 10.0 [facility] Comment on above: Performed By: #### 2 92998 #### [facility],[address] [place] [address] Morphology Interp Morgan (Bld) N/A Normal [facility] Comment on above: Performed By: #### 2 84040 #### [facility],[address] [place] [address] Neutrophils #/vol (Bld) 5.50 x10EE3/UL Normal 1.50 - 7 .10 [facility] Comment on above: Performed By: #### 2 99407 #### [place] [address] Neutrophils/100 WBC (Bld) 65.9 % Normal 46.0 - 76.0 [facility] Comment on above: Performed By: #### 2 99352 #### [facility],[address],[place] [address] Platelet mean volume Entitic volume (Bld) 7.9 fL Normal 6.4 - 10.5 [facility] Comment on above: Result Comment: AUTO MATED DIFFERENTIAL Performed By: #### 2 36216 #### [facility],[address] [place] [address] Platelets #/vol (Bld) 143 x10EE3/UL Low 150 - 450 [facility] Comment on above: Performed By: #### 2 16053 #### [facility],[address] [place] [address] RBC #/vol (Bld) 3.98 x 10EE6/UL Low 4.50 - 6.00 [facility] Comment on above: Performed By: #### 2 34883 #### [facility],[address] [place] [address] WBC #/vol (Bld) 8.3 x 10EE3/UL Normal 4.5 - 10.8 [facility] Comment on above: Performed By: #### 2 10448 #### [facility],[address] [place] [address] URINALYSISon 11-28-2018 Bilirubin mass conc Negative Normal NORMAL: NEGATIVE [facility] Comment on above: Performed By: #### 2 23119 #### [facility],[address] [place], [place] [id number] Blood Negative Normal NORMAL: NEGATIVE [facility] Comment on above: Performed By: #### 2 04898 #### [facility],[address] [place] [address] Clarity Nom (U) clear Normal NORMAL: CLEAR [facility] Comment on above: Performed By: #### 2 48310 #### [facility],[address] [place] [address] Color Nom (U) yellow Normal NORMAL: YELLOW [facility] Comment on above: Performed By: #### 2 34119 #### [facility],[address] [place], [place] [id number] Glucose mass conc NORM Normal NORMAL: NORMAL [facility] Comment on above: Performed By: #### 2 75256 #### [facility],[address] [place] [address] Ketone Negative Normal NORMAL: NEGATIVE [facility] Comment on above: Performed By: #### 2 19572 #### [facility],[address] [place] [address] Microscopic NOT INDICATED Normal [facility] Comment on above: Performed By: #### 2 29872 #### [facility],[address] [place] [address] Nitrite Ql (U) Negative Normal NORMAL: NEGATIVE [facility] Comment on above: Performed By: #### 2 99068 #### [facility],[address] [place] [address] pH (Bld) 6 Normal NORMAL: 5.0-8.0 [facility] Comment on above: Performed By: #### 2 31059 #### [facility],[address] [place] [address] Protein mass conc (U) Negative Normal NORMAL : NEGATIVE [facility] Comment on above: Performed By: #### 2 35462 #### [facility],[address] [place], [place] [id number] Sp [place] 1.010 Normal NORMAL: 1.010-1.030 [facility] Comment on above: Performed By: #### 2 34733 #### [facility],[address] [place], [place] [id number] Specimen type Nom (Spec) Void Normal [facility] Comment on above: Performed By: #### 2 84902 #### [facility],[address] [place], [place] [id number] Urobilinog NORM Normal NORMAL: NORMAL [facility] Comment on above: Performed By: #### 2 33450 #### [facility],[address] [place] [address] WBC #/vol (Bld) Negative Normal NORMAL: NEGATIVE [facility] Comment on above: Performed By: #### 2 68041 #### [facility],[address] [place] [address] BMP with eGFRon 11-27-2018 Age Reported 78 years Normal [facility] Comment on above: Performed By: #### 2 54569 #### [facility],[address] [place] [address] Anion gap molar conc 11 mmol/L Normal 10 - 20 [facility] Comment on above: Performed By: #### 2 14501 #### [facility],[address] [place] [address] Calcium mass conc 8.3 mg/dL Low 8.6 - 10.2 [facility] Comment on above: Performed By: #### 2 77033 #### [facility],[address] [place], [place] [id number] Chloride molar conc 105 mmol/L Normal 98 - 107 [facility] Comment on above: Performed By: #### 2 31056 #### [facility],[address] [place], [place] [address] CO2 molar conc 25.2 mmol/L Normal 21.0 - 31.0 [facility] Comment on above: Performed By: #### 2 89528 #### [facility],[address] [place], [place] [address] Creatinine mass conc 0.6 mg/dL Low 0.7 - 1.3 [facility] Comment on above: Performed By: #### 2 92391 #### [facility],[address] [place], [place] [address] GFR/1.73 sq M predicted among non-blacks MDRD vol rate/area (S/P/Bld) mL/min/{1.73_m2} Normal 60 - 999 [facility] Comment on above: Performed By: #### 2 41227 #### [facility],[address] [place] [address] Result Comment: ACCO RDING TO THE NATIONAL KIDNEY DISEASE EDUCATION PROGRAM(NKDE), A NORMAL eGFR IS A VALUE GREATER THAN OR EQUAL TO 60 ML/MIN/1.73 SQ METERS. CHRONIC KIDNEY DISEASE: <60mL/MIN/1.73 SQ METERS KIDNEY FAILURE: <15mL/MIN/1.73 SQ METERS THIS TEST SHOULD ONLY BE USED FOR PATIENTS 18 YEARS OF AGE AND OLDER. GFR/1.73 sq M predicted among non-blacks MDRD vol rate/area (S/P/Bld) Normal [facility] Comment on above: Result Comment: BASI C METABOLIC PANEL Performed By: #### 2 38816 #### [place] [address] Glucose mass conc 224 mg/dL High 74 - 106 [facility] Comment on above: Performed By: #### 2 38284 #### [place] [address] Potassium molar conc 3.7 mmol/L Normal 3.5 - 5.1 [facility] Comment on above: Performed By: #### 2 55830 #### [place] [address] Sodium molar conc 137 mmol/L Normal 136 - 145 [facility] Comment on above: Performed By: #### 2 91935 #### [place] [address] Urea nitrogen mass conc 18 mg/dL Normal 6 - 20 [facility] Comment on above: Performed By: #### 2 51751 #### [place] [id number] CBCon 11-27-2018 Basophils #/vol (Bld) 0.00 x10EE3/UL Normal 0.00 - 0.1 0 [facility] Comment on above: Performed By: #### 2 23948 #### [address],[place] [address] Basophils/100 WBC (Bld) 0.3 % Normal 0.0 - 2.0 [facility] Comment on above: Performed By: #### 2 31980 #### [facility],[address] [place], [place] [id number] CBC Normal [facility] Comment on above: Result Comment: CBC- COMPLETE BLOOD COUNT Performed By: #### 2 29939 #### [facility],[address] [place] [address] Eosinophils #/vol (Bld) 0.00 x10EE3/UL Normal 0.00 - 0 .50 [facility] Comment on above: Performed By: #### 2 97290 #### [facility],[address] [place], [place] [id number] Eosinophils/100 WBC (Bld) 0.1 % Normal 0.0 - 7.0 [facility] Comment on above: Performed By: #### 2 58924 #### [facility],[address] [place] [address] Erythrocyte distribution width Ratio (RBC) 13.5 % Normal 12.0 - 15.6 [facility] Comment on above: Performed By: #### 2 33111 #### [facility],[address] [place] [address] Hematocrit Volume Fraction (Bld) 37.0 % Low 40.0 - 52.0 [facility] Comment on above: Performed By: #### 2 56067 #### [facility],[address] [place], [place] [address] Hemoglobin mass conc (Bld) 13.2 g/dL Normal 13.0 - 17.5 [facility] Comment on above: Performed By: #### 2 11986 #### [facility],[address] [place] [address] Lymphocytes #/vol (Bld) 1.20 x10EE3/UL Normal 0.80 - 2 .80 [facility] Comment on above: Performed By: #### 2 86470 #### [facility],[address] [place], [place] [address] Lymphocytes/100 WBC (Bld) 11.8 % Low 20.0 - 45.0 [facility] Comment on above: Performed By: #### 2 91265 #### [facility],[address] [place] [address] MANUAL DIFF N/A Normal [facility] Comment on above: Performed By: #### 2 22346 #### [facility],[address] [place] [address] MCH Entitic mass (RBC) 30 pg Normal 27 - 33 [facility] Comment on above: Performed By: #### 2 67994 #### [facility],[address] [place] [address] MCHC mass conc (RBC) 36 X10 3 Normal 32 - 36 [facility] Comment on above: Performed By: #### 2 53512 #### [facility],[address] [place], [place] [address] MCV Entitic volume (RBC) 84 fL Normal 81 - 98 [facility] Comment on above: Performed By: #### 2 15696 #### [facility],[address] [place] [address] Monocytes #/vol (Bld) 0.80 x10EE3/UL Normal 0.20 - 1.0 0 [facility] Comment on above: Performed By: #### 2 26176 #### [facility],[address] [place] [address] MONOS % 7.6 % Normal 0.0 - 10.0 [facility] Comment on above: Performed By: #### 2 11816 #### [facility],[address] [place], [place] [id number] Morphology Interp Morgan (Bld) N/A Normal [facility] Comment on above: Performed By: #### 2 91573 #### [facility],[address] [place] [address] Neutrophils #/vol (Bld) 8.40 x10EE3/UL High 1.50 - 7 .10 [facility] Comment on above: Performed By: #### 2 76603 #### [facility],[address] [place] [address] Neutrophils/100 WBC (Bld) 80.2 % High 46.0 - 76.0 [facility] Comment on above: Performed By: #### 2 87002 #### [facility],[address] [place] [address] Platelet mean volume Entitic volume (Bld) 7.8 fL Normal 6.4 - 10.5 [facility] Comment on above: Result Comment: AUTO MATED DIFFERENTIAL Performed By: #### 2 01142 #### [address] [address] Platelets #/vol (Bld) 155 x10EE3/UL Normal 150 - 450 [facility] Comment on above: Performed By: #### 2 80932 #### [address] [address] RBC #/vol (Bld) 4.43 x 10EE6/UL Low 4.50 - 6.00 [facility] Comment on above: Performed By: #### 2 80340 #### [facility],[address] [place] [address] WBC #/vol (Bld) 10.5 x 10EE3/UL Normal 4.5 - 10.8 [facility] Comment on above: Performed By: #### 2 30954 #### [facility],[address] [place] [address] KNEE 2 VIEWS RTon 11-26-2018 KNEE 2 VIEWS [place] [address] Patient: LOIDA DONG Phone#: : [phone] Age: 78 Gender: M Pt. Type: In Account: [id number] Location: [id number] Ordering: CLARK JOHN Exam Date: 11/26/2018/15:03 Family Phys: ROGELIO CLAROS Charge Code: [id number] Physician: [place] Order #: [id number] DLP Dose#: PROCEDURE: X-RAY KNEE RT 2 VIEWS COMPARISON: None. INDICATIONS: Post Operation Evaluation FINDINGS: BONES: Total knee prosthesis is present. The adjacent bone architecture is intact. SOFT TISSUES: Postsurgical soft tissue air is present. EFFUSION: None visible. OTHER: Negative. CONCLUSION: 1. Total knee prosthesis. Dictated by: Evelyn Anaya MD on 11/26/2018 at 15:19 Approved by: Evelyn Anaya MD on 11/26/2018 at 15:19 Normal [facility] BMP with eGFRon 11-15-2018 Age Reported 78 years Normal [facility] Comment on above: Performed By: #### 2 [id number] #### [facility],[address] [place] [address] Anion gap molar conc 11 mmol/L Normal 10 - 20 [facility] Comment on above: Performed By: #### 2 [id number] #### [facility],[address] [place] [address] Calcium mass conc 9.7 mg/dL Normal 8.6 - 10.2 [facility] Comment on above: Performed By: #### 2 [id number] #### [facility],[address] [place], [place] [id number] Chloride molar conc 104 mmol/L Normal 98 - 107 [facility] Comment on above: Performed By: #### 2 [id number] #### [facility],[address] [place] [address]573 CO2 molar conc 27.5 mmol/L Normal 21.0 - 31.0 [facility] Comment on above: Performed By: #### 2 30020 #### [facility],[address] [place] [address] Creatinine mass conc 0.6 mg/dL Low 0.7 - 1.3 [facility] Comment on above: Performed By: #### 2 17961 #### [facility],[address] [place] [address]676 GFR/1.73 sq M predicted among non-blacks MDRD vol rate/area (S/P/Bld) Normal [facility] Comment on above: Result Comment: BASI C METABOLIC PANEL Performed By: #### 2 [id number] #### [facility],[address] [place], [place] [address] GFR/1.73 sq M predicted among non-blacks MDRD vol rate/area (S/P/Bld) mL/min/{1.73_m2} Normal 60 - 999 [facility] Comment on above: Performed By: #### 2 37695 #### [facility],[address] [place], [place] [id number] Result Comment: ACCO RDING TO THE NATIONAL KIDNEY DISEASE EDUCATION PROGRAM(NKDE), A NORMAL eGFR IS A VALUE GREATER THAN OR EQUAL TO 60 ML/MIN/1.73 SQ METERS. CHRONIC KIDNEY DISEASE: <60mL/MIN/1.73 SQ METERS KIDNEY FAILURE: <15mL/MIN/1.73 SQ METERS THIS TEST SHOULD ONLY BE USED FOR PATIENTS 18 YEARS OF AGE AND OLDER. Glucose mass conc 172 mg/dL High 74 - 106 [facility] Comment on above: Performed By: #### 2 50211 #### [facility],[address] [place] [address]95 Potassium molar conc 3.5 mmol/L Normal 3.5 - 5.1 [facility] Comment on above: Performed By: #### 2 94768 #### [facility],[address] [place] [address]13 Sodium molar conc 139 mmol/L Normal 136 - 145 [facility] Comment on above: Performed By: #### 2 20244 #### [facility],[address] [place], [place] [id number] Urea nitrogen mass conc 14 mg/dL Normal 6 - 20 [facility] Comment on above: Performed By: #### 2 81245 #### [facility],[address] [place] [address]41 CBCon 11-15-2018 Basophils #/vol (Bld) 0.00 x10EE3/UL Normal 0.00 - 0.1 0 [facility] Comment on above: Performed By: #### 2 41722 #### [facility],[address] [place] [address]77 Basophils/100 WBC (Bld) 0.7 % Normal 0.0 - 2.0 [facility] Comment on above: Performed By: #### 2 23749 #### [facility],[address] [place] [address] CBC Normal [facility] Comment on above: Result Comment: CBC- COMPLETE BLOOD COUNT Performed By: #### 2 46524 #### [facility],[address] [place] [address]756 Eosinophils #/vol (Bld) 0.10 x10EE3/UL Normal 0.00 - 0 .50 [facility] Comment on above: Performed By: #### 2 59270 #### [facility],[address] [place] [address]365 Eosinophils/100 WBC (Bld) 1.4 % Normal 0.0 - 7.0 [facility] Comment on above: Performed By: #### 2 39763 #### [facility],[address] [place] [address] Erythrocyte distribution width Ratio (RBC) 13.0 % Normal 12.0 - 15.6 [facility] Comment on above: Performed By: #### 2 75193 #### [facility],[address] [place] [address] 85539 Hematocrit Volume Fraction (Bld) 43.4 % Normal 40.0 - 52.0 [facility] Comment on above: Performed By: #### 2 50107 #### [facility],[address] [place] [address] Hemoglobin mass conc (Bld) 15.4 g/dL Normal 13.0 - 17.5 [facility] Comment on above: Performed By: #### 2 30585 #### [facility],[address] [place] [address] Lymphocytes #/vol (Bld) 2.40 x10EE3/UL Normal 0.80 - 2 .80 [facility] Comment on above: Performed By: #### 2 64974 #### [facility],[address] [place] [address] Lymphocytes/100 WBC (Bld) 47.6 % High 20.0 - 45.0 [facility] Comment on above: Performed By: #### 2 60073 #### [facility],[address] [place] [address] MANUAL DIFF N/A Normal [facility] Comment on above: Performed By: #### 2 96467 #### [facility],[address] [place] [address] MCH Entitic mass (RBC) 29 pg Normal 27 - 33 [facility] Comment on above: Performed By: #### 2 40339 #### [facility],[address] [place] [address] MCHC mass conc (RBC) 36 X10 3 Normal 32 - 36 [facility] Comment on above: Performed By: #### 2 96434 #### [place] [address] MCV Entitic volume (RBC) 83 fL Normal 81 - 98 [facility] Comment on above: Performed By: #### 2 62531 #### [facility],[address] [place] [address] Monocytes #/vol (Bld) 0.50 x10EE3/UL Normal 0.20 - 1.0 0 [facility] Comment on above: Performed By: #### 2 95336 #### [facility],[address] [place] [address] MONOS % 9.5 % Normal 0.0 - 10.0 [facility] Comment on above: Performed By: #### 2 51580 #### [facility],[address] [place] [address] Morphology Interp Morgan (Bld) N/A Normal [facility] Comment on above: Performed By: #### 2 33128 #### [place] [address] Neutrophils #/vol (Bld) 2.00 x10EE3/UL Normal 1.50 - 7 .10 [facility] Comment on above: Performed By: #### 2 70225 #### [place] [address] Neutrophils/100 WBC (Bld) 40.8 % Low 46.0 - 76.0 [facility] Comment on above: Performed By: #### 2 33259 #### [place] [address] Platelet mean volume Entitic volume (Bld) 8.0 fL Normal 6.4 - 10.5 [facility] Comment on above: Result Comment: AUTO MATED DIFFERENTIAL Performed By: #### 2 53864 #### [place] [address] Platelets #/vol (Bld) 186 x10EE3/UL Normal 150 - 450 [facility] Comment on above: Performed By: #### 2 93993 #### [place] [address] RBC #/vol (Bld) 5.23 x 10EE6/UL Normal 4.50 - 6.00 [facility] Comment on above: Performed By: #### 2 85509 #### [place] [address],[place] [address] WBC #/vol (Bld) 5.0 x 10EE3/UL Normal 4.5 - 10.8 [facility] Comment on above: Performed By: #### 2 76093 #### [facility],[address] [place] [address] LOWER EXTREMITY RT WOon 0 10-10-2018 CT LOWER EXTREMITY RT [place] [id number] Patient: LOIDA DONG Phone#: : [phone] Age: 78 Gender: M Pt. Type: Out Account: [id number] Location: Ordering: [facility] Exam Date: 10/10/2018/11:17 Family Phys: TAMMY COKER Charge Code: 804226 Physician: [place] Order #: [id number] DLP Dose#: PROCEDURE: CT LOWER EXTREMITY RT WO CONTRAST COMPARISON: None. INDICATIONS: Conformis. TECHNIQUE: Multi-planar CT images were created without intravenous contrast. All CT scans at this facility use dose modulation, iterative reconstruction, and/or weight based dosing when appropriate to reduce radiation dose to as low as reasonably achievable. IV CONTRAST: No IV contrast used,0ml TOTAL DOSE: 36.9 CTDIvol(mGy) FINDINGS: BONES: Subchondral cyst formation seen in the right humeral head. There is spurring of the undersurface of the patella and the femoral trochlea. There is spurring of the medial and lateral femoral condyles and tibial plateau. There is severe medial compartment joint space loss. A fabella is present. An os trigonum at the level of the ankle is incidentally noted. SOFT TISSUES: Prostate indents the base of the bladder and contains calcifications. 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 EFFUSION: There is a small suprapatellar joint effusion. OTHER: Negative. 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 Suprapatellar joint effusion. Continued Report - Page 2 of 2 Patient: LOIDA DONG Phone#: : [phone] Age: 78 Gender: M Pt. Type: Out Account: [id number] Location: Ordering: CL[facility] JOHN Exam Date: 10/10/2018/11:17 Family Phys: TAMMY COKER Charge Code: [id number] Physician: [place] Order #: [id number] DLP Dose#: Dictated by: Litzy Vargas MD on 10/10/2018 at 13:50 Approved by: Litzy Vargas MD on 10/10/2018 at 13:50 Normal [facility] Vital Signs Date Time Vital Sign Value Performing Clinician Jaci grimes 03-18-2025 14:01-0400 Body height 185.[address] Rogelio Claros DO Work Phone: [facility] 03-18-2025 14:01-0400 Diastolic blood pressure 70 mm[Hg] Dr. Rogelio Claros DO Work Phone: [facility] 03-18-2025 14:01-0400 Systolic blood pressure 142 mm[Hg] Dr. Rogelio Claros DO Work Phone: [facility] 03-18-2025 13:58-0400 Body mass index (BMI) [Ratio] 29 kg/m2 Dr. Rogelio Claros DO Work Phone: [facility] 03-18-2025 13:58-0400 Body weight 99.[address] Rogelio Claros DO Work Phone: [facility] 03-18-2025 13:58-0400 Heart rate 67 /min Dr. Rogelio Claros DO Work Phone: [facility] 03-18-2025 13:58-0400 Respiratory rate 18 /min Dr. Rogelio Claros DO Work Phone: [facility] 03-18-2025 13:58-0400 SaO2% (BldA) [Mass fraction] 98 % Dr. Rogelio Claros DO Work Phone: [facility] 07-26-2023 13:55-0500 Body temperature 98.3 [degF] Dr. Rogelio Claros Work Phone: [facility] 07-26-2023 13:55-0500 Diastolic blood pressure 76 mm[Hg] Dr. Rogelio Claros Work Phone: [facility] 07-26-2023 13:55-0500 Heart rate 70 /min Dr. Rogelio Claros Work Phone: [facility] 07-26-2023 13:55-0500 Respiratory rate 18 /min Dr. Rogelio Claros Work Phone: [facility] 07-26-2023 13:55-0500 SaO2% (BldA) [Mass fraction] 97 % Dr. Rogelio Claros Work Phone: [facility] 07-26-2023 13:55-0500 Systolic blood pressure 128 mm[Hg] Dr. Rogelio Claros Work Phone: [facility] 07-25-2023 15:32-0500 Body height 185.[address] Rogelio Claros Work Phone: [facility] 07-25-2023 15:32-0500 Body mass index (BMI) [Ratio] 29.1 kg/m2 Dr. Rogelio Claros Work Phone: [facility] 07-25-2023 15:32-0500 Body weight 100.[address] Rogelio Claros Work Phone: [facility] 07-25-2023 12:54-0500 Inhaled oxygen flow rate 4 L/min Dr. Rogelio Claros Work Phone: [facility] 06-29-2023 13:05-0400 Body mass index (BMI) [Ratio] 30 kg/m2 Dr. Rogelio Claros Work Phone: [facility] 06-29-2023 13:05-0400 Body weight 103.[address] Rogelio Claros Work Phone: [facility] 06-29-2023 13:05-0400 Diastolic blood pressure 72 mm[Hg] Dr. Rogelio Claros Work Phone: [facility] 06-29-2023 13:05-0400 Heart rate 58 /min Dr. Rogelio Claros Work Phone: [facility] 06-29-2023 13:05-0400 Respiratory rate 16 /min Dr. Rogelio Claros Work Phone: [facility] 06-29-2023 13:05-0400 Systolic blood pressure 128 mm[Hg] Dr. Rogelio Claros Work Phone: [facility] 06-20-2023 12:22-0400 Body temperature 98 [degF] Dr. Rogelio Claros Work Phone: [facility] 06-20-2023 12:22-0400 Diastolic blood pressure 50 mm[Hg] Dr. Rogelio Claros Work Phone: [facility] 06-20-2023 12:22-0400 Respiratory rate 13 /min Dr. Rogelio Claros Work Phone: [facility] 06-20-2023 12:22-0400 Systolic blood pressure 120 mm[Hg] Dr. Rogelio Claros Work Phone: [facility] 06-20-2023 08:03-0400 Heart rate 60 /min Dr. Rogelio Claros Work Phone: [facility] 06-20-2023 03:05-0400 SaO2% (BldA) [Mass fraction] 99 % Dr. Rogelio Claros Work Phone: [facility] 06-19-2023 14:44-0400 Body mass index (BMI) [Ratio] 29.8 kg/m2 Dr. Rogelio Claros Work Phone: [facility] 06-19-2023 14:44-0400 Body weight 102.[address] Rogelio Claros Work Phone: [facility] 05-18-2023 10:11-0400 Body height 185.[address] Rogelio Claros Work Phone: [facility] 05-18-2023 10:11-0400 Body mass index (BMI) [Ratio] 29.9 kg/m2 Dr. Rogelio Claros Work Phone: [facility] 05-18-2023 10:11-0400 Body weight 102.[address] Rogelio Claros Work Phone: [facility] 05-18-2023 10:11-0400 Diastolic blood pressure 74 mm[Hg] Dr. Rogelio Claros Work Phone: [facility] 05-18-2023 10:11-0400 Heart rate 69 /min Dr. Rogelio Claros Work Phone: [facility] 05-18-2023 10:11-0400 Respiratory rate 16 /min Dr. Rogelio Claros Work Phone: [facility] 05-18-2023 10:11-0400 Systolic blood pressure 157 mm[Hg] Dr. Rogelio Claros Work Phone: [facility] 01-20-2023 13:42-0400 Body height 185.[address] Rogelio Claros Work Phone: [facility] Encounters Encounter Date Encounter Type Care Provider Facility Start: 03-18-2025 End: 03-18-2025 Patient encounter procedure [facility] BLANK [facility] Work Phone: Start: 03-18-2025 End: 03-18-[address] Rogelio Claros DO Work Phone: -[facility] Start: 12-27-2024 End: 12-27-2024 ambulatory Jonh Gracia Facility:[facility] Start: 12-27-2024 End: 12-27-[address] Jonh Gracia MD -[facility] Work Phone: Start: 11-11-2024 End: 11-11-2024 ambulatory Greg Nam Facility:[facility] Start: 10-28-2024 ambulatory Rogelio Hyacinth Facility :[facility] Start: 10-28-2024 End: 10-28-2024 ambulatory Greg Cyril Facility:[facility] Start: 10-14-2024 End: 10-14-2024 ambulatory Greg Cyril Facility:[facility] Start: 09-27-2024 End: 09-27-2024 ambulatory Napoleon Basil Facility:[facility] Start: 06-28-2024 End: 06-28-2024 [facility]ulatory [facility] [place] [facility] Start: 07-26-2023 Non-patient / Non-visit Dr. Gilda Claros Work Phone: [facility] Start: 07-25-2023 Non-patient / Non-visit Dr. Gilda Claros Work Phone: [facility] Work Phone: Start: 07-25-2023 Non-patient / Non-visit Dr. Gilda Claros Work Phone: [facility] Start: 07-25-2023 End: 07-26-2023 Evaluation and management of inpatient Dr. Rogelio Claros Work Phone: [facility]Medical Surgical 3 Work Phone: Start: 07-25-2023 End: 07-26-[address] Rogelio Claros Work Phone: [facility] Work Phone: Start: 07-24-2023 End: 07-24-[address] Rogelio Claros Work Phone: [facility] Work Phone: Start: 07-24-2023 Non-patient / Non-visit Dr. Gilda Claros Work Phone: [facility] Start: 07-19-2023 End: 07-19-[address] Rogelio Claros Work Phone: [facility] Work Phone: Start: 06-29-2023 End: 06-29-2023 Admission to same day surgery center Dr. Rogelio Claros Work Phone: [facility] Start: 06-29-2023 End: 06-29-[address] Rogelio Claros Work Phone: [facility] Work Phone: Start: 06-20-2023 End: 06-20-[address] Rogelio Claros Work Phone: [facility] Work Phone: Start: 06-20-2023 Non-patient / Non-visit Dr. Gilda Claros Work Phone: [facility] Start: 06-19-2023 End: 06-20-2023 Evaluation and management of inpatient Dr. Rogelio Claros Work Phone: [facility]Progressive Care Unit Work Phone: Start: 06-13-2023 Non-patient / Non-visit Dr. Gilda Claros Work Phone: [facility] Start: 06-12-2023 End: 06-12-[address] Rogelio Claros Work Phone: [facility] Work Phone: Start: 06-08-2023 Non-patient / Non-visit Dr. Gilda Claros Work Phone: [facility] Start: 06-07-2023 Non-patient / Non-visit Dr. Gilda Claros Work Phone: [facility] Work Phone: Start: 06-06-2023 Non-patient / Non-visit Dr. Gilda Claros Work Phone: [facility] Work Phone: Start: 06-05-2023 End: 06-05-[address] Rogelio Claros Work Phone: [facility] Work Phone: Start: 06-02-2023 Non-patient / Non-visit Dr. Gilda Claros Work Phone: [facility] Start: 06-02-2023 End: 06-02-[address] Rogelio Claros Work Phone: [facility]Cardiov[facility]cul[facility] Work Phone: Start: 05-30-2023 End: 05-30-[address] Rogelio Claros Work Phone: [facility] Work Phone: Start: 05-30-2023 End: 05-30-[address] Rogelio Claros Work Phone: [facility]-Pulmonary Services/Neurology Work Phone: Start: 05-18-2023 End: 05-18-[address] Rogelio Claros Work Phone: [facility]-Laboratory Work Phone: Start: 05-18-2023 End: 05-18-2023 Admission to same day surgery center Dr. Rogelio Claros Work Phone: [facility] Start: 05-18-2023 End: 05-18-[address] Rogelio Claros Work Phone: [facility] Work Phone: Start: 05-11-[address] Maxx Claros Work Phone: [facility] Start: 04-18-2023 End: 04-18-[address] Rogelio Claros Work Phone: [facility] Work Phone: Start: 04-18-2023 End: 04-18-[address] Rogelio Claros Work Phone: [facility]-Pre-Admission Testing Work Phone: Start: 04-18-2023 End: 04-18-2023 Non-patient / Non-visit Dr. Rogelio Claros Work Phone: [facility] Work Phone: Start: 04-14-2023 Telephone encounter Gerry baez MD Work Phone: Hematology/Oncology Comment on above: New Patient Start: 04-05-2023 End: 04-05-[address] Rogelio Claros Work Phone: [facility] Work Phone: Start: 04-05-2023 End: 04-05-[address] Rogelio Claros Work Phone: [facility]Labor[facility] Work Phone: Start: 03-22-2023 End: 03-22-[address] Rogelio Claros Work Phone: [facility] Work Phone: Start: 03-22-2023 End: 03-22-[address] Rogelio Claros Work Phone: [facility]-Ultrasound, [facility] Work Phone: Start: 03-10-2023 End: 03-10-[address] Rogelio Claros Work Phone: [facility] Work Phone: Start: 02-09-2023 End: 02-09-[address] Rogelio Claros Work Phone: [facility] Work Phone: Start: 02-09-2023 End: 02-09-[address] Rogelio Claros Work Phone: [facility] Start: 01-27-2023 End: 01-27-[address] Rogelio Claros Work Phone: [facility] Start: 01-13-2023 End: 01-18-2023 ambulatory ROGELIO CLAROS DO Facility:[facility] Start: 01-13-2023 End: 01-17-2023 Outreach Lab ROGELIO CLAROS DO [facility] Start: 01-11-2023 End: 01-12-2023 ambulatory ROGELIO HYACINTH DO Facility:[facility] Start: 01-09-2023 End: 01-10-2023 ambulatory ROGELIO HYACINTH DO Facility:[facility] Start: 01-09-2023 End: 01-09-2023 Patient encounter procedure ROGELIO BALTAZARY DO [facility] Start: 07-05-2022 End: 07-06-2022 ambulatory ROGELIO HYACINTH DO Facility:[facility] Start: 12-06-2021 End: 12-06-2021 Patient encounter procedure ROGELIO CLAROS DO [facility] Start: 06-07-2021 End: 01-19-2023 Patient encounter procedure ROGELIO CLAROS DO [facility] Start: 11-28-2018 End: 11-28-2018 Evaluation and management of inpatient CLARK JOHN [facility] Start: 11-15-2018 Encounter for other preprocedural examination DEMETRIUS COKER [facility] Start: 11-15-2018 End: 11-15-2018 Patient encounter procedure CLARK JOHN [facility] Start: 10-10-2018 End: 10-10-2018 Patient encounter procedure TAMMY HERRERA [facility] Encounter for other preprocedural examination [facility] Procedures Date Procedure Procedure Detail Performing Clinician Start: 07-25-[address] Ellie Claros Work Phone: Start: 07-25-2023 End: 07-25-[address] Rogelio Claros Work Phone: Start: 07-25-2023 Laminectomy,Lumbar M icro Decompression (Not Applicable) Dr. Rogelio Claros Work Phone: Start: 06-20-2023 Plain chest X-ray Dr. Maxx Claros Work Phone: Start: 06-12-2023 Plain chest X-ray Dr. Maxx Claros Work Phone: Start: 06-02-2023 Cardiovascular stres s test using pharmacologic stress agent Dr. Rogelio Claros Work Phone: Start: 04-18-2023 Nasal Screen MRSA/MSSA Dr. Rogelio Claros Work Phone: Start: 03-22-[address] Gilda Claros Work Phone: Start: 02-09-2023 MRI of lumbar spine Dr. Rogelio Claros Work Phone: Start: 11-28-2018 Replacement of Right Knee Joint with Synthetic Substitute, Cemented, Open Approach TAMMY COKER Start: 11-28-2018 Urinalysis TAMMY CRUZR AN Comment on above: Result Comment: URIN ALYSIS Performed By: #### 2 [id number] #### [facility],[address] [place] [address] Arthroplasty of knee ROGELIO CLAROS DO Comment on above: x 2 Cholecystectomy ROGELIO LYN DO Hemorrhoidectomy ROGELIO SOTO DO Plan of Treatment Date Care Activity Detail Author Start: 07-26-2023 Patient discharge [facility] Start: 07-25-2023 Care regimes management [facility] Start: 07-25-2023 Notification of physician [facility] Start: 07-25-2023 [facility] Start: 07-25-2023 Following clinical pathway protocol [facility] Start: 07-25-2023 Application of intermittent pneumatic compression device [facility] Start: 07-25-2023 Catheterization of vein [facility] Start: 07-25-2023 Consultation [facility] Start: 07-25-2023 Following clinical pathway protocol [facility] Start: 07-25-2023 Incentive spirometry [facility] Start: 07-25-2023 Measuring intake and output [facility] Start: 07-25-2023 Neurovascular assessment [facility] Start: 07-25-2023 Oxygen therapy [facility] Start: 07-25-2023 Patient education [facility] Start: 07-25-2023 Procedure discontinued [facility] Start: 07-25-2023 Provision of activity privileges [facility] Start: 07-25-2023 Recommendation to continue with treatment [facility] Start: 07-25-2023 Referral to service [facility] Start: 07-25-2023 Taking patient vital signs [facility] Start: 07-25-2023 [facility] Start: 07-25-2023 Admission procedure [facility] Start: 06-20-2023 Patient discharge [facility] Start: 06-19-2023 Following clinical pathway protocol [facility] Start: 06-19-2023 Bedrest [facility] Start: 06-19-2023 Elevation of head of bed [facility] Start: 06-19-2023 Admission procedure [facility] Start: 06-19-2023 Taking patient vital signs [facility] Start: 06-19-2023 Wound care [facility] Start: 06-19-2023 End: 06-19-2023 [facility] Start: 06-12-2023 Laminectomy,Lumbar Micro Decompression (Not Applicable) Laminectomy,Lumbar Micro Decompression (Not Applicable) [facility] Start: 05-19-2023 Influenza vaccination Influenza Vaccine (#1) [facility] Start: 04-05-2023 Serum immunofixation [facility] Start: 04-05-2023 Urine protein electrophoresis [facility] Start: 09-18-2022 Advance Directive Discussion Advance Directive Discussion [facility] Start: 09-18-2022 Depression Assessment Depression Assessment [facility] Start: 07-07-2015 Diabetes Screening Diabetes Screening [facility] Start: 2005 Pneumococcal Vaccine: 65+ (1 - PCV) Pneumococcal Vaccine: 65+ (1 - PCV) [facility] Start: 2000 RSV Vaccine (1 - 1-dose 60+ series) RSV Vaccine (1 - 1-dose 60+ series) [facility] Start: 1990 Shingrix Vaccine (1 of 2) Shingrix Vaccine (1 of 2) [facility] Start: 1959 Urine microalbumin profile DTaP,Tdap,Td Vaccine (1 - Tdap) [facility] Start: 02-18-1941 Covid-19 Vaccine (#1) Covid-19 Vaccine (#1) [facility] Albumin/Globulin [Ma ss Ratio] in Serum or Plasma by Electrophoresis [facility] Basic metabolic 2008 panel with ionized calcium - Serum or Plasma [facility] Electrophoresis: albumin [facility] Electrophoresis: [id number] [facility] Electrophoresis: [id number]-[id number] [facility] Electrophoresis: tatiana ma globulin [facility] Fluid sample globuli n level [facility] Globulin measurement [facility] IgA [Mass/volume] in Serum or Plasma [facility] IgG [Mass/volume] in Serum or Plasma [facility] IgM [Mass/volume] in Serum or Plasma [facility] Measurement of monoc lonal protein concentration [facility] Patient referral [facility] Work Phone: Protein [Mass/volume ] in Urine [facility] Protein electrophore sis panel - Serum or Plasma [facility] Protein measurement, urine [facility] Serum protein electrophoresis [facility] Total globulins measurement [facility] Urine albumin measurement [facility] Immunizations Immunization Date Immunization Notes Care Provider Selena carlton 07-30-2021 COVID-19, mRNA, LNP- S, PF, 100 mcg or 50 mcg dose; Translations: [Moderna COVID-19 Vaccine] ROGELIO CLAROS DO [facility] 11-10-2020 COVID-19, mRNA, LNP- S, PF, 100 mcg or 50 mcg dose; Translations: [Moderna COVID-19 Vaccine] ROGELIO CLAROS DO [facility] 10-15-2020 SARS-CoV-2 (COVID-19 ) [id number] vaccine ROGELIO CLAROS DO [facility] Payers Date Payer Category Payer Self-pay [id number] 2022 Unknown PRIMETIME [employer] HMO POS [id number] 2022-Present [phone] [address] [place] [address] HMO [id number] 2022 Unknown [id number] 2010 Unknown [id number] 1940 Unknown [id number] [id number] 1940 Unknown [id number] 2.840.1.095700.3.579.2.651 1940 Unknown [id number] 2.840.1.430991.3.579.2.651 1940 Unknown [id number] [id number] 1940 Unknown [id number] 2.16.840.1.492997.3.579.2.627 1940 Unknown [id number] [id number] 1940 Unknown [id number] [id number] Medicare [id number] Unknown [id number] [id number] Unknown [id number] [id number] Unknown [id number] [id number] Unknown [id number] 2.16.840.1.132171.3.579.2.462 Unknown [id number] 2.16.840.1.017651.3.579.2.462 Unknown [id number] [id number] Unknown [id number] [id number] Unknown [id number] [id number] Unknown [id number] [id number] Social History Date Type Detail Facility Start: 09-08-2020 Never smoked t obacco (finding) [facility] Start: 1940 Sex Assigned At Male [facility] Start: 01-27-2023 End: 07-19-2023 Tobacco smoking status [facility] Unknown if ever smoked [facility] Start: 01-24-2017 End: 10-18-2023 Tobacco smoking status NHIS Ex-smoker [facility] History of tobacco use Current smoker [facility] Start: 01-24-2017 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 Start: 09-08-2020 See Instructions , Dispense UltraFine lancets, #100, UAD daily to test blood sugar, # 100 EA, 3 Refill(s), Pharmacy: [address], Diabetes mellitus, type 2, 186, cm, 09/08/20 16:50:00 EST, Height, 102.9, kg, 09/08/20 16:47:00 EST, Dosing... Start: 09-08-2020 See Instructions , Dispense glucose test strips, #100, UAD daily to test blood sugar, # 100 EA, 3 Refill(s), Pharmacy: [address], Diabetes mellitus, type 2, 186, cm, 09/08/20 16:50:00 EST, Height, 102.9, kg, 09/08/20 16:47:00 EST, Dosi... Start: 09-08-2020 See Instructions , Dispense UltraFine lancets, #100, UAD daily to test blood sugar, # 100 EA, 3 Refill(s), Pharmacy: [address], Diabetes mellitus, type 2, 186, cm, 09/08/20 16:50:00 EST, Height, 102.9, kg, 09/08/20 16:47:00 EST, Dosing... Start: 09-08-2020 See Instructions , Dispense glucose test strips, #100, UAD daily to test blood sugar, # 100 EA, 3 Refill(s), Pharmacy: [address], Diabetes mellitus, type 2, 186, cm, 09/08/20 16:50:00 EST, Height, 102.9, kg, 09/08/20 16:47:00 EST, Dosi... Start: 09-08-2020 See Instructions , Dispense UltraFine lancets, #100, UAD daily to test blood sugar, # 100 EA, 3 Refill(s), Pharmacy: [address], Diabetes mellitus, type 2, 186, cm, 09/08/20 16:50:00 EST, Height, 102.9, kg, 09/08/20 16:47:00 EST, Dosing... Start: 09-08-2020 ([id number]) Endocardial paci ng lead ()[id number] FDA Start: 06-19-2023 ([id number]) Endocardial paci ng lead ()[id number] FDA Start: 06-19-2023 ([id number]) Dual-chamber implantable pacemaker, rate-responsive ()[id number] FDA Start: 06-19-2023 PATCH,AMNION 4x4CM FDA Start: 07-25-2023 PATCH,AMNION 4x4CM FDA Start: 07-25-2023 Goals Date Patient Goal Desired Activity /State Functional Status Date Assessment Result Facility 07-26-2023 Functional status Ambulates [facility] Work Phone: 06-20-2023 Functional status Activity Abili ty Bedrest;Post Op [facility] Work Phone: Mental Status Date Assessment Result Facility 07-26-2023 Cognitive function Level Of Cons ciousness Awake;Alert;Appropriate;Follow s Commands [facility] Work Phone: 07-26-2023 Cognitive function Voice/Name [facility] Work Phone: 06-20-2023 Cognitive function Voice/Name [facility] Work Phone: Clinical Notes 06-08-2023 to 07-26-2023 Note Date & Type Note Facility 07-26-2023 Discharge summary Note Date/Time July 26, 2023 1:49pm [facility] Medical Records Department [address] [place] [address] Discharge Summary 07/26/23 1347 MR#: [id number] Acct: [id number] Name: LOIDA DONG Rep #:[id number] : 1940 82 From: Bull Carvajal PCP: Dr. Rogelio Claros, DO Status:ADM LUCINA Location: [place] [address] Providers Date of Admission: 07/25/23 Primary Care Physician: Dr. Rogelio Claros DO Attending Physician: This is discharge me on Loida Dong. This patient was admitted yesterday morning. He underwent lumbar laminectomy at the L4-5 level. He is doing well postoperatively. 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 His dressing is dry. Neurologically he is intact. He is ready for discharge. He has been walking around the hospital with a walker and doing very well. I gave him directions regarding his activities at home. He already has an appointment to see me in a couple of weeks. He has been sent home on oxycodone acetaminophen. This is the end of discharge summary on Debra. This is Dr. York dictating. Consultations 07/25/23 12:29 Consult: Hospitalist Routine Consulting Provider: Daryl Moy Reason for Consult: Medical Management EMERGENT Consult: No MD Notified: Yes Date Notified: 07/25/23 Time Notified: 15:37 Method of Notification: Text Reason For Visit: Lumbar laminectomy decompression L4 Diagnosis Discharge Diagnosis (1) Status post laminectomy: Status: Acute Code(s): Z98.890 - Other specified postprocedural states Medications at Discharge Home Medications atorvastatin 20 mg tablet 20 mg PO DAILY cholesterol 02/16/22 esomeprazole magnesium 40 mg capsule,delayed release 40 mg PO DAILY reflux 02/16/22 glipizide 5 mg tablet, extended release 24 hr 5 mg PO DAILY diabetes 02/16/22 hydrochlorothiazide 25 mg tablet 25 mg PO DAILY diuretic 02/16/22 pioglitazone 30 mg tablet 30 mg PO DAILY diabetes 02/16/22 ascorbic acid (vitamin C) 500 mg tablet,extended release (C-500) 500 mg PO DAILYvitamin 04/10/23 cholecalciferol (vitamin D3) 25 mcg (1,000 unit) capsule (Vitamin D3) 25 mcg PO DAILY vitamin 04/10/23 vitamins A,C,O-uenr-quvigv 4,296 mcg-226 mg-90 mg capsule (PreserVision AREDS) 1cap PO BID vitamin 04/10/23 omega-3 fatty acids 1,000 mg capsule (Super [place]-3) 1,000 mg PO DAILY supplement 05/11/23 coenzyme Q10 100 mg capsule (Co Q-10) 100 mg PO DAILY supplement 05/18/23 flaxseed oil 1,000 mg capsule 1,000 mg PO DAILY supplement 05/18/23 magnesium glycinate-mag oxide 360 mg PO DAILY supplement 05/18/23 mecobalamin (vitamin B12) 1,000 mcg chewable tablet 1,000 mcg PO DAILY vitamin 05/18/23 potassium chloride 8 mEq capsule,extended release 8 meq PO DAILY supplement 05/18/23 pyridoxine (vitamin B6) 100 mg tablet 100 mg PO DAILY vitamin 05/18/23 valsartan 320 mg tablet 320 mg PO DAILY #30 tabs 06/29/23 carvedilol 25 mg tablet 50 mg PO BID 07/13/23 oxycodone-acetaminophen 5 mg-325 mg tablet 1 tab PO Q6H PRN pain 10 days #40 tabs 07/26/23 Weight / BMI Weight Weight: 221 lb Body Mass Index (BMI) 29.1 ABG / Lab / Microbiology Data 07/26/23 07:00 07/26/23 07:00 Laboratory: Laboratory Results - last 24 hr 07/25/23 20:40: POC Glucose 216 H 07/26/23 06:34: POC Glucose 174 H 07/26/23 07:00: WBC 7.1, RBC 4.32 L, Hgb 12.9 L, Hct 39.2 L, MCV 90.7, MCH 29.9,MCHC 32.9, RDW Std Deviation 43.8, RDW Coeff of Miguel 13.2, Plt Count 122 L, MPV 10.3, Immature Gran % (Auto) 0.600, Neut % (Auto) 72.9 H, Lymph % (Auto) 13.3 L,[place] % (Auto) 10.8 H, Eos % (Auto) 2.1, Baso % (Auto) 0.3, Absolute Neuts (auto)5.2, Absolute Lymphs (auto) 0.95, Nucleated RBC % 0, Sodium 135 L, Potassium 3.4L, Chloride 102, Carbon Dioxide 31.0, Anion Gap 2 L, BUN 21 H, Creatinine 0.72, Estim Creat Clear Calc 64.36, Est GFR (MDRD) Af Amer 134, Est GFR (MDRD) Non-Af 111, BUN/Creatinine Ratio 29.2 H, Glucose 184 H, Calcium 8.6 07/26/23 11:47: POC Glucose 168 H Radiography Diagnostic Testing: Radiology Impression Spine X-Ray 07/25/23 09:25 IMPRESSION: The localization instrument is seen posterior to the L5-S1 disc space level. Electronically Signed: Artur Baldwin MD at 14:23 EST , D/C Instructions May shower in (days): 5 Meaningful Use Info Meaningful Use Diagnoses (Choose all that apply): None applicable Discharge Plan Admission Admit Date/Time: 07/25/23 07:38 Primary Reason for Your Visit: back surgery Attending Provider: Bull York Primary Care Provider: Rogelio Claros Consulting Providers: Daryl Moy Mark Discharge Orders/Prescriptions Prescriptions: No Action hydrochlorothiazide 25 mg tablet 25 mg PO DAILY Patient Comments: take 1 tablet by mouth once daily pioglitazone 30 mg tablet 30 mg PO DAILY atorvastatin 20 mg tablet 20 mg PO DAILY glipizide 5 mg tablet extended release 24hr 5 mg PO DAILY esomeprazole magnesium 40 mg capsule,delayed release(DR/EC) 40 mg PO DAILY potassium chloride 8 mEq capsule, extended release 8 meq PO DAILY Patient Comments: take 2 capsules by mouth once daily with food omega-3 fatty acids [Super [place]-3] 1,000 mg capsule 1,000 mg PO DAILY mecobalamin (vitamin B12) 1,000 mcg tablet,chewable 1,000 mcg PO DAILY pyridoxine (vitamin B6) 100 mg tablet 100 mg PO DAILY flaxseed oil 1,000 mg capsule 1,000 mg PO DAILY Rx Instructions: administer with a meal magnesium glycinate-mag oxide 120 mg magnesium capsule 360 mg PO DAILY valsartan 320 mg tablet 320 mg PO DAILY Qty: 30 11RF cholecalciferol (vitamin D3) [Vitamin D3] 25 mcg (1,000 unit) capsule 25 mcg PO DAILY PreserVision AREDS 4,296 mcg-226 mg-90 mg capsule 1 cap PO BID ascorbic acid (vitamin C) [C-500] 500 mg tablet extended release 500 mg PO DAILY coenzyme Q10 [Co Q-10] 100 mg capsule 100 mg PO DAILY carvedilol 25 mg tablet 50 mg PO BID Rx Instructions: must administer with a meal/food oxycodone-acetaminophen 5-325 mg tablet 1 tab PO Q6H PRN (Reason: pain) 10 Days Qty: 40 0RF Referrals / Follow Up: Rogelio Claros DO [Primary Care Provider] - Disposition Disposition (needs filled in before D/C Order can be placed): Home, Self Care 07/26/23 1349 <Electronically signed by Bull York DO> Cosigner Signature (if applicable): CC: Dr. Bull York DO; Dr. Rogelio Claros DO~ Signed [facility] Work Phone: 1(888) 167-436211-07-2023 Progress note Author Daryl Moy [facility] July 25, 2023 6:17pm Note Date/Time July 25, 2023 5 :47pm [facility] Medical Records Department [address] [place] [address] Progress Note - Hospitalist 07/25/23 1741 MR#: [id number] Acct: [id number] Name: LOIDA DONG Rep #:[id number] : 1940 82 From: Daryl oleary MD PCP: Dr. Rogelio Claros DO Status:ADM LUCINA Location: CT3 [id number] Subjective Subjective 82-year-old male presents to the hospital for elective lumbar laminectomy decompression of L4-5 due to spinal stenosis. Doing well after surgery, vital signs are stable and pain is controlled Objective Data Objective Data Vital Signs: Vital Signs Temp Pulse Resp BP Pulse Ox O2 Del Method O2 Flow Rate 98.2 F 56 L 18 145/104 H 98 Room Air 4 07/25/23 17:25 07/25/23 17:25 07/25/23 17:25 07/25/23 17:25 07/25/23 17:25 07/25/23 17:36 07/25/23 12:54 Oxygen Flow Rate (L/min) 4 Oxygen Delivery Method Room Air Weight: 221 lb Body Mass Index (BMI) 29.1 Intake & Output: Intake and Output for Last 24 Hours 07/24/23 07/25/23 07/26/23 03:59 03:59 03:59 Intake Total 2264 / 2264 Output Total 400 / 400 Balance 1864 / 1864 Lab / Micro Data Labs: Laboratory Results - last 24 hr 07/25/23 06:10: POC Glucose 265 H 07/25/23 10:33: POC Glucose 170 H 07/25/23 12:37: POC Glucose 169 H Radiography Diagnostic Testing: Radiology Impression Spine X-Ray 07/25/23 08:45 IMPRESSION: The localizing instrument is seen posterior to the L5 vertebrae. Electronically Signed: Artur Baldwin MD at 11:07 EST , Spine X-Ray 07/25/23 09:25 IMPRESSION: The localization instrument is seen posterior to the L5-S1 disc space level. Electronically Signed: Artur Baldwin MD at 14:23 EST , Spine X-Ray 07/25/23 09:50 IMPRESSION: Localization instruments as described above. Electronically Signed: Artur Baldwin MD at 11:05 EST , Physical Exam Narrative General: Alert, Oriented x3, Cooperative, No apparent distress HEENT: Atraumatic, PERRLA, EOMI, Normocephalic Oral: Moist Mucosa Neck: Supple, No JVD Lungs: Diminished, Normal air movement, No rhonchi, No wheeze, No rales Cardiovascular: Regular rate, Regular Rhythm, Normal S1, Normal S2, No murmurs Abdomen: Soft, Non Tender, Non-Distended, No Hepato-splenomegaly Extremities: edema, Capillary Refill Less than 3 Seconds Skin: Dressing CDI Musculoskeletal: No Tenderness to Palpation of Joints or Extremities Neurological: Cranial nerves II-XII grossly intact, Motor Exam 5/5 strength throughout, Sensory exam intact to light touch and pain Psych/Mental Status: Normal Affect, Appropriate Assessment & Plan Assessment/Plan (1) Status post laminectomy: PLAN: Plan 1. Spinal stenosis status post laminectomy on L4-5 on 07/25/2023 ? Pain management per primary ? PT/OT ? We will obtain a CBC and BMP in the morning, if an elevated creatinine then can hold losartan and oral hypoglycemics 2. HTN/HLD/sick sinus syndrome status post pacemaker ? Blood pressures are stable, can resume his home blood pressure medications ? We will monitor and make adjustments as necessary 3. DM2 ? She is on Actos and glipizide, with anticipation of discharge in the morning these can resume ? We will place on Accu-Cheks ACHS ? Sliding scale insulin ? We will monitor and make adjustments as necessary DVT: SCDs Charges/Coding Visit Charges Office Visits / Consults: 06813 OV L3 New 07/25/231816 <Electronically signed by Daryl Moy MD> Cosigner Signature (if applicable): CC: ~ Signed [facility] Work Phone: 1(630) 352-942011-07-2023 Procedure [facility] 07-24-2023 History and physical note Author Bull York [facility] July 24, 2023 9:25am Note Date/Time July 24, 2023 9 :25am [facility] Medical Records Department [address] [place] [address] History & Physical Exam 07/24/23 0924 MR#: [id number] Acct: [id number] Name: LOIDA DONG Rep #:[id number] : 1940 82 From: Bull Carvajal PCP: Dr. Rogelio Claros, Status:PRE [facility] Location: [facility] History and Physical Add?Addendum MR#: [id number] Acct: [id number] Name: LOIDA DONG Rep #: [id number] : 1940 Provider: Dr. Bull York DO Age/Sex: 82/M Location: [facility] Status: Signed Intake Vital Signs 01/20/2313:42 Height 6 ft 1 in Intake Visit Reasons: LUMBER SPINE Chief Complaint: Lumbar spine pain Is patient in pain?: Yes Pain scale (1-10): 9 Allergies No Known Allergies Allergy (Verified 01/27/23 11:08) Medications amlodipine 5 mg-valsartan 320 mg tablet 1 tab PO DAILY 02/16/22 [History Confirmed 01/27/23] atorvastatin 20 mg tablet 20 mg PO DAILY 02/16/22 [History Confirmed 01/27/23] carvedilol 25 mg tablet ea PO 02/16/22 [History Confirmed 01/27/23] esomeprazole magnesium 40 mg capsule,delayed release cap PO 02/16/22 [History Confirmed 01/27/23] glipizide 5 mg tablet, extended release 24 hr 5 mg PO DAILY 02/16/22 [History Confirmed 01/27/23] hydrochlorothiazide 25 mg tablet 25 mg PO DAILY 02/16/22 [History Confirmed 01/27/23] pioglitazone 30 mg tablet 30 mg PO DAILY 02/16/22 [History Confirmed 01/27/23] potassium chloride 8 mEq capsule,extended release 8 meq PO DAILY 02/16/22 [History Confirmed 01/27/23] PFSH Social History Smoking Status: Former smoker HPI LUMBER SPINE Details: Parts of this documentation were recorded by a scribe, this documentation accurately reflects the service provided and the decisions made by me, Dr. Bull York, DO 01/27/23 1108. LOIDA DONG is a 82 year old M here today for follow up on ongoing low back pain. He rates his pain a 9/10 today. He reports the pain has been getting worseover the last several months. He does report numbness and tingling into his legsbilaterally. He states the pain is constant. His previous injections with Dr. Dickinson were not helpful. He would like to discuss what to options are available for control of his pain. He has tried Tylenol, Ibuprofen, heat, ice and stretching to help with his pain. Mr. Dong returns after not having been seen in quite a while. He was dealing with his who was dying of lung cancer. She passed on in July of last year. He states that overall his symptoms are getting worse the pain goes down both legs with just a little bit of walking. Sitting down makes the pain go away. 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 His MRI scan was from 2020 so it is almost 2 years old. He wishes to have something done surgically and get it fixed. Can get some work done in his urologic system and his eyes sometime this month so it would probably be the end of February before any surgical intervention. On examination today it is noted that he can stand on his toes he can stand on his heels. He walks with a forward bent posture. Extension of his lumbar spine increases his pain and bending forward relieves his pain. He has good motor strength of all the major muscle groups ofboth lower extremities. He has barely perceptible Achilles reflexes and patellar reflexes bilaterally. We are ordering a new MRI scan of the lumbar spine. Plan on doing his decompression at L4-5 in February. I will see him again after the MRI scan. Coding Level of Care Code Off vis,est,level 3 Diagnoses Spinal stenosis at L4-L5 level M48.061 07/24/23924 <Electronically signed by Bull York DO> Cosigner Signature (if applicable): CC: Dr. Bull York, ; Dr. Rogelio Claros DO~ Signed [facility] Work Phone: 1(737) 609-456610-16-2023 Miscellaneous Notes* Telephone Encounter - Margaret Gamino - 07/03/2023 2:47 PM EDT I called and spoke to Loida and he stated that he has not yet had his back surgery. He stated thathe had to have a pace maker placed and has now got approved to have the back surgery but does not know when it will be yet. He stated he will call us back when he is ready to schedule this visit. Information placed in deferred patient folder at the desk. Margaret Galarza * Telephone Encounter - Frida Villar - 05/15/2023 3:13 PM EDT Spoke with patient and his surgery has been postponed and he would like to have us call him in mid-June to schedule. Frida Villar * Telephone Encounter - Mellisa Carter - 04/14/2023 4:46 PM EDT Received referral from Nurse DX: MONOCLONAL PROTEIN REF PROV: CHARLES MARTIN INS: PRIMETIME Spoke to pt and he stated that he is getting back surgery. Pt requested that we reach out to him end of April to schedule Placed pt's referral in Ready to Schedule folder at PSS desk [facility] History and physical note Author Bull York [facility] June 08, 2023 11:07am Note Date/Time June 08, 2023 11:07am [facility] Medical Records Department [address] [place] [address] History & Physical Exam 06/08/23 1105 MR#: [id number] Acct: [id number] Name: RIMMALOIDA Lilly Rep #:[id number] : 1940 82 From: Bull Carvajal PCP: Dr. Rogelio Claros, Status:PRE [facility] Location: [facility] History and Physical Add?Addendum MR#: [id number] Acct: [id number] Name: LOIDA DONG Rep #: [id number] : 1940 Provider: Dr. Bull York DO Age/Sex: 82/M Location: [facility] Status: Signed Intake Vital Signs 01/20/2313:42 Height 6 ft 1 in Intake Visit Reasons: LUMBER SPINE Chief Complaint: Lumbar spine pain Is patient in pain?: Yes Pain scale (1-10): 9 Allergies No Known Allergies Allergy (Verified 01/27/23 11:08) Medications amlodipine 5 mg-valsartan 320 mg tablet 1 tab PO DAILY 02/16/22 [History Confirmed 01/27/23] atorvastatin 20 mg tablet 20 mg PO DAILY 02/16/22 [History Confirmed 01/27/23] carvedilol 25 mg tablet ea PO 02/16/22 [History Confirmed 01/27/23] esomeprazole magnesium 40 mg capsule,delayed release cap PO 02/16/22 [History Confirmed 01/27/23] glipizide 5 mg tablet, extended release 24 hr 5 mg PO DAILY 02/16/22 [History Confirmed 01/27/23] hydrochlorothiazide 25 mg tablet 25 mg PO DAILY 02/16/22 [History Confirmed 01/27/23] pioglitazone 30 mg tablet 30 mg PO DAILY 02/16/22 [History Confirmed 01/27/23] potassium chloride 8 mEq capsule,extended release 8 meq PO DAILY 02/16/22 [History Confirmed 01/27/23] [facility] Social History Smoking Status: Former smoker HPI LUMBER SPINE Details: Parts of this documentation were recorded by a scribe, this documentation accurately reflects the service provided and the decisions made by me, Dr. Bull York, DO 01/27/23 1103. LOIDA DONG is a 82 year old M here today for follow up on ongoing low back pain. He rates his pain a 9/10 today. He reports the pain has been getting worseover the last several months. He does report numbness and tingling into his legsbilaterally. He states the pain is constant. His previous injections with Dr. Dickinson were not helpful. He would like to discuss what to options are available for control of his pain. He has tried Tylenol, Ibuprofen, heat, ice and stretching to help with his pain. Mr. Dong returns after not having been seen in quite a while. He was dealing with his who was dying of lung cancer. She passed on in July of last year. He states that overall his symptoms are getting worse the pain goes down both legs with just a little bit of walking. Sitting down makes the pain go away. 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 His MRI scan was from 2020 so it is almost 2 years old. He wishes to have something done surgically and get it fixed. Can get some work done in his urologic system and his eyes sometime this month so it would probably be the end of February before any surgical intervention. On examination today it is noted that he can stand on his toes he can stand on his heels. He walks with a forward bent posture. Extension of his lumbar spine increases his pain and bending forward relieves his pain. He has good motor strength of all the major muscle groups ofboth lower extremities. He has barely perceptible Achilles reflexes and patellar reflexes bilaterally. We are ordering a new MRI scan of the lumbar spine. Plan on doing his decompression at L4-5 in February. I will see him again after the MRI scan. Coding Level of Care Code Off vis,est,level 3 Diagnoses Spinal stenosis at L4-L5 level M48.061 Time Spent (min) 25 Assessment and Plan Assessment and Plan (1) Spinal stenosis at L4-L5 level: Status: Acute 06/08/23 1107 <Electronically signed by Bull York DO> Cosigner Signature (if applicable): CC: Dr. Bull York DO; Dr. Rogelio Claros DO~ Signed [facility] Work Phone: Evaluation + Plan note Future Appointments Appointment Date:05/30/2022 02:45:00 PM Scheduled Provider:ROGELIO CLAROS DO Location:[facility] Appointment Type:PC [facility] Evaluation + Plan note Future Appointments Appointment Date:07/13/2023 03:00:00 PM Scheduled Provider:ROGELIO CLAROS DO Location:[facility] Appointment Type:PC Wellness Annual [facility] evaluation note* Diagnosis Onset Date Resolution Status Spinal stenosis at L4-L5 level [facility] Work Phone: Evaluation note* Diagnosis Onset Date Resolution Status Spinal stenosis at L4-L5 level acute Spinal stenosis at L4-L5 level [facility] Work Phone: evaluation note* Diagnosis Onset Date Resolution Status Spinal stenosis at L4-L5 level chronic Preop cardiovascular exam ac micah Diabetes chronic Dyslipidemia chronic PVCs (premature ventricular contractions) chronic Spinal stenosis at L4-L5 level chronic Spinal stenosis at L4-L5 level [facility] Work Phone: Evaluation note* Diagnosis Onset Date Resolution Status Diabetes chronic Dyslipidemia chronic Preop cardiovascular exam ch ronic PVCs (premature ventricular contractions) chronic Spinal stenosis at L4-L5 level chronic Spinal stenosis at L4-L5 level chronic Accelerated idioventricular rhythm acute Sick sinus syndrome chronic Pacemaker chronic Accelerated idioventricular rhythm acute Pacemaker chronic Sick sinus syndrome chronic Accelerated idioventricular rhythm acute Pacemaker chronic Sick sinus syndrome chronic Ankle edema, bilateral acute Diabetes chronic Dyslipidemia chronic Pacemaker chronic Preop cardiovascular exam ch ronic PVCs (premature ventricular contractions) chronic Sick sinus syndrome chronic Spinal stenosis at L4-L5 level chronic Accelerated idioventricular rhythm acute Pacemaker chronic Sick sinus syndrome chronic [facility] noteNo assessment information available [facility] Work Phone: Hospital course Narrative No data available for this section [facility] Hospital Discharge instructions No data available for this section [facility] Progress note No data available for this section [facility] Reason for referral (narrative)No reason for referral [facility] Work Phone: Summary Purpose Family History No Family History Records Found Relationship Condition Age at Onset Recorded Date/T camacho brother Hypertension Unknown Atrial fibrillation Unknown Malignant neoplasm Unknown father Malignant neoplasm Unknown Advance Directives No Advanced Directives Records Found Advance Directive Response Recorded Date/ Time Living Will No May 29, 2023 10:22am Power of Information Technology Coordinator No May 10:22am Advance Directive Response Recorded Date/ Time Advance Directives No June 19, 2023 10:44am Living Will No July 25 3:32pm Power of Information Technology Coordinator No July 25, 2023 3:32pm Documents on File Type Date Recorded Patient Head Butler Expl anation Advance Directive(s) 01/24/2017 7:37 AM Advance Directive Response Recorded Date/ Time Advance Directives No July 3:35pm Chief Complaint and Reason for Visit Chief Complaint LUMBER SPINE SPINAL STENOSIS Reason for Visit Spinal stenosis at L 4-L5 level Chief Complaint LUMBER SPINE SPINAL STENOSIS LUMBAR SPINE CHRONIC KIDNEY 2 DISEASE Reason for Visit Spinal stenosis at L 4-L5 level Spinal stenosis at L4-L5 level Chief Complaint SPINAL STENOSIS LUMBAR SPINE CHRONIC KIDNEY 2 DISEASE PREOP SURG CLEARANCE (SELF) E ORDER Encounter for preprocedural cardiovascular examina Encounter for preprocedural cardiovascular examina lumbar spine Reason for Visit Spinal stenosis at L 4-L5 level Preop cardiovascular exam Diabetes Dyslipidemia PVCs (premature ventricular contractions) Spinal stenosis at L4-L5 level Spinal stenosis at L4-L5 level Chief Complaint LUMBAR SPINE CHRONIC KIDNEY 2 DISEASE PREOP LUMBAR LAMINECTOMTY DECOMPRESSION SURG CLEARANCE (SELF) E ORDER Encounter for preprocedural cardiovascular examina Encounter for preprocedural cardiovascular examina lumbar spine Encounter for preprocedural cardiovascular examina Amb Documentation Amb Documentation LUMBAR LAMINECTOMTY DECOMPRESSION Reason for Visit Spinal stenosis at L 4-L5 level Preop cardiovascular exam Diabetes Dyslipidemia PVCs (premature ventricular contractions) Spinal stenosis at L4-L5 level Spinal stenosis at L4-L5 level Chief Complaint PREOP LUMBAR LAMINECTOMTY DECOMPRESSION SURG CLEARANCE (SELF) E ORDER Encounter for preprocedural cardiovascular examina Encounter for preprocedural cardiovascular examina lumbar spine Encounter for preprocedural cardiovascular examina Amb Documentation Amb Documentation LUMBAR LAMINECTOMTY DECOMPRESSION PPM teaching EORDERS PACEMAKER PACEMAKER PACEMAKER INPATIENT 1st day implant check 1 wk s/p PPM implant wound check, AR at 1pm 6 W FU, Seeing Zee afterwards lumbar spine Lumbar laminectomy decompression L4 6 wk post PPM implant Lumbar laminectomy decompression L4 Lumbar laminectomy decompression L4 Lumbar laminectomy decompression L4 Lumbar laminectomy decompression L4 Reason for Visit Diabetes Dyslipidemia Preop cardiovascular exam PVCs (premature ventricular contractions) Spinal stenosis at L4-L5 level Spinal stenosis at L4-L5 level Accelerated idioventricular rhythm Sick sinus syndrome Pacemaker Accelerated idioventricular rhythm Pacemaker Sick sinus syndrome Accelerated idioventricular rhythm Pacemaker Sick sinus syndrome Ankle edema, bilateral Diabetes Dyslipidemia Pacemaker Preop cardiovascular exam PVCs (premature ventricular contractions) Sick sinus syndrome Spinal stenosis at L4-L5 level Accelerated idioventricular rhythm Pacemaker Sick sinus syndrome Status post laminectomy Chief Complaint Admit Date Pacer Check Remote December 27, 2024 2:0 0am 6 M FU March 18, 2025 1:55p m Additional Source Comments (unrecognized sect ion and content) No Status Records FoundNo Status Records FoundNo Status Records FoundNo Status Records Found INFORMATION SOURCE (unrecogn ized section and content) DATE CREATED AUTHOR 12/23/2018 [facility] DATE CREATED AUTHOR AUTHOR'S ORGANIZ ATION 01/21/2023 [facility] ([place] DATE CREATED AUTHOR AUTHOR'S ORGANIZ ATION 09/01/2023 [facility] DATE CREATED AUTHOR AUTHOR'S ORGANIZ ATION 03/30/2025 [facility] Patient Care team informatio n (unrecognized section and content) Team Status: Active Member Role Status Dates Dr. Rogelio Claros DO Family Provider Active Dr. Rogelio Claros DO Primary Care Provider Active Team Status: Inactive Member Role Status Dates Dr. Rogelio Claros DO Primary Care Provider, Referri ng Provider Active Dr. Bull York , DO Attending Provider Active Team Status: Inactive Member Role Status Dates Dr. Rogelio Claros DO Primary Care Provider Active Dr. Bull York , DO Attending Provider, Referring P rovider Active Team Status: Inactive Member Role Status Dates Dr. Rogelio Claros DO Primary Care Provider Active Dr. Charles Martin MD Attending Provider, Re ferring Provider Active Team Status: Inactive Member Role Status Dates Dr. Rogelio Claros DO Primary Care Provider, Referri ng Provider Active Dr. Greg Nam MD Attending Provider Active Team Status: Active Member Role Status Dates Dr. Rogelio Claros DO Primary Care Provider Active Dr. Jud Collazo MD Attending Provider Activ e Dr. Bull York , DO Referring Provider Active Team Status: Active Member Role Status Dates Dr. Rogelio Claros DO Primary Care Provider Active Elsa Shirley PA, PA Attending Provider, Referr ing Provider Active Team Status: Inactive Member Role Status Dates Dr. Rogelio Claros DO Primary Care Provider Active Elsa Shirley PA, PA Attending Provider, Referr ing Provider Active Team Status: Inactive Member Role Status Dates Dr. Rogelio Claros DO Primary Care Provider Active Dr. Greg Nam MD Attending Provider, Referring Pr ovider Active Team Status: Active Member Role Status Dates Dr. Rogelio Claros DO Primary Care Provider Active Elsa Shirley PA, PA Referring Provider, Other Provider Active Dr. Greg Nam MD Attending Provider Active Team Status: Active Member Role Status Dates Dr. Rogelio Claros DO Primary Care Provider Active [employer] SHEETROCK APPLICATOR, SHEETROCK APPLICATOR-C Attending Provider Active Team Status: Active Member Role Status Dates Dr. Rogelio Claros DO Primary Care Provider Active Dr. Greg Nam MD Attending Provider Active Team Status: Active Member Role Status Dates Dr. Rogelio Claros DO Primary Care Provider Active Dr. Bull York , DO Attending Provide r, Referring Provider, Other Provider Active Team Status: Active Member Role Status Dates Dr. Rogelio Claros DO Primary Care Provider Active Dr. Greg Nam MD Attending Provider, Referring Pr ovider Active Team Status: Inactive Member Role Status Dates Dr. Rogelio Hyacinth , DO Primary Care Provider, Referri ng Provider Active Annie Field Attending Provider Active Team Status: Active Member Role Status Dates Dr. Rogelio Claros DO Primary Care Provider Active Dr. Jonh Gracia MD Attending Provider, Other Provide r Active Team Status: Active Member Role Status Dates Dr. Rogelio Claros , DO Primary Care Provider Active Dr. Jonh Gracia MD Admit Provider, Att ending Provider, Other Provider Active Team Status: Active Member Role Status Dates Dr. Rogelio Claros DO Primary Care Provider Active Dr. Bull York , DO Attending Provider, Other Provi rosemarie Active Team Status: Active Member Role Status Dates Dr. Rogelio Claros , DO Primary Care Provider Active Dr. Bull York , DO Admit Provider, R eferring Provider, Other Provider Active Dr. Daryl Moy MD Attending Provider, Other Provider Active Team Status: Active Member Role Status Dates Dr. Rogelio Claros DO Primary Care Provider Active Dr. Bull York , DO Admit Provider, A ttending Provider, Referring Provider, Other Provider Active Dr. Daryl Moy MD Other Provider Active Dr. Sher Cuellar , Other Provider Active Team Status: Inactive Member Role Status Dates Dr. Rogelio Claros DO Primary Care Provider Active Dr. Bull York , DO Admit Provider, A ttending Provider, Referring Provider Active Dr. Daryl Moy MD Other Provider Active Dr. Sher Cuellar , DO Other Provider Active Team Status: Inactive Member Role Status Dates Dr. Rogelio Claros DO Primary Care Provider Active Dr. Jonh Gracia MD Admit Provider, Attending Provide r Active Team Status: Inactive Member Role Status Dates Dr. Rogelio Claros DO Primary Care Provider Active [employer] SHEETROCK APPLICATOR, SHEETROCK APPLICATOR-C Attending Provider, Referring Pro vider Active [employer] Installations Mechanic Relationship Specialty Start Date End Date Rogelio lCaros DO PCP - General Family Medicine 02/27/12 Team Status: Active Member Role/Relationship Status Dates Dr. Rogelio Claros DO Primary Care Provider Active Team Status: Inactive Member Role/Relationship Status Dates Dr. Rogelio Claros DO Primary Care Provider Active Start: December 27, 2024 End: December 27, 2024 Dr. Jonh Gracia MD Attending Provider Active S tart: December 27, 2024 End: December 27, 2024 Dr. Jonh Gracia MD Referring Provider Active S tart: December 27, 2024 End: December 27, 2024 Team Status: Inactive Member Role/Relationship Status Dates Dr. Rogelio Claros DO Primary Care Provider Active Start: March 18, 2025 End: March 18, 2025 Dr. Rogelio Claros DO Referring Provider Active Start: March 18, 2025 End: March 18, 2025 ABHAY Land Attending Provider Active St art: March 18, 2025 End: March 18, 2025 Goals (unrecognized section and content) Goals may be documented in a n alternate section Source Comments (unrecognize d section and content) In the event this informatio n is protected by the Federal Confidentiality of Alcohol and Drug Abuse Patient Records regulations: The Federal rules restrict any use of the information to criminally investigate or prosecute any alcohol or drug abuse patient.[facility] Reason for Visit (unrecogniz ed section and content) Reason Comments New Patient FOR RECORDS PERTAINING TO PATIENTS WHO ARE OR HAVE BEEN ENROLLED IN A CHEMICAL DEPENDENCY/SUBSTANCEABUSE PROGRAM, SOME INFORMATION MAY BE OMITTED. This clinical summary was aggregated from multiple sources. Caution should be exercised in using it in the provision of clinical care. This summary normalizes information from multiple sources, and as a consequence, information in this document may materially change the coding, format and clinical context of patient data. In addition, data may be omitted in some cases. CLINICAL DECISIONS SHOULD BE BASED ON THE PRIMARY CLINICAL RECORDS. [employer] [facility]. provides no warranty or guarantee of the accuracy or completeness of information in this document.
== END | disposition home or self-care (01) ==
LOC: LAB 14:57
PROVIDERS: PCP Student in an Organized Health Care Education/Training Program; Referring Provider Student in an Organized Health Care Education/Training Program; Visit Provider Student in an Organized Health Care Education/Training Program
DX: I10 Essential (primary) hypertension (principal)
CPT/HCPCS: 36415; 80048

== ENCOUNTER → 2025-05-30 | Outpatient (CLI) | payer MEDICARE, SELFPAY ==
[2025-05-30 17:14] LABS: Anion Gap 11 (5-15); BUN 21 mg/dL (4-19); BUN/Creat Ratio 34.9 RATIO (10-20); Calcium,Total 9.4 mg/dL (7.6-11.0); Carbon Dioxide 27.4 mmol/L (21.0-32.0); Chloride 103 mmol/L (98-108); Glucose 98 mg/dL (70-99); Potassium 3.7 mmol/L (3.3-5.1)
== END | disposition home or self-care (01) ==
LOC: LAB 16:07
PROVIDERS: PCP Student in an Organized Health Care Education/Training Program; Referring Provider Student in an Organized Health Care Education/Training Program; Visit Provider Student in an Organized Health Care Education/Training Program
DX: I10 Essential (primary) hypertension (principal); E11.29 Type 2 diabetes mellitus with other diabetic kidney complication
CPT/HCPCS: 36415; 80048